=== PATIENT | female | born 1975 | race Caucasian/White ===

== ENCOUNTER 2016-10-20 13:59 | Emergency (ER) | payer OTHER ==
[~2016-10-20] VITALS: Ht 160 cm; Wt 63.5 kg
[~2016-10-20 13:59] MED LIST: AMOX500T2 PO; BENT20TA PO; CLON0.5T PO; FLAG500T PO; METO25TAB PO; MULT1TAB8 PO; PROBCAP14 PO; PROT1TAB2 PO
[2016-10-20] MEDS ORDERED: TOPA25TA10 PO (14:26)
[2016-10-20] MEDS ORDERED: diphenhydrAMINE INJ 50MG/ML VIAL (J1200) IV STA (14:43)
[2016-10-20] MEDS ORDERED: NS 1,000 ML IV ONE (14:45)
[2016-10-20] MEDS ORDERED: METOCLOPRAMIDE INJ 10MG/2ML VIAL (J2765) IV ONE (14:45)
[2016-10-20 15:27] LABS: BASO # 0.1 K/mm3 (0.0-0.2); BASO % 1.2 % (0.0-1.0); EOS # 0.5 K/mm3 (0.0-0.50); EOS % 6.4 % (0.0-3.0); LARGE UNSTAINED CELL # 0.1 K/mm3 (0.0-0.4); LARGE UNSTAINED CELL % 1.3 % (0.0-4.0); LYMPH # 1.9 K/mm3 (1.5-4.5); LYMPH % 24.1 % (24.0-44.0); MEAN CORPUSCULAR HEMOGLOBIN 32.8 pg (27.0-33.0); MEAN CORPUSCULAR HGB CONC 34.6 g/dl (32.0-36.5); MEAN CORPUSCULAR VOLUME 94.8 fl (80.0-96.0); MONO # 0.5 K/mm3 (0.0-0.8); NEUTROPHILS # 4.6 K/mm3 (1.8-7.7); PLATELET COUNT, AUTOMATED 304 k/mm3 (150-450); RED CELL DISTRIBUTION WIDTH 12.1 % (11.5-14.5); WHITE BLOOD COUNT 7.6 K/mm3 (4.0-10.0)
[2016-10-20 15:33] LABS: INR 1.07
[2016-10-20 15:46] LABS: ANION GAP 3 MEQ/L (8-16); BLOOD UREA NITROGEN 7 MG/DL (7-18); CALCIUM LEVEL 8.5 MG/DL (8.5-10.1); CARBON DIOXIDE LEVEL 27 MEQ/L (21-32); CHLORIDE LEVEL 109 MEQ/L (98-107); CREATININE FOR GFR 0.68 MG/DL (0.55-1.02); GLOMERULAR FILTRATION RATE > 60.0 (>58); GLUCOSE, FASTING 90 MG/DL (70-105); POTASSIUM SERUM 4.3 MEQ/L (3.5-5.1); SODIUM LEVEL 139 MEQ/L (136-145)
[2016-10-20 15:54] LABS: ERYTHROCYTE SEDIMENTATION RATE 6 mm/hr (0-20)
[2016-10-20] MEDS ORDERED: KETOROLAC 30 MG/ML VIAL (J1885) IV ONE (16:15)
--- NOTE | 2016-10-20 16:20 | REP ---
CT study of the brain without contrast: History: Left-sided weakness and headache. Comparison head CT study July 29, 2016, done at [facility]. CT findings: Digital lateral shingle cutter radiograph is unremarkable. Bone window settings demonstrate an intact bony calvarium. There is some mucosal thickening and mucus in the left side of the sphenoid sinus again noted. No intraorbital abnormality is seen. On soft tissue window settings, the lateral, third, and fourth ventricles are normal in size and position. Mancilla-white differentiation pattern is normal above and below the tentorium. There is no evidence of intracranial hemorrhage. No infarction is seen. No extra-axial fluid collection or mass lesion is observed. Impression: Mucus in the left side of the sphenoid sinus again noted. Otherwise negative noncontrast head CT. Signed by Naveed Olguin MD 10/20/2016 04:45 P
[2016-10-20 16:52] VITALS: BP 118/65
--- NOTE | 2016-10-22 21:12 | ED PDOC ---
Post-Departure Follow-Up dr pelayo and dr zaragoza faxed formal report of ct head for fu Jan Varghese MD Oct 22, 2016 21:12
== END 2016-10-20 17:14 | disposition home or self-care (01) ==
LOC: M ED 14:52
DX: G43.909 Migraine, unspecified, not intractable, without status migrainosus (principal); M50.30 Other cervical disc degeneration, unspecified cervical region; I10 Essential (primary) hypertension; F31.9 Bipolar disorder, unspecified; K57.90 Diverticulosis of intestine, part unspecified, without perforation or abscess without bleeding; F17.210 Nicotine dependence, cigarettes, uncomplicated; Z79.899 Other long term (current) drug therapy; Z88.1 Allergy status to other antibiotic agents; Z88.5 Allergy status to narcotic agent
CPT/HCPCS: 36415; 70450; 80048; 85025; 85610; 85652; 85730; 86140; 96374; 96375; 99283; J1200; J1885; J2765

== ENCOUNTER 2017-02-17 12:08 | Emergency (ER) | payer OTHER ==
[~2017-02-17] VITALS: Ht 160 cm; Wt 71.4 kg
[~2017-02-17 12:08] MED LIST changes: +TOPA1TAB PO
[2017-02-17] MEDS ORDERED: METO-346 PO (12:22)
[2017-02-17 13:09] LABS: BASO # 0.1 K/mm3 (0.0-0.2); EOS # 0.3 K/mm3 (0.0-0.50); EOS % 4.7 % (0.0-3.0); LARGE UNSTAINED CELL # 0.1 K/mm3 (0.0-0.4); LARGE UNSTAINED CELL % 1.9 % (0.0-4.0); LYMPH # 2.2 K/mm3 (1.5-4.5); LYMPH % 29.1 % (24.0-44.0); MEAN CORPUSCULAR HEMOGLOBIN 33.1 pg (27.0-33.0); MEAN CORPUSCULAR HGB CONC 34.7 g/dl (32.0-36.5); MEAN CORPUSCULAR VOLUME 95.4 fl (80.0-96.0); MONO # 0.3 K/mm3 (0.0-0.8); MONO % 3.8 % (0.0-5.0); NEUTROPHILS # 4.1 K/mm3 (1.8-7.7); NEUTROPHILS % 59.4 % (36.0-66.0); PLATELET COUNT, AUTOMATED 271 k/mm3 (150-450); RED CELL DISTRIBUTION WIDTH 12.5 % (11.5-14.5); WHITE BLOOD COUNT 6.9 K/mm3 (4.0-10.0)
[2017-02-17 13:15] LABS: INR 0.94
[2017-02-17 13:31] LABS: ALBUMIN 3.7 GM/DL (3.2-5.2); ALBUMIN/GLOBULIN RATIO 0.95 (1.00-1.93); ALKALINE PHOSPHATASE 63 U/L (45-117); ALT/SGPT 27 U/L (12-78); ANION GAP 6 MEQ/L (8-16); AST/SGOT 17 U/L (15-37); BILIRUBIN,DIRECT < 0.1 MG/DL (0.0-0.2); BILIRUBIN,TOTAL 0.4 MG/DL (0.2-1.0); BLOOD UREA NITROGEN 6 MG/DL (7-18); CALCIUM LEVEL 8.7 MG/DL (8.5-10.1); CARBON DIOXIDE LEVEL 27 MEQ/L (21-32); CHLORIDE LEVEL 106 MEQ/L (98-107); GLOMERULAR FILTRATION RATE > 60.0 (>58); GLUCOSE, FASTING 93 MG/DL (70-105); POTASSIUM SERUM 3.6 MEQ/L (3.5-5.1); SODIUM LEVEL 139 MEQ/L (136-145); TOTAL PROTEIN 7.6 GM/DL (6.4-8.2)
[2017-02-17] MEDS ORDERED: NS 1,000 ML IV ONE (14:15)
[2017-02-17] MEDS ORDERED: LORazepam 2 MG/ML VIAL (J2060) IV STA (14:18)
[2017-02-17 14:26] LABS: MAGNESIUM LEVEL 2.5 MG/DL (1.8-2.4)
--- NOTE | 2017-02-17 14:43 | REP ---
CHEST, TWO VIEWS: There is no evidence of acute infiltrate. No pleural effusion is seen. The heart is normal in size. The mediastinal silhouette is unremarkable. The visualized osseous structures are intact. IMPRESSION: No acute pulmonary disease. Signed by Herbie Mancilla MD 02/17/2017 08:12 P
[2017-02-17 16:28] VITALS: BP 125/78
--- NOTE | 2017-02-18 20:06 | ECGEPIP ---
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
[2017-05-17] MEDS ORDERED: BACT800T5 PO (10:21)
[2017-05-17] MEDS ORDERED: FLAG500T PO (10:21)
[2017-05-17] MEDS ORDERED: NORCOTAB PO (10:22)
== END 2017-02-17 16:32 | disposition home or self-care (01) ==
LOC: M ED 12:08
DX: R00.2 Palpitations (principal); I10 Essential (primary) hypertension; R53.83 Other fatigue; F41.9 Anxiety disorder, unspecified; F17.200 Nicotine dependence, unspecified, uncomplicated; Z79.899 Other long term (current) drug therapy; Z88.5 Allergy status to narcotic agent; Z88.1 Allergy status to other antibiotic agents
CPT/HCPCS: 71020; 80048; 80076; 82550; 82553; 83690; 83735; 84443; 85025; 85610; 85730; 93000; 93041; 94760; 96374; 99285; J2060

== ENCOUNTER → 2017-03-12 | Outpatient (REF) | payer OTHER ==
[~2017-03-12] MED LIST changes: +BACT800T5 PO; +METH4PACK; +METO-346 PO; +NORCOTAB PO; +PRED20TA PO
== END ==
LOC: M SFHCLERA 19:30
PROVIDERS: ATTEND Nurse Practitioner Family
DX: J06.9 Acute upper respiratory infection, unspecified (principal); N30.01 Acute cystitis with hematuria

== ENCOUNTER → 2017-03-13 | Outpatient (CLI) | payer OTHER ==
--- NOTE | 2017-03-13 18:25 | REP ---
Clinical: Acute cough . Comparison: 02/17/2017 . Technique: PA and lateral. Findings: The mediastinum and cardiac silhouette are normal. The lung cervantes are clear and without acute consolidation, effusion, or pneumothorax. The skeletal structures are intact and normal. Impression: 1. No acute cardiopulmonary process. Signed by Willem Deng MD 03/13/2017 06:16 P
== END ==
LOC: M LRY 18:00
PROVIDERS: ATTEND Nurse Practitioner Family
DX: R05 Cough (principal)

== ENCOUNTER 2017-03-18 16:56 | Emergency (ER) | payer OTHER ==
[~2017-03-18] VITALS: Ht 160 cm; Wt 65.9 kg
[~2017-03-18 16:56] MED LIST changes: -BACT800T5 PO; -METH4PACK; -NORCOTAB PO; -PRED20TA PO
[2017-03-18] MEDS ORDERED: METH4PACK (17:30)
[2017-03-18] MEDS ORDERED: IPRATROPIUM 0.5MG/ALBUTEROL 2.5MG INH SOL UD 3ML (DUONEB)(J7620) NEB PRN (17:45)
[2017-03-18] MEDS ORDERED: IPRATROPIUM 0.5MG/ALBUTEROL 2.5MG INH SOL UD 3ML (DUONEB)(J7620) NEB ONE (17:45)
[2017-03-18] MEDS ORDERED: ALBUTEROL SULFATE 2.5 MG/0.5 ML INH NEB SOLN INH ONE (17:45)
[2017-03-18] MEDS ORDERED: methylPREDNISolone INJ 125 MG/2 ML VIAL (J2930) IM ONE (18:30)
[2017-03-18] MEDS ORDERED: PRED20TA PO (18:42)
[2017-03-18 18:51] VITALS: BP 135/92
[2017-05-17] MEDS ORDERED: BACT800T5 PO (10:21)
[2017-05-17] MEDS ORDERED: FLAG500T PO (10:21)
[2017-05-17] MEDS ORDERED: NORCOTAB PO (10:22)
== END 2017-03-18 18:52 | disposition home or self-care (01) ==
LOC: M ED 16:56
DX: J45.901 Unspecified asthma with (acute) exacerbation (principal); J06.9 Acute upper respiratory infection, unspecified; F41.9 Anxiety disorder, unspecified; F31.9 Bipolar disorder, unspecified; F17.210 Nicotine dependence, cigarettes, uncomplicated; Z88.5 Allergy status to narcotic agent; Z88.1 Allergy status to other antibiotic agents; Z79.899 Other long term (current) drug therapy
CPT/HCPCS: 94640; 96372; 99282; J2930

== ENCOUNTER 2017-07-13 10:43 | Emergency (ER) | payer OTHER ==
[2017-07-13] MEDS: NS 1,000 ML IV (11:30)
[2017-07-13 11:56] LABS: BASO # 0.1 10^3/uL (0.0-0.2); BASO % 1.1 % (0.0-1.0); EOS # 0.8 10^3/uL (0.0-0.50); EOS % 8.4 % (0.0-3.0); HEMATOCRIT 39.4 % (36.0-47.0); HEMOGLOBIN 13.5 g/dl (12.0-16.0); IMMATURE GRANULOCYTE % 0.3 % (0-0); LYMPH # 2.2 10^3/uL (1.5-4.5); LYMPH % 23.5 % (24.0-44.0); MEAN CORPUSCULAR HGB CONC 34.3 g/dl (32.0-36.5); MEAN CORPUSCULAR VOLUME 96.3 fl (80.0-96.0); MONO # 0.7 10^3/uL (0.0-0.8); MONO % 7.3 % (0.0-5.0); NEUTROPHILS # 5.4 10^3/uL (1.8-7.7); NEUTROPHILS % 59.4 % (36.0-66.0); PLATELET COUNT, AUTOMATED 278 10^3/uL (150-450); RED BLOOD COUNT 4.09 10^6/uL (4.00-5.40); RED CELL DISTRIBUTION WIDTH 12.6 % (11.5-14.5); WHITE BLOOD COUNT 9.1 10^3/uL (4.0-10.0)
[2017-07-13 11:57] LABS: AMORPHOUS SEDIMENT RFX SMALL (NEGATIVE); KETONE, URINE AUTO RFX TRACE mg/dL (NEGATIVE); LEUKOCYTE ESTERASE UR AUTO RFX 1+ (NEGATIVE); NITRITE, URINE AUTO RFX NEGATIVE (NEGATIVE); RBC, URINE AUTO RFX 3 /HPF (0-3); SPECIFIC GRAVITY UR AUTO RFX 1.017 (1.002-1.035); SQUAM EPITHELIAL CELL UR AURFX 14 /HPF (0-6); WBC, URINE AUTO RFX 3 /HPF (0-3)
[2017-07-13] MEDS: ONDANSETRON 4MG/2ML VIAL (J2405) IV (12:00)
[2017-07-13] MEDS: KETOROLAC 30 MG/ML VIAL (J1885) IV (12:00)
[2017-07-13 12:17] LABS: ALBUMIN 3.6 GM/DL (3.2-5.2); ALBUMIN/GLOBULIN RATIO 1.13 (1.00-1.93); ALKALINE PHOSPHATASE 68 U/L (45-117); ALT/SGPT 42 U/L (12-78); AMYLASE 22 U/L (25-115); ANION GAP 9 MEQ/L (8-16); AST/SGOT 30 U/L (7-37); BILIRUBIN,TOTAL 0.2 MG/DL (0.2-1.0); BLOOD UREA NITROGEN 9 MG/DL (7-18); CALCIUM LEVEL 8.4 MG/DL (8.5-10.1); CARBON DIOXIDE LEVEL 24 MEQ/L (21-32); CHLORIDE LEVEL 107 MEQ/L (98-107); CREATININE FOR GFR 0.65 MG/DL (0.55-1.02); GLOMERULAR FILTRATION RATE > 60.0 (>58); GLUCOSE, FASTING 91 MG/DL (70-105); LIPASE 92 U/L (73-393); SODIUM LEVEL 140 MEQ/L (136-145); TOTAL PROTEIN 6.8 GM/DL (6.4-8.2)
[2017-07-13] MEDS: PHENAZOPYRIDINE 100 MG TAB PO (13:02)
[2017-07-13] MEDS: NITROFURANTOIN (MACROBID) 100 MG CAP PO (13:02)
[2017-07-13] MEDS: DICYCLOMINE 10 MG CAP PO (13:02)
[2017-07-13] MEDS: PERCOCET 5MG/325MG TAB PO (13:10)
== END 2017-07-13 13:21 | disposition home or self-care (01) ==
LOC: M ED 10:43
DX: R19.7 Diarrhea, unspecified (principal); K57.30 Diverticulosis of large intestine without perforation or abscess without bleeding; N39.0 Urinary tract infection, site not specified; J45.909 Unspecified asthma, uncomplicated; I10 Essential (primary) hypertension; K21.9 Gastro-esophageal reflux disease without esophagitis; F17.210 Nicotine dependence, cigarettes, uncomplicated; F41.9 Anxiety disorder, unspecified; F31.9 Bipolar disorder, unspecified; Z79.899 Other long term (current) drug therapy; Z88.5 Allergy status to narcotic agent; Z88.1 Allergy status to other antibiotic agents; Z98.890 Other specified postprocedural states
CPT/HCPCS: J2405

== ENCOUNTER 2017-08-08 06:11 | Emergency (ER) | payer OTHER ==
[2017-08-08] MEDS: KETOROLAC 60 MG/2 ML VIAL (J1885) IM (07:16)
== END 2017-08-08 08:24 | disposition home or self-care (01) ==
LOC: M ED 06:11
DX: S93.402A Sprain of unspecified ligament of left ankle, initial encounter (principal); X50.9XXA Other and unspecified overexertion or strenuous movements or postures, initial encounter; Y92.89 Other specified places as the place of occurrence of the external cause; J45.909 Unspecified asthma, uncomplicated; F31.9 Bipolar disorder, unspecified; F17.210 Nicotine dependence, cigarettes, uncomplicated; Z79.899 Other long term (current) drug therapy; Z88.5 Allergy status to narcotic agent; Z88.1 Allergy status to other antibiotic agents; Z98.890 Other specified postprocedural states
CPT/HCPCS: J1885

== ENCOUNTER 2017-09-02 18:36 | Emergency (ER) | payer OTHER ==
[2017-09-02] MEDS: NS 1,000 ML IV (20:15)
[2017-09-02] MEDS: KETOROLAC 30 MG/ML VIAL (J1885) IV (20:35)
[2017-09-02] MEDS: ONDANSETRON 4MG/2ML VIAL (J2405) IV (20:35)
[2017-09-02 20:38] LABS: BASO # 0.1 10^3/uL (0.0-0.2); BASO % 1.2 % (0.0-1.0); EOS # 0.3 10^3/uL (0.0-0.50); EOS % 2.9 % (0.0-3.0); HEMATOCRIT 39.2 % (36.0-47.0); HEMOGLOBIN 13.5 g/dl (12.0-16.0); IMMATURE GRANULOCYTE % 0.4 % (0-3.0); LYMPH # 2.9 10^3/uL (1.5-4.5); LYMPH % 25.4 % (24.0-44.0); MEAN CORPUSCULAR HEMOGLOBIN 32.5 pg (27.0-33.0); MEAN CORPUSCULAR HGB CONC 34.4 g/dl (32.0-36.5); MEAN CORPUSCULAR VOLUME 94.2 fl (80.0-96.0); MONO # 0.9 10^3/uL (0.0-0.8); MONO % 7.6 % (0.0-5.0); NEUTROPHILS % 62.5 % (36.0-66.0); PLATELET COUNT, AUTOMATED 279 10^3/uL (150-450); RED BLOOD COUNT 4.16 10^6/uL (4.00-5.40); RED CELL DISTRIBUTION WIDTH 11.9 % (11.5-14.5); WHITE BLOOD COUNT 11.2 10^3/uL (4.0-10.0)
[2017-09-02 21:02] LABS: ALBUMIN 3.6 GM/DL (3.2-5.2); ALBUMIN/GLOBULIN RATIO 1.09 (1.00-1.93); ALKALINE PHOSPHATASE 73 U/L (45-117); ALT/SGPT 36 U/L (12-78); ANION GAP 6 MEQ/L (8-16); AST/SGOT 23 U/L (7-37); BILIRUBIN,DIRECT 0.1 MG/DL (0.0-0.2); BILIRUBIN,TOTAL 0.4 MG/DL (0.2-1.0); BLOOD UREA NITROGEN 5 MG/DL (7-18); CALCIUM LEVEL 8.5 MG/DL (8.5-10.1); CARBON DIOXIDE LEVEL 25 MEQ/L (21-32); CHLORIDE LEVEL 108 MEQ/L (98-107); CREATININE FOR GFR 0.53 MG/DL (0.55-1.30); GLOMERULAR FILTRATION RATE > 60.0 (>58); GLUCOSE, FASTING 81 MG/DL (70-100); POTASSIUM SERUM 4.5 MEQ/L (3.5-5.1); SODIUM LEVEL 139 MEQ/L (136-145); TOTAL PROTEIN 6.9 GM/DL (6.4-8.2)
[2017-09-02 21:05] LABS: LACTIC ACID SEPSIS PROTOCOL 0.9 MMOL/L (0.4-2.0)
[2017-09-02 21:09] LABS: KETONE, URINE AUTO RFX NEGATIVE (NEGATIVE); LEUKOCYTE ESTERASE UR AUTO RFX NEGATIVE (NEGATIVE); NITRITE, URINE AUTO RFX NEGATIVE (NEGATIVE); RBC, URINE AUTO RFX 1 /HPF (0-3); SPECIFIC GRAVITY UR AUTO RFX 1.001 (1.002-1.035); SQUAM EPITHELIAL CELL UR AURFX 1 /HPF (0-6); WBC, URINE AUTO RFX 1 /HPF (0-3)
[2017-09-02] MEDS ORDERED: ISOVUE-370 76% 100ML VIAL (Q9967) As Ordered (21:19)
[2017-09-02] MEDS: PIPERACILLIN/TAZOBACTAM SOD 3.375 GM in APPROPRIATE DILUENT 1 EA IV (23:53)
[2017-09-03] MEDS: OXYCODONE/APAP 5MG/325MG(BULK FOR ED) 1 TABLET PO (00:31)
== END 2017-09-03 00:46 | disposition home or self-care (01) ==
LOC: M ED 09-03 00:46
DX: K57.30 Diverticulosis of large intestine without perforation or abscess without bleeding (principal); F17.200 Nicotine dependence, unspecified, uncomplicated; Z79.899 Other long term (current) drug therapy; Z88.1 Allergy status to other antibiotic agents; Z88.5 Allergy status to narcotic agent
CPT/HCPCS: J2405

== ENCOUNTER 2017-12-25 06:51 | Inpatient (IN) | payer OTHER ==
[2017-12-25 07:50] LABS: HEMATOCRIT 42.8 % (36.0-47.0); HEMOGLOBIN 14.9 g/dl (12.0-15.5); MEAN CORPUSCULAR HEMOGLOBIN 31.9 pg (27.0-33.0); MEAN CORPUSCULAR HGB CONC 34.8 g/dl (32.0-36.5); MEAN CORPUSCULAR VOLUME 91.6 fl (80.0-96.0); PLATELET COUNT, AUTOMATED 272 10^3/uL (150-450); RED BLOOD COUNT 4.67 10^6/uL (4.00-5.40); RED CELL DISTRIBUTION WIDTH 12.7 % (11.5-14.5); WHITE BLOOD COUNT 9.2 10^3/uL (4.0-10.0)
[2017-12-25 08:13] LABS: AMPHETAMINES LEVEL URINE NEGATIVE (NEGATIVE); BARBITURATES URINE NEGATIVE (NEGATIVE); BENZODIAZEPINES URINE NEGATIVE (NEGATIVE); CANNABINOIDS URINE NEGATIVE (NEGATIVE); COCAINE METABOLITE URINE NEGATIVE (NEGATIVE); METHADONE URINE NEGATIVE (NEGATIVE); OPIATES URINE NEGATIVE (NEGATIVE); PHENCYCLIDINE URINE NEGATIVE (NEGATIVE)
[2017-12-25 08:15] LABS: CONTROL LINE HCG INT CTR LINE PRESENT; HCG, SERUM QUALITATIVE NEGATIVE (NEGATIVE)
[2017-12-25 08:24] LABS: ALBUMIN/GLOBULIN RATIO 1.03 (1.00-1.93); ALKALINE PHOSPHATASE 68 U/L (45-117); ALT/SGPT 31 U/L (12-78); ANION GAP 13 MEQ/L (8-16); AST/SGOT 23 U/L (7-37); BILIRUBIN,DIRECT < 0.1 MG/DL (0.0-0.2); BILIRUBIN,TOTAL 0.2 MG/DL (0.2-1.0); BLOOD UREA NITROGEN 5 MG/DL (7-18); CALCIUM LEVEL 8.2 MG/DL (8.5-10.1); CARBON DIOXIDE LEVEL 19 MEQ/L (21-32); CHLORIDE LEVEL 108 MEQ/L (98-107); CREATININE FOR GFR 0.58 MG/DL (0.55-1.30); ETHYL ALCOHOL (ETHANOL) 0.208 % (0.000-0.010); GLOMERULAR FILTRATION RATE > 60.0 (>58); GLUCOSE, FASTING 87 MG/DL (70-100); POTASSIUM SERUM 3.8 MEQ/L (3.5-5.1); SALICYLATE LEVEL 5.8 MG/DL (5.0-30.0); SODIUM LEVEL 140 MEQ/L (136-145); THYROID STIMULATING HORMONE 0.903 uIU/ML (0.358-3.740); TOTAL PROTEIN 7.9 GM/DL (6.4-8.2)
[2017-12-25 08:30] LABS: ACETAMINOPHEN LEVEL < 2.0 UG/ML (10.0-30.0)
[2017-12-25] MEDS: METOPROLOL TART 25 MG TABLET PO ×2 (11:27→20:18)
[2017-12-25] MEDS ORDERED: MAALOX 30 ML SUSP *UDC PO (18:30)
[2017-12-25] MEDS ORDERED: MOM 30ML SUSPENSION UDC PO (18:30)
[2017-12-25] MEDS: traZODone 50 MG TAB PO (20:18)
[2017-12-25] MEDS: PANTOPRAZOLE 40MG TAB (PROTONIX) PO (20:18)
[2017-12-26] MEDS: NICOTINE 21MG/24HR 1 EA TRANSDERMAL TD (09:00)
[2017-12-26] MEDS: LACTOBACILLUS ACIDOPHILUS CAP (BACID) PO (09:16)
[2017-12-26] MEDS: METOPROLOL TART 25 MG TABLET PO ×2 (09:21→20:41)
[2017-12-26] MEDS: ACETAMINOPHEN TAB 650MG DOSE (2X325MG) PO (09:23)
[2017-12-26] MEDS: ALBUTEROL 90 MCG/ACT 8GM HFA INHALER INH (10:20)
[2017-12-26] MEDS: LORazepam 1 MG TAB PO ×2 (10:20→20:39)
[2017-12-26] MEDS: PANTOPRAZOLE 40MG TAB (PROTONIX) PO (20:41)
[2017-12-26] MEDS: ARIPiprazole 2 MG TAB PO (20:41)
[2017-12-26] MEDS: NYSTATIN 100,000 UNITS/GM TOPICAL PWD 15 GM TOP (21:00)
[2017-12-26] MEDS: BETAMETHASONE DIP 0.05% OINT 15 GM TOP (21:00)
[2017-12-27] MEDS: BETAMETHASONE DIP 0.05% OINT 15 GM TOP ×2 (08:08→20:09)
[2017-12-27] MEDS: NYSTATIN 100,000 UNITS/GM TOPICAL PWD 15 GM TOP ×2 (08:08→20:08)
[2017-12-27] MEDS: NICOTINE 21MG/24HR 1 EA TRANSDERMAL TD (08:09)
[2017-12-27] MEDS: METOPROLOL TART 25 MG TABLET PO ×2 (08:09→20:05)
[2017-12-27] MEDS: LACTOBACILLUS ACIDOPHILUS CAP (BACID) PO (08:09)
[2017-12-27] MEDS: LORazepam 1 MG TAB PO ×2 (10:55→20:07)
[2017-12-27] MEDS: PANTOPRAZOLE 40MG TAB (PROTONIX) PO (20:06)
[2017-12-27] MEDS: ARIPiprazole 2 MG TAB PO (20:06)
[2017-12-28] MEDS: ACETAMINOPHEN TAB 650MG DOSE (2X325MG) PO (03:40)
[2017-12-28] MEDS: METOPROLOL TART 25 MG TABLET PO ×2 (08:45→20:21)
[2017-12-28] MEDS: NICOTINE 21MG/24HR 1 EA TRANSDERMAL TD (08:45)
[2017-12-28] MEDS: LACTOBACILLUS ACIDOPHILUS CAP (BACID) PO (08:45)
[2017-12-28] MEDS: NYSTATIN 100,000 UNITS/GM TOPICAL PWD 15 GM TOP ×2 (08:46→21:20)
[2017-12-28] MEDS: BETAMETHASONE DIP 0.05% OINT 15 GM TOP ×2 (08:46→21:21)
[2017-12-28] MEDS: LORazepam 1 MG TAB PO (11:00)
[2017-12-28] MEDS: clonazePAM 0.5 MG TAB PO (16:43)
[2017-12-28] MEDS: IBUPROFEN 600 MG TAB PO (16:43)
[2017-12-28] MEDS: PANTOPRAZOLE 40MG TAB (PROTONIX) PO (20:18)
[2017-12-28] MEDS: PARoxetine 10MG TABLET PO (20:18)
[2017-12-29] MEDS: clonazePAM 0.5 MG TAB PO ×2 (06:59→20:05)
[2017-12-29] MEDS: IBUPROFEN 600 MG TAB PO (07:00)
[2017-12-29] MEDS: BETAMETHASONE DIP 0.05% OINT 15 GM TOP ×3 (09:00→20:10)
[2017-12-29] MEDS: METOPROLOL TART 25 MG TABLET PO ×3 (09:00→20:07)
[2017-12-29] MEDS: NICOTINE 21MG/24HR 1 EA TRANSDERMAL TD (09:00)
[2017-12-29] MEDS: NYSTATIN 100,000 UNITS/GM TOPICAL PWD 15 GM TOP ×2 (09:00→20:11)
[2017-12-29] MEDS: LACTOBACILLUS ACIDOPHILUS CAP (BACID) PO ×2 (09:00→11:52)
[2017-12-29] MEDS: PARoxetine 10MG TABLET PO (20:07)
[2017-12-29] MEDS: PANTOPRAZOLE 40MG TAB (PROTONIX) PO (20:08)
[2017-12-30] MEDS: traZODone 50 MG TAB PO (01:06)
[2017-12-30] MEDS: LACTOBACILLUS ACIDOPHILUS CAP (BACID) PO (08:13)
[2017-12-30] MEDS: clonazePAM 0.5 MG TAB PO (08:14)
[2017-12-30] MEDS: NYSTATIN 100,000 UNITS/GM TOPICAL PWD 15 GM TOP (08:14)
[2017-12-30] MEDS: METOPROLOL TART 25 MG TABLET PO (08:14)
[2017-12-30] MEDS: NICOTINE 21MG/24HR 1 EA TRANSDERMAL TD (08:15)
[2017-12-30] MEDS: BETAMETHASONE DIP 0.05% OINT 15 GM TOP (08:15)
== END 2017-12-30 10:05 | disposition home or self-care (01) | DRG 753 ==
LOC: M ED 06:51 → M ED INP 15:01 → M PSY 16:45
DX: F31.81 Bipolar II disorder (principal); F41.8 Other specified anxiety disorders; F43.10 Post-traumatic stress disorder, unspecified; I10 Essential (primary) hypertension; F17.210 Nicotine dependence, cigarettes, uncomplicated; G43.909 Migraine, unspecified, not intractable, without status migrainosus; K21.9 Gastro-esophageal reflux disease without esophagitis; G47.00 Insomnia, unspecified; Z88.5 Allergy status to narcotic agent; Z88.1 Allergy status to other antibiotic agents; Z79.899 Other long term (current) drug therapy

== ENCOUNTER 2018-07-13 01:32 | Emergency (ER) | payer OTHER ==
[~2018-07-13] VITALS: Ht 160 cm; Wt 69.3 kg
[~2018-07-13 01:32] MED LIST changes: +ARIP5TA PO; +AUGM875T28 PO; +BACT800T5 PO; -CLON0.5T PO; +CLON0.5T8 PO; +DIFL150T PO; +KETO10TAB PO; +MACR100C43 PO; +METH4PACK; +METO1TAB87 PO; +NORCOTAB PO; +PARO10TA3 PO; +PERC5TAB12 PO; +PRED20TA PO; +PYRI1TAB5 PO
[2018-07-13] MEDS ORDERED: CYMB60CA3 PO (01:41)
[2018-07-13 02:50] LABS: HEMATOCRIT 39.4 % (36.0-47.0); HEMOGLOBIN 13.6 g/dl (12.0-15.5); MEAN CORPUSCULAR HEMOGLOBIN 32.5 pg (27.0-33.0); MEAN CORPUSCULAR HGB CONC 34.5 g/dl (32.0-36.5); PLATELET COUNT, AUTOMATED 283 10^3/uL (150-450); RED BLOOD COUNT 4.19 10^6/uL (4.00-5.40); WHITE BLOOD COUNT 6.4 10^3/uL (4.0-10.0)
[2018-07-13 03:09] LABS: HCG, SERUM QUALITATIVE NEGATIVE (NEGATIVE)
[2018-07-13 03:13] LABS: AMPHETAMINES LEVEL URINE NEGATIVE (NEGATIVE); BARBITURATES URINE NEGATIVE (NEGATIVE); BENZODIAZEPINES URINE NEGATIVE (NEGATIVE); CANNABINOIDS URINE NEGATIVE (NEGATIVE); COCAINE METABOLITE URINE NEGATIVE (NEGATIVE); METHADONE URINE NEGATIVE (NEGATIVE); OPIATES URINE NEGATIVE (NEGATIVE); PHENCYCLIDINE URINE NEGATIVE (NEGATIVE)
[2018-07-13 03:28] LABS: ACETAMINOPHEN LEVEL < 2.0 UG/ML (10.0-30.0); ALBUMIN 3.8 GM/DL (3.2-5.2); ALT/SGPT 32 U/L (12-78); BILIRUBIN,DIRECT < 0.1 MG/DL (0.0-0.2); BILIRUBIN,TOTAL 0.2 MG/DL (0.2-1.0); BLOOD UREA NITROGEN 4 MG/DL (7-18); CARBON DIOXIDE LEVEL 20 MEQ/L (21-32); CHLORIDE LEVEL 112 MEQ/L (98-107); CREATININE FOR GFR 0.59 MG/DL (0.55-1.30); ETHYL ALCOHOL (ETHANOL) 0.247 % (0.000-0.010); GLOMERULAR FILTRATION RATE > 60.0 (>58); GLUCOSE, FASTING 89 MG/DL (70-100); POTASSIUM SERUM 4.9 MEQ/L (3.5-5.1); SALICYLATE LEVEL 4.3 MG/DL (5.0-30.0); SODIUM LEVEL 142 MEQ/L (136-145); TOTAL PROTEIN 7.6 GM/DL (6.4-8.2)
[2018-07-13] MEDS ORDERED: BUPR150T3 (08:06)
[2018-07-13] MEDS ORDERED: DULoxetine 30 MG CAP (CYMBALTA) PO ONE (08:45)
[2018-07-13] MEDS ORDERED: METOPROLOL TART 25 MG TABLET PO ONE (08:45)
[2018-07-13 08:55] VITALS: BP 105/62
[2018-07-13 11:05] VITALS: BP 110/73
== END 2018-07-13 11:07 | disposition home or self-care (01) ==
LOC: M ED 01:32
DX: F10.129 Alcohol abuse with intoxication, unspecified (principal); I10 Essential (primary) hypertension; G43.909 Migraine, unspecified, not intractable, without status migrainosus; F32.9 Major depressive disorder, single episode, unspecified
CPT/HCPCS: 80048; 80076; 80307; 84443; 84703; 85027; 99284; G0480

== ENCOUNTER 2018-08-14 00:36 | Emergency (ER) | payer OTHER ==
[~2018-08-14 00:36] MED LIST changes: +BUPR150T3; +CYMB60CA3 PO
[2018-08-14] MEDS ORDERED: NS 1,000 ML IV ONE (01:15)
[2018-08-14 01:18] LABS: HEMATOCRIT 45.3 % (36.0-47.0); HEMOGLOBIN 15.7 g/dl (12.0-15.5); MEAN CORPUSCULAR HEMOGLOBIN 32.3 pg (27.0-33.0); MEAN CORPUSCULAR HGB CONC 34.7 g/dl (32.0-36.5); MEAN CORPUSCULAR VOLUME 93.2 fl (80.0-96.0); PLATELET COUNT, AUTOMATED 352 10^3/uL (150-450); RED BLOOD COUNT 4.86 10^6/uL (4.00-5.40); WHITE BLOOD COUNT 10.5 10^3/uL (4.0-10.0)
[2018-08-14] MEDS ORDERED: diphenhydrAMINE INJ 50MG/ML VIAL (J1200) As Ordered ONE (01:28)
[2018-08-14] MEDS ORDERED: LORazepam 2 MG/ML VIAL (J2060) As Ordered ONE (01:29)
[2018-08-14] MEDS ORDERED: HALOPERIDOL 5 MG/ML VIAL (J1630) As Ordered ONE (01:29)
[2018-08-14] MEDS ORDERED: LORazepam 2 MG/ML VIAL (J2060) IM ONE (01:30)
[2018-08-14] MEDS ORDERED: diphenhydrAMINE INJ 50MG/ML VIAL (J1200) IM ONE (01:30)
[2018-08-14] MEDS ORDERED: HALOPERIDOL 5 MG/ML VIAL (J1630) IM ONE (01:30)
[2018-08-14 01:39] LABS: HCG, SERUM QUALITATIVE NEGATIVE (NEGATIVE)
[2018-08-14 01:57] LABS: ACETAMINOPHEN LEVEL < 2.0 UG/ML (10.0-30.0); ALBUMIN 4.2 GM/DL (3.2-5.2); ALT/SGPT 52 U/L (12-78); BILIRUBIN,DIRECT < 0.1 MG/DL (0.0-0.2); BILIRUBIN,TOTAL 0.2 MG/DL (0.2-1.0); BLOOD UREA NITROGEN 5 MG/DL (7-18); CALCIUM LEVEL 8.6 MG/DL (8.5-10.1); CARBON DIOXIDE LEVEL 23 MEQ/L (21-32); CHLORIDE LEVEL 111 MEQ/L (98-107); CREATININE FOR GFR 0.75 MG/DL (0.55-1.30); ETHYL ALCOHOL (ETHANOL) 0.277 % (0.000-0.010); GLOMERULAR FILTRATION RATE > 60.0 (>58); GLUCOSE, FASTING 98 MG/DL (70-100); POTASSIUM SERUM 4.2 MEQ/L (3.5-5.1); SALICYLATE LEVEL 4.9 MG/DL (5.0-30.0); SODIUM LEVEL 144 MEQ/L (136-145)
[2018-08-14 04:24] LABS: AMPHETAMINES LEVEL URINE NEGATIVE (NEGATIVE); BARBITURATES URINE NEGATIVE (NEGATIVE); BENZODIAZEPINES URINE NEGATIVE (NEGATIVE); CANNABINOIDS URINE NEGATIVE (NEGATIVE); COCAINE METABOLITE URINE NEGATIVE (NEGATIVE); METHADONE URINE NEGATIVE (NEGATIVE); OPIATES URINE NEGATIVE (NEGATIVE); PHENCYCLIDINE URINE NEGATIVE (NEGATIVE)
[2018-08-14] MEDS ORDERED: METOPROLOL TART 25 MG TABLET PO ONE (11:15)
[2018-08-14 11:22] VITALS: BP 119/69
[2018-08-14 11:35] VITALS: BP 117/69
== END 2018-08-14 11:36 | disposition home or self-care (01) ==
LOC: M ED 00:36
DX: F10.129 Alcohol abuse with intoxication, unspecified (principal); Z88.1 Allergy status to other antibiotic agents; Z88.5 Allergy status to narcotic agent
CPT/HCPCS: 80048; 80076; 80307; 84443; 84703; 85027; 96360; 96361; 96372; 99285; G0480; J1200; J1630; J2060

== ENCOUNTER → 2018-08-28 | Outpatient (CLI) | payer OTHER ==
--- NOTE | 2018-08-29 09:06 | REP ---
LEFT SHOULDER, COMPLETE: 08/28/2018. Comparison is the PA chest 02/17/2017 showing a portion of the shoulder. CLINICAL HISTORY: Left arm and neck pain. Neck pain radiates into the upper and lower left arm. FINDINGS: Three views are provided. There is a bone island in the glenoid, as on previous study. AC joint shows no widening of the joint space or elevation of clavicle and minimal inferior spurring. There is no subluxation or dislocation in the humeral head from the glenoid. Humerus without fracture or focal lesion. The scapula and clavicle without fracture. Visualized ribs intact. IMPRESSION: 1. Bone island in the glenoid but no fracture, avulsion, subluxation, or acute bony finding. 2. Minor spurring at the inferior aspect the AC joint. Electronically Signed by Jm Domínguez MD 08/29/2018 09:14 A
--- NOTE | 2018-08-29 09:09 | REP ---
CERVICAL SPINE COMPLETE: 08/28/2018. CLINICAL HISTORY: Neck pain. Symptoms radiated to the left upper extremity. FINDINGS: Seven views are provided. The lateral view shows slight reversal of the normal cervical lordosis at C4-5. There is a couple millimeters of anterolisthesis of C3 on C4. The vertebral body heights are maintained throughout. The disc space height is slightly narrowed at C5-6, minimally at C4-5. The other levels intact. Dens intact and its relationship to the lateral masses normal. There is adequate extension and flexion with no instability. The dens and lateral masses align normally on the open-mouth view. No prevertebral swelling. The foramina are ample bilaterally with small spurs noted predominantly on the left at C4-5 and C5-6 and on the right at those same levels. These do not cause foraminal encroachment. IMPRESSION: 1. There is mild straightening of the spine with reversal of lordosis that may reflect some spasm but adequate range of motion and no instability. No compression deformity. 2. Minor spurring of uncinate processes at the foramina C5-6 and C4-5 bilaterally not causing foraminal stenosis. Electronically Signed by Jm Domínguez MD 08/29/2018 09:14 A
== END ==
LOC: M LRY 17:15
PROVIDERS: ATTEND Physician Assistant
DX: M79.602 Pain in left arm (principal); M54.2 Cervicalgia; M25.712 Osteophyte, left shoulder

== ENCOUNTER 2018-11-06 16:26 | Emergency (ER) | payer OTHER ==
[~2018-11-06] VITALS: Ht 160 cm; Wt 71.2 kg
[~2018-11-06 16:26] MED LIST changes: +ARIP1TAB6 PO; -ARIP5TA PO; +HYDR-3715 PO; +METO1TAB63 PO; -METO25TAB PO; -NORCOTAB PO
[2018-11-06] MEDS ORDERED: NS 1,000 ML IV ONE (17:45)
[2018-11-06 18:22] LABS: BASO # 0.1 10^3/uL (0.0-0.2); BASO % 1.2 % (0.0-1.0); EOS # 0.3 10^3/uL (0.0-0.50); EOS % 3.1 % (0.0-3.0); HEMATOCRIT 42.2 % (36.0-47.0); HEMOGLOBIN 14.7 g/dl (12.0-15.5); LYMPH # 2.3 10^3/uL (1.5-4.5); LYMPH % 24.1 % (24.0-44.0); MEAN CORPUSCULAR HEMOGLOBIN 32.5 pg (27.0-33.0); MEAN CORPUSCULAR HGB CONC 34.8 g/dl (32.0-36.5); MEAN CORPUSCULAR VOLUME 93.2 fl (80.0-96.0); MONO # 0.6 10^3/uL (0.0-0.8); NEUTROPHILS # 6.1 10^3/uL (1.8-7.7); NEUTROPHILS % 65.3 % (36.0-66.0); PLATELET COUNT, AUTOMATED 299 10^3/uL (150-450); RED BLOOD COUNT 4.53 10^6/uL (4.00-5.40); WHITE BLOOD COUNT 9.4 10^3/uL (4.0-10.0)
[2018-11-06 18:42] LABS: HCG, SERUM QUALITATIVE NEGATIVE (NEGATIVE)
[2018-11-06 18:47] LABS: BLOOD UREA NITROGEN 7 MG/DL (7-18); CALCIUM LEVEL 8.7 MG/DL (8.5-10.1); CARBON DIOXIDE LEVEL 24 MEQ/L (21-32); CHLORIDE LEVEL 107 MEQ/L (98-107); CREATININE FOR GFR 0.71 MG/DL (0.55-1.30); GLOMERULAR FILTRATION RATE > 60.0 (>58); GLUCOSE, FASTING 76 MG/DL (70-100); POTASSIUM SERUM 4.2 MEQ/L (3.5-5.1); SODIUM LEVEL 140 MEQ/L (136-145)
[2018-11-06 20:00] VITALS: BP 128/81
--- NOTE | 2018-11-08 07:35 | ECGEPIP ---
Stationary ECG Study 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
== END 2018-11-06 20:09 | disposition home or self-care (01) ==
LOC: M ED 16:26
DX: R42 Dizziness and giddiness (principal); R06.02 Shortness of breath; R51 Headache; J45.909 Unspecified asthma, uncomplicated; F41.9 Anxiety disorder, unspecified; K21.9 Gastro-esophageal reflux disease without esophagitis; G89.29 Other chronic pain; M54.2 Cervicalgia; Z88.1 Allergy status to other antibiotic agents; Z88.5 Allergy status to narcotic agent; F17.210 Nicotine dependence, cigarettes, uncomplicated

== ENCOUNTER 2019-02-23 01:41 | Emergency (ER) | payer OTHER ==
[~2019-02-23 01:41] MED LIST changes: +GABA-843 PO; +PRED5TA; +TIZA4TAB4 PO
[2019-02-23 02:05] LABS: HEMATOCRIT 42.2 % (36.0-47.0); HEMOGLOBIN 14.6 g/dl (12.0-15.5); MEAN CORPUSCULAR HEMOGLOBIN 32.6 pg (27.0-33.0); MEAN CORPUSCULAR HGB CONC 34.6 g/dl (32.0-36.5); MEAN CORPUSCULAR VOLUME 94.2 fl (80.0-96.0); PLATELET COUNT, AUTOMATED 315 10^3/uL (150-450); RED BLOOD COUNT 4.48 10^6/uL (4.00-5.40); WHITE BLOOD COUNT 8.3 10^3/uL (4.0-10.0)
[2019-02-23] MEDS ORDERED: LAMO25TA4 PO (02:19)
[2019-02-23] MEDS ORDERED: TETANUS/DIPHTHERIA TOX ADSORB ADULT 0.5ML SYR/VIAL (90714) IM ONE (02:30)
[2019-02-23 02:45] LABS: HCG, SERUM QUALITATIVE NEGATIVE (NEGATIVE)
[2019-02-23 02:49] LABS: ACETAMINOPHEN LEVEL < 2.0 UG/ML (10.0-30.0); ALBUMIN 3.7 GM/DL (3.2-5.2); ALT/SGPT 59 U/L (12-78); BILIRUBIN,DIRECT < 0.1 MG/DL (0.0-0.2); BILIRUBIN,TOTAL 0.2 MG/DL (0.2-1.0); BLOOD UREA NITROGEN 3 MG/DL (7-18); CALCIUM LEVEL 8.6 MG/DL (8.5-10.1); CARBON DIOXIDE LEVEL 27 MEQ/L (21-32); CHLORIDE LEVEL 108 MEQ/L (98-107); CREATININE FOR GFR 0.76 MG/DL (0.55-1.30); ETHYL ALCOHOL (ETHANOL) 0.179 % (0.000-0.010); GLOMERULAR FILTRATION RATE > 60.0 (>58); GLUCOSE, FASTING 106 MG/DL (70-100); SALICYLATE LEVEL 3.5 MG/DL (5.0-30.0); SODIUM LEVEL 145 MEQ/L (136-145); THYROID STIMULATING HORMONE 0.894 uIU/ML (0.358-3.740); TOTAL PROTEIN 7.2 GM/DL (6.4-8.2)
[2019-02-23] MEDS ORDERED: METOPROLOL TART 25 MG TABLET PO ONE (09:30)
[2019-02-23 09:37] VITALS: BP 116/70
[2019-02-23 10:06] LABS: AMPHETAMINES LEVEL URINE NEGATIVE (NEGATIVE); BARBITURATES URINE NEGATIVE (NEGATIVE); BENZODIAZEPINES URINE NEGATIVE (NEGATIVE); CANNABINOIDS URINE NEGATIVE (NEGATIVE); COCAINE METABOLITE URINE NEGATIVE (NEGATIVE); METHADONE URINE NEGATIVE (NEGATIVE); OPIATES URINE NEGATIVE (NEGATIVE); PHENCYCLIDINE URINE NEGATIVE (NEGATIVE)
[2019-02-23 10:09] VITALS: BP 116/70
== END 2019-02-23 10:11 | disposition home or self-care (01) ==
LOC: M ED 01:41
DX: F10.120 Alcohol abuse with intoxication, uncomplicated (principal); K21.9 Gastro-esophageal reflux disease without esophagitis; F32.9 Major depressive disorder, single episode, unspecified; S50.812A Abrasion of left forearm, initial encounter; X78.9XXA Intentional self-harm by unspecified sharp object, initial encounter; Y92.89 Other specified places as the place of occurrence of the external cause; Z88.1 Allergy status to other antibiotic agents; Z88.5 Allergy status to narcotic agent
CPT/HCPCS: 36415; 80048; 80076; 80307; 84443; 84703; 85027; 90471; 90714; 99284; G0480

== ENCOUNTER → 2019-05-31 | Outpatient (REF) | payer OTHER ==
[~2019-05-31] MED LIST changes: +LAMO25TA4 PO; +LORA-243 PO
[2019-05-31 16:55] LABS: BASO # 0.1 10^3/uL (0.0-0.2); BASO % 1.3 % (0.0-1.0); EOS # 0.3 10^3/uL (0.0-0.5); EOS % 3.5 % (0.0-3.0); HEMATOCRIT 42.4 % (36.0-47.0); HEMOGLOBIN 14.3 g/dl (12.0-15.5); LYMPH % 32.3 % (24.0-44.0); MEAN CORPUSCULAR HEMOGLOBIN 32.4 pg (27.0-33.0); MEAN CORPUSCULAR HGB CONC 33.7 g/dl (32.0-36.5); MEAN CORPUSCULAR VOLUME 95.9 fl (80.0-96.0); MONO # 0.6 10^3/uL (0.0-0.8); MONO % 6.5 % (0.0-5.0); NEUTROPHILS # 5.2 10^3/uL (1.5-8.5); NEUTROPHILS % 56.1 % (36.0-66.0); PLATELET COUNT, AUTOMATED 317 10^3/uL (150-450); RED BLOOD COUNT 4.42 10^6/uL (4.00-5.40); WHITE BLOOD COUNT 9.2 10^3/uL (4.0-10.0)
[2019-05-31 17:01] LABS: ALBUMIN 3.8 GM/DL (3.2-5.2); ALT/SGPT 25 U/L (12-78); BILIRUBIN,TOTAL 0.3 MG/DL (0.2-1.0); BLOOD UREA NITROGEN 5 MG/DL (7-18); CALCIUM LEVEL 9.2 MG/DL (8.5-10.1); CARBON DIOXIDE LEVEL 26 MEQ/L (21-32); CHLORIDE LEVEL 108 MEQ/L (98-107); CREATININE FOR GFR 0.76 MG/DL (0.55-1.30); GLOMERULAR FILTRATION RATE > 60.0 (>58); GLUCOSE, FASTING 78 MG/DL (70-100); SODIUM LEVEL 140 MEQ/L (136-145); TOTAL PROTEIN 7.3 GM/DL (6.4-8.2)
[2019-05-31 17:09] LABS: INR 1.06; PARTIAL THROMBOPLASTIN TIME 30.2 SECONDS (25.0-38.4); PROTHROMBIN TIME 13.5 SECONDS (11.8-14.0)
== END ==
LOC: M SFHCLERA 13:30
PROVIDERS: ATTEND Nurse Practitioner Family
DX: R30.9 Painful micturition, unspecified (principal)

== ENCOUNTER → 2019-05-31 | Outpatient (REF) | payer OTHER ==
[2019-05-31 21:23] LABS: CHLAMYDIA DNA AMPLIFICATION NEGATIVE (NEGATIVE); GC DNA AMPLIFICATION NEGATIVE (NEGATIVE)
== END ==
LOC: M LAB REF 16:07
PROVIDERS: ATTEND Nurse Practitioner Family
DX: R30.9 Painful micturition, unspecified (principal)

== ENCOUNTER → 2019-06-29 | Outpatient (REF) | payer OTHER ==
[~2019-06-29] MED LIST changes: +BACL10TA2 PO; +CLON0.5T2 PO; -CLON0.5T8 PO
== END ==
LOC: M SFHCLERA 14:30
PROVIDERS: ATTEND Nurse Practitioner Family
DX: R50.9 Fever, unspecified (principal)

== ENCOUNTER → 2019-06-29 | Outpatient (CLI) | payer OTHER ==
--- NOTE | 2019-06-29 14:58 | REP ---
Two-view chest: 06/29/2019. Indication: Wheezing. Comparison: 03/13/2017. Findings: The lungs are clear. There is no pleural effusion or pneumothorax. The cardiomediastinal silhouette is unremarkable. Impression: No acute cardiopulmonary process. Electronically Signed by Artis Hdez DO 06/29/2019 02:49 P
== END ==
LOC: M LRY 13:58
PROVIDERS: ATTEND Nurse Practitioner Family
DX: R06.2 Wheezing (principal)

== ENCOUNTER 2019-09-09 20:04 | Emergency (ER) | payer OTHER ==
[~2019-09-09] VITALS: Ht 160 cm; Wt 72.1 kg
[2019-09-09] MEDS ORDERED: SULF1TAB93 (20:13)
[2019-09-09] MEDS ORDERED: METR-265 (20:13)
[2019-09-09] MEDS ORDERED: PRED20TA (20:13)
[2019-09-09 21:10] LABS: BASO # 0.1 10^3/uL (0.0-0.2); EOS # 0.1 10^3/uL (0.0-0.5); EOS % 1.1 % (0.0-3.0); HEMATOCRIT 39.8 % (36.0-47.0); HEMOGLOBIN 13.6 g/dl (12.0-15.5); LYMPH # 1.9 10^3/uL (1.5-5.0); LYMPH % 17.8 % (24.0-44.0); MEAN CORPUSCULAR HEMOGLOBIN 32.6 pg (27.0-33.0); MEAN CORPUSCULAR HGB CONC 34.2 g/dl (32.0-36.5); MEAN CORPUSCULAR VOLUME 95.4 fl (80.0-96.0); MONO # 0.6 10^3/uL (0.0-0.8); MONO % 5.6 % (0.0-5.0); NEUTROPHILS # 7.8 10^3/uL (1.5-8.5); NEUTROPHILS % 74.2 % (36.0-66.0); PLATELET COUNT, AUTOMATED 299 10^3/uL (150-450); RED BLOOD COUNT 4.17 10^6/uL (4.00-5.40); WHITE BLOOD COUNT 10.5 10^3/uL (4.0-10.0)
[2019-09-09] MEDS ORDERED: KETOROLAC 30 MG/ML VIAL (J1885) IV ONE (21:30)
[2019-09-09] MEDS ORDERED: NS 1,000 ML IV ONE (21:30)
[2019-09-09] MEDS ORDERED: metroNIDAZOLE 500 MG in IV 1 EA IV ONE (21:30)
[2019-09-09] MEDS ORDERED: CIPROFLOXACIN 400 MG in IV 1 EA IV ONE (21:30)
[2019-09-09 21:38] LABS: ALBUMIN 3.3 GM/DL (3.2-5.2); ALT/SGPT 29 U/L (12-78); BILIRUBIN,DIRECT < 0.1 MG/DL (0.0-0.2); BILIRUBIN,TOTAL 0.2 MG/DL (0.2-1.0); LIPASE 76 U/L (73-393); TOTAL PROTEIN 6.3 GM/DL (6.4-8.2)
[2019-09-09] MEDS ORDERED: ISOVUE-370 76% 100ML VIAL (Q9967) As Ordered ONE (21:40)
[2019-09-09] MEDS: cefTRIAXone SOD 2 GM in D5W MINI-BAG PLUS 50 ML IV ONE ×2 (21:45→23:25)
[2019-09-09 21:49] LABS: URINE PREG TEST NEGATIVE (NEGATIVE)
--- NOTE | 2019-09-09 22:29 | REPVR ---
PROCEDURE INFORMATION: Exam: CT Abdomen And Pelvis With Contrast Exam date and time: 09/09/2019 9:53 PM Age: 44 years old Clinical indication: Abdominal pain; Generalized; Additional info: R/O diverticulitis TECHNIQUE: Imaging protocol: Computed tomography of the abdomen and pelvis with intravenous contrast. Radiation optimization: All CT scans at this facility use at least one of these dose optimization techniques: automated exposure control; mA and/or kV adjustment per patient size (includes targeted exams where dose is matched to clinical indication); or iterative reconstruction. Contrast material: ISOVUE 370; Contrast volume: 100 ml; Contrast route: IV; COMPARISON: CT ABD/PEL W/IV CONTRAST ONLY 09/02/2017 9:29 PM FINDINGS: Liver: There is a diffuse decrease in hepatic parenchymal density, consistent with steatosis. Gallbladder and bile ducts: Normal. No calcified stones. No ductal dilation. Pancreas: Normal. No ductal dilation. Spleen: Normal. No splenomegaly. Adrenals: Normal. No mass. Kidneys and ureters: Normal. No hydronephrosis. Stomach and bowel: Unremarkable. No obstruction. No mucosal thickening. Appendix: No evidence of appendicitis. Intraperitoneal space: There is a short segment of minimal inflammation in the distal left colon and adjacent pericolonic fat without evidence of a drainable abscess or free air, consistent with mild acute or subacute diverticulitis (see series 201, image 83). Vasculature: Unremarkable. No abdominal aortic aneurysm. Lymph nodes: Unremarkable. No enlarged lymph nodes. Bladder: Unremarkable as visualized. Reproductive: Unremarkable as visualized. Bones/joints: Unremarkable. No acute fracture. Soft tissues: Unremarkable. IMPRESSION: 1. There is a diffuse decrease in hepatic parenchymal density, consistent with steatosis. 2. There is a short segment of minimal inflammation in the distal left colon and adjacent pericolonic fat without evidence of a drainable abscess or free air, consistent with mild acute or subacute diverticulitis. Electronically signed by: Shahab Canales On 09/09/2019 22:29:39 PM
[2019-09-09] MEDS ORDERED: fentaNYL 100 MCG/2 ML INJECTION (J3010) IV ONE (22:30)
[2019-09-09] MEDS ORDERED: OXYCODONE/APAP 5MG/325MG(BULK FOR ED) 1 TABLET PO ONE (23:45)
[2019-09-09 23:55] VITALS: BP 110/65
== END 2019-09-10 00:08 | disposition home or self-care (01) ==
LOC: M ED 20:04
DX: K57.30 Diverticulosis of large intestine without perforation or abscess without bleeding (principal); K21.9 Gastro-esophageal reflux disease without esophagitis; K51.90 Ulcerative colitis, unspecified, without complications; J45.909 Unspecified asthma, uncomplicated; F17.200 Nicotine dependence, unspecified, uncomplicated; F31.9 Bipolar disorder, unspecified; I10 Essential (primary) hypertension; Z79.899 Other long term (current) drug therapy; Z88.6 Allergy status to analgesic agent; Z88.8 Allergy status to other drugs, medicaments and biological substances
CPT/HCPCS: 74177; 80047; 80076; 81001; 83690; 84703; 85025; 87086; 96361; 96365; 96367; 96374; 96375; 99284; J0696; J1885; J3010; Q9967

== ENCOUNTER 2019-10-07 12:21 | Emergency (ER) | payer OTHER ==
[~2019-10-07] VITALS: Ht 160 cm; Wt 72.5 kg
[~2019-10-07 12:21] MED LIST changes: +METR-265; +PRED20TA; +SULF1TAB93
[2019-10-07] MEDS ORDERED: NAPR-837 PO (15:09)
--- NOTE | 2019-10-07 15:29 | REP ---
Pelvic sonography: History: Irregular bleeding. Pelvic pain. Comparison sonography May 17, 2017 Findings: Transabdominal and transvaginal scanning are performed. Uterine dimensions are 10.9 x 4.7 x 6.7 cm. Uterus is considered slightly enlarged. Endometrial echo 0.6 cm in thickness. Myometrium is heterogeneous. There is a 1.6 cm fibroid adjacent to a scar in the lower uterine segment. Nabothian cysts are seen in the cervix measuring up to 1.2 cm. Visualized bladder [place]in[place] are smooth. No free fluid is seen. Right ovarian dimensions are 5.0 x 2.6 x 3.5 cm. The right ovary contains a septated cyst lesion measuring 4.4 x 2.4 x 3.4 cm. Left ovarian dimensions are 2.8 x 1.8 x 2.3 cm. The left ovary is normal in appearance. Doppler flow is present in both ovaries, resistive indices 0.44 on the right and 0.46 on the left. Impression: Mildly enlarged fibroid uterus. Small fibroid near the scar. A 4.4 cm septated cystic lesion right ovary. No free fluid. Electronically Signed by Naveed Olguin MD 10/07/2019 05:43 P
[2019-10-07 16:16] VITALS: BP 127/93
--- NOTE | 2019-10-10 07:36 | ED PDOC ---
Post-Departure Follow-Up dr machuca faxed formalrpeort of pelvic us for fu Jan Varghese MD Oct 10, 2019 07:36
== END 2019-10-07 16:19 | disposition home or self-care (01) ==
LOC: M ED 12:21
DX: N93.8 Other specified abnormal uterine and vaginal bleeding (principal); N83.201 Unspecified ovarian cyst, right side; I10 Essential (primary) hypertension; F32.9 Major depressive disorder, single episode, unspecified; K57.32 Diverticulitis of large intestine without perforation or abscess without bleeding; Z87.42 Personal history of other diseases of the female genital tract; F17.200 Nicotine dependence, unspecified, uncomplicated; Z88.1 Allergy status to other antibiotic agents; Z88.5 Allergy status to narcotic agent; Z79.899 Other long term (current) drug therapy

== ENCOUNTER → 2020-01-19 | Outpatient (REF) | payer OTHER ==
[~2020-01-19] MED LIST changes: +NAPR-837 PO
== END ==
LOC: M SFHCLERA 14:14
PROVIDERS: ATTEND Nurse Practitioner Family
DX: R06.2 Wheezing (principal)

== ENCOUNTER → 2020-01-19 | Outpatient (CLI) | payer OTHER ==
--- NOTE | 2020-01-19 22:50 | REP ---
CHEST, TWO VIEWS: There is no evidence of acute infiltrate. No pleural effusion is seen. The heart is normal in size. The mediastinal silhouette is unremarkable. The visualized osseous structures are intact. IMPRESSION: No acute pulmonary disease. Electronically Signed by Herbie Mancilla MD 01/22/2020 10:35 P
== END ==
LOC: M LRY 13:27
PROVIDERS: ATTEND Nurse Practitioner Family
DX: R06.2 Wheezing (principal)

== ENCOUNTER → 2020-03-12 | Outpatient (REF) | payer OTHER | LOC: M SFHCLERA 13:40 | PROVIDERS: ATTEND Nurse Practitioner Family | DX: N89.8 Other specified noninflammatory disorders of vagina (principal) ==

== ENCOUNTER 2020-07-19 09:44 | Emergency (ER) | payer OTHER ==
[~2020-07-19] VITALS: Ht 160 cm; Wt 68.2 kg
--- NOTE | 2020-07-19 10:30 | REP ---
INDICATION: trauma COMPARISON: None. TECHNIQUE: AP, lateral, bilateral oblique views. FINDINGS: No acute fracture or dislocation. Skeletal structures and joint spaces are intact and normal. Ankle mortise appears stable. No subcutaneous emphysema or radiodense foreign body. IMPRESSION: Normal right ankle radiograph series. <Electronically signed by Willem Deng > 07/19/20 1025
--- NOTE | 2020-07-19 10:32 | REP ---
INDICATION: trauma COMPARISON: None. TECHNIQUE: AP, lateral, bilateral oblique views right foot. FINDINGS: The osseous structures and joint spaces are intact and normal. There is no evidence for acute fracture or dislocation. Surrounding soft tissues are unremarkable. No subcutaneous emphysema or radiodense foreign body. Incidental small calcaneal heel spur noted. IMPRESSION: . No acute fracture or dislocation. <Electronically signed by Willem Deng > 07/19/20 1022
[2020-07-19 12:27] VITALS: BP 115/74
== END 2020-07-19 12:40 | disposition home or self-care (01) ==
LOC: M ED 09:44
DX: S93.401A Sprain of unspecified ligament of right ankle, initial encounter (principal); W10.8XXA Fall (on) (from) other stairs and steps, initial encounter; Y92.098 Other place in other non-institutional residence as the place of occurrence of the external cause; Y93.01 Activity, walking, marching and hiking; Y99.8 Other external cause status; I10 Essential (primary) hypertension; G43.909 Migraine, unspecified, not intractable, without status migrainosus; F41.9 Anxiety disorder, unspecified; F32.9 Major depressive disorder, single episode, unspecified; K58.9 Irritable bowel syndrome, unspecified; F17.200 Nicotine dependence, unspecified, uncomplicated; Z88.5 Allergy status to narcotic agent; Z88.1 Allergy status to other antibiotic agents; Z79.899 Other long term (current) drug therapy

== ENCOUNTER 2020-08-18 20:27 | Emergency (ER) | payer OTHER ==
[~2020-08-18] VITALS: Ht 160 cm; Wt 65.9 kg
[~2020-08-18 20:27] MED LIST changes: -BUPR150T3; +BUPR150T4; +GABA-282 PO; -GABA-843 PO
[2020-08-18] MEDS ORDERED: NS 1,000 ML IV SCH (20:44)
[2020-08-18] MEDS ORDERED: PANTOPRAZOLE 40MG VIAL (C9113 PER 1) IV ONE (20:45)
[2020-08-18] MEDS ORDERED: ONDANSETRON 4MG/2ML VIAL IV ONE (20:45)
[2020-08-18] MEDS ORDERED: NORV5TAB PO (20:48)
[2020-08-18 21:21] LABS: BASO # 0.1 10^3/uL (0.0-0.2); BASO % 1.1 % (0.0-1.0); EOS # 0.5 10^3/uL (0.0-0.5); EOS % 5.1 % (0.0-3.0); HEMATOCRIT 40.5 % (36.0-47.0); HEMOGLOBIN 13.7 g/dl (12.0-15.5); LYMPH # 3.4 10^3/uL (1.5-5.0); LYMPH % 32.2 % (24.0-44.0); MEAN CORPUSCULAR HEMOGLOBIN 31.9 pg (27.0-33.0); MEAN CORPUSCULAR HGB CONC 33.8 g/dl (32.0-36.5); MEAN CORPUSCULAR VOLUME 94.4 fl (80.0-96.0); MONO # 0.7 10^3/uL (0.0-0.8); MONO % 6.7 % (0.0-5.0); NEUTROPHILS # 5.7 10^3/uL (1.5-8.5); NEUTROPHILS % 54.6 % (36.0-66.0); PLATELET COUNT, AUTOMATED 292 10^3/uL (150-450); RED BLOOD COUNT 4.29 10^6/uL (4.00-5.40); WHITE BLOOD COUNT 10.4 10^3/uL (4.0-10.0)
--- NOTE | 2020-08-18 21:22 | REPVR ---
PROCEDURE INFORMATION: Exam: CT Abdomen And Pelvis Without Contrast Exam date and time: 08/18/2020 8:59 PM Age: 45 years old Clinical indication: Abdominal pain; Generalized; Additional info: R/O renal calc vs divertic TECHNIQUE: Imaging protocol: Computed tomography of the abdomen and pelvis without contrast. Radiation optimization: All CT scans at this facility use at least one of these dose optimization techniques: automated exposure control; mA and/or kV adjustment per patient size (includes targeted exams where dose is matched to clinical indication); or iterative reconstruction. COMPARISON: CT ABD/PEL W/IV CONTRAST ONLY 09/09/2019 9:50 PM FINDINGS: Liver: Normal. No mass. Gallbladder and bile ducts: The gallbladder is somewhat contracted with no stones. Pancreas: Normal. No ductal dilation. Spleen: Normal. No splenomegaly. Adrenal glands: Normal. No mass. Kidneys and ureters: Normal. No hydronephrosis. Stomach and bowel: There is colonic diverticulosis with pericolonic induration along the posterior aspect of the distal descending colon and is centered around a diverticulum which projects posteriorly consistent with diverticulitis of a specific culprit diverticulum. Appendix: There are no changes of appendicitis. A normal appendix is not seen. Intraperitoneal space: Unremarkable. No free air. No significant fluid collection. Vasculature: Unremarkable. No abdominal aortic aneurysm. Lymph nodes: Unremarkable. No enlarged lymph nodes. Urinary bladder: Unremarkable as visualized. Reproductive: Right ovarian cyst measuring 4.1 x 3.3 x 3.4 cm. Bones/joints: Unremarkable. No acute fracture. Soft tissues: Unremarkable. IMPRESSION: 1. Colonic diverticulosis with mild diverticulitis of a specific culprit diverticulum which projects posteriorly in the distal descending colon and is new since 09/09/2019. 2. Right ovarian cyst measuring 4.1 x 3.3 x 3.4 cm. Electronically signed by: Murali Moreno On 08/18/2020 21:22:29 PM
[2020-08-18] MEDS ORDERED: KETOROLAC 30 MG/ML 1ML VIAL IV ONE (21:30)
[2020-08-18 21:34] LABS: INR 0.81; PROTHROMBIN TIME 11.4 SECONDS (12.5-14.3)
[2020-08-18 21:48] LABS: ALBUMIN 3.4 GM/DL (3.2-5.2); ALT/SGPT 27 U/L (12-78); BILIRUBIN,DIRECT < 0.1 MG/DL (0.0-0.2); BILIRUBIN,TOTAL < 0.1 MG/DL (0.2-1.0); BLOOD UREA NITROGEN 7 MG/DL (7-18); CARBON DIOXIDE LEVEL 25 MEQ/L (21-32); CHLORIDE LEVEL 107 MEQ/L (98-107); CREATININE FOR GFR 0.65 MG/DL (0.55-1.30); GLOMERULAR FILTRATION RATE > 60.0 (>58); GLUCOSE, FASTING 93 MG/DL (70-100); LIPASE 48 U/L (73-393); POTASSIUM SERUM 3.9 MEQ/L (3.5-5.1); SODIUM LEVEL 140 MEQ/L (136-145); TOTAL PROTEIN 6.8 GM/DL (6.4-8.2)
[2020-08-18] MEDS ORDERED: metroNIDAZOLE (FLAGYL) 500MG TABLET PO ONE (22:00)
[2020-08-18] MEDS ORDERED: CIPROFLOXACIN 500MG TABLET PO ONE (22:00)
[2020-08-18] MEDS ORDERED: OXYCODONE/APAP 5MG/325MG(BULK FOR ED) 1 TABLET PO ONE (22:00)
[2020-08-18] MEDS ORDERED: FLAG500T PO (22:04)
[2020-08-18] MEDS ORDERED: CIPR-249 PO (22:04)
[2020-08-18] MEDS ORDERED: ZOFR4TAB16 PO (22:04)
[2020-08-18] MEDS ORDERED: PERC5TAB12 PO (22:06)
[2020-08-18] MEDS ORDERED: CEPH500C PO (22:12)
[2020-08-18 22:15] VITALS: BP 124/76
[2020-08-18] MEDS ORDERED: CEPHALEXIN 500 MG CAP PO ONE (22:15)
== END 2020-08-18 22:40 | disposition home or self-care (01) ==
LOC: M ED 20:27
DX: K57.32 Diverticulitis of large intestine without perforation or abscess without bleeding (principal); N83.291 Other ovarian cyst, right side; U07.1 COVID-19; I10 Essential (primary) hypertension; G43.909 Migraine, unspecified, not intractable, without status migrainosus; K21.9 Gastro-esophageal reflux disease without esophagitis; Z79.899 Other long term (current) drug therapy; Z88.1 Allergy status to other antibiotic agents; Z88.5 Allergy status to narcotic agent
CPT/HCPCS: 74176; 80048; 80076; 81001; 83690; 85025; 85610; 96361; 96374; 96375; 99284; C9113; J1885; J2405

== ENCOUNTER 2020-09-10 23:23 | Emergency (ER) | payer OTHER ==
[~2020-09-10 23:23] MED LIST changes: +BUPR150T12; -BUPR150T4; +CEPH500C PO; +CIPR-249 PO; +NORV5TAB PO; +ZOFR4TAB16 PO
[2020-09-10] MEDS ORDERED: NS 1,000 ML IV ONE (23:55)
[2020-09-11 01:06] LABS: BASO # 0.1 10^3/uL (0.0-0.2); BASO % 1.1 % (0.0-1.0); EOS # 0.2 10^3/uL (0.0-0.5); HEMATOCRIT 38.9 % (36.0-47.0); HEMOGLOBIN 12.8 g/dl (12.0-15.5); LYMPH % 21.1 % (24.0-44.0); MEAN CORPUSCULAR HEMOGLOBIN 31.8 pg (27.0-33.0); MEAN CORPUSCULAR HGB CONC 32.9 g/dl (32.0-36.5); MEAN CORPUSCULAR VOLUME 96.8 fl (80.0-96.0); MONO # 0.7 10^3/uL (0.0-0.8); NEUTROPHILS # 6.6 10^3/uL (1.5-8.5); NEUTROPHILS % 68.5 % (36.0-66.0); PLATELET COUNT, AUTOMATED 267 10^3/uL (150-450); RED BLOOD COUNT 4.02 10^6/uL (4.00-5.40); WHITE BLOOD COUNT 9.6 10^3/uL (4.0-10.0)
[2020-09-11 01:16] LABS: INR 0.99; PROTHROMBIN TIME 13.3 SECONDS (12.5-14.3)
[2020-09-11 01:17] LABS: PARTIAL THROMBOPLASTIN TIME 27.9 SECONDS (24.2-38.5)
[2020-09-11 01:25] LABS: ERYTHROCYTE SEDIMENTATION RATE 13 mm/hr (0-20)
[2020-09-11 01:34] LABS: ALBUMIN 3.4 GM/DL (3.2-5.2); ALT/SGPT 34 U/L (12-78); BILIRUBIN,DIRECT < 0.1 MG/DL (0.0-0.2); BLOOD UREA NITROGEN 8 MG/DL (7-18); C REACTIVE PROTEIN QUANTITATIV 0.34 MG/DL (0.00-0.30); CALCIUM LEVEL 8.7 MG/DL (8.5-10.1); CARBON DIOXIDE LEVEL 24 MEQ/L (21-32); CHLORIDE LEVEL 110 MEQ/L (98-107); CK-MB VALUE MASS < 1.0 NG/ML (<3.6); CPK CREATINE PHOSPHOKINASE 61 U/L (26-192); CREATININE FOR GFR 0.65 MG/DL (0.55-1.30); FERRITIN 28 NG/ML (8-252); GLOMERULAR FILTRATION RATE > 60.0 (>58); GLUCOSE, FASTING 96 MG/DL (70-100); LDH LACTATE DEHYDROGENASE 199 U/L (84-246); LIPASE 76 U/L (73-393); MB/CK RELATIVE INDEX 1.64 (< OR =4); POTASSIUM SERUM 4.2 MEQ/L (3.5-5.1); SODIUM LEVEL 139 MEQ/L (136-145); TOTAL PROTEIN 6.7 GM/DL (6.4-8.2); TROPONIN I < 0.02 NG/ML (< 0.10)
[2020-09-11] MEDS ORDERED: ISOVUE-370 76% 100ML VIAL As Ordered ONE (01:55)
[2020-09-11 01:59] LABS: BILIRUBIN,TOTAL < 0.1 MG/DL (0.2-1.0)
[2020-09-11 02:15] LABS: HCG, SERUM QUALITATIVE NEGATIVE (NEGATIVE)
[2020-09-11 03:45] VITALS: BP 110/74
--- NOTE | 2020-09-11 04:00 | REPVR ---
PROCEDURE INFORMATION: Exam: CT Head Without Contrast Exam date and time: 09/11/2020 1:44 AM Age: 45 years old Clinical indication: Pain; Headache not specified; Additional info: Malaise/ headache TECHNIQUE: Imaging protocol: Computed tomography of the head without contrast. Radiation optimization: All CT scans at this facility use at least one of these dose optimization techniques: automated exposure control; mA and/or kV adjustment per patient size (includes targeted exams where dose is matched to clinical indication); or iterative reconstruction. COMPARISON: CT Head without contrast 10/20/2016 2:56 PM FINDINGS: Brain: Normal. No hemorrhage. Unremarkable white matter. No mass effect. Cerebral ventricles: No ventriculomegaly. Bones/joints: Unremarkable. No acute fracture. Paranasal sinuses: Minimal ethmoid sinus mucosal thickening. Mastoid air cells: Visualized mastoid air cells are well aerated. Soft tissues: Unremarkable. IMPRESSION: 1. Minimal ethmoid sinus disease with decreased sphenoid sinus disease since 10/20/2016. 2. Otherwise negative noncontrast head CT. No acute interval intracranial process is identified. Electronically signed by: Murali Moreno On 09/11/2020 04:00:43 AM
--- NOTE | 2020-09-11 04:10 | REPVR ---
PROCEDURE INFORMATION: Exam: CT Angiography Chest With Contrast Exam date and time: 09/11/2020 1:44 AM Age: 45 years old Clinical indication: Dyspnea; Additional info: Post covid/ dyspnea TECHNIQUE: Imaging protocol: Computed tomographic angiography of the chest with contrast. 3D rendering (Not supervised by radiologist): MIP and/or 3D reconstructed images were created by the technologist. Radiation optimization: All CT scans at this facility use at least one of these dose optimization techniques: automated exposure control; mA and/or kV adjustment per patient size (includes targeted exams where dose is matched to clinical indication); or iterative reconstruction. Contrast material: ISO; Contrast volume: 100 ml; Contrast route: INTRAVENOUS (IV); COMPARISON: No relevant prior studies available. FINDINGS: Pulmonary arteries: No visualized pulmonary embolus for the level of images acquired. Partial motion degradation. Aorta: Unremarkable. No aortic aneurysm. No aortic dissection. Lungs: Areas of pleuroparenchymal scarring lower lungs greater on the right. Minor pleuroparenchymal scarring right middle lobe and lingula. Pleural spaces: Unremarkable. No pneumothorax. No pleural effusion. Heart: Normal right to left ventricular ratio. Lymph nodes: Scattered small mediastinal lymph nodes. Right hilar lymph node measuring 1.4 cm. Bones/joints: Unremarkable. No acute fracture. Soft tissues: Unremarkable. IMPRESSION: 1. No visualized pulmonary embolus for the level of images acquired. Prominent motion degradation. 2. Minor areas of pleuroparenchymal scarring. 3. Minor mediastinal and right hilar adenopathy probably reactive. Electronically signed by: Esthela West On 09/11/2020 04:10:32 AM
--- NOTE | 2020-09-11 04:22 | REPVR ---
PROCEDURE INFORMATION: Exam: CT Abdomen And Pelvis With Contrast Exam date and time: 09/11/2020 1:44 AM Age: 45 years old Clinical indication: Nausea and vomiting and other: Diarrhea<weakness, malaise; Additional info: Diarrhea, post diverticulitis TECHNIQUE: Imaging protocol: Computed tomography of the abdomen and pelvis with contrast. Radiation optimization: All CT scans at this facility use at least one of these dose optimization techniques: automated exposure control; mA and/or kV adjustment per patient size (includes targeted exams where dose is matched to clinical indication); or iterative reconstruction. Contrast material: ISO; Contrast volume: 100 ml; Contrast route: INTRAVENOUS (IV); COMPARISON: CT ABD PELVIS W/O CONTRAST 08/18/2020 8:52 PM FINDINGS: Liver: 0.4 cm hypodensity right hepatic lobe. Gallbladder and bile ducts: The gallbladder is similar in size compared to previous CT with mild nonspecific enhancement of the wall. No definite pericholecystic fluid or stranding. Pancreas: Normal. No ductal dilation. Spleen: Normal. No splenomegaly. Adrenal glands: Normal. No mass. Kidneys and ureters: Normal. No hydronephrosis. Stomach and bowel: Distal colonic diverticulosis. Mild residual stranding surrounding the distal descending colon and junction of proximal sigmoid colon. Appendix: No evidence of appendicitis. The appendix is not visualized. Intraperitoneal space: Mild fluid-filled small bowel with slight accentuation of the wall of confluent jejunal segments left upper quadrant. Vasculature: Unremarkable. No abdominal aortic aneurysm. Lymph nodes: Unremarkable. No enlarged lymph nodes. Urinary bladder: Unremarkable as visualized. Reproductive: Interval reduction or resolution of right ovarian cyst. Bones/joints: Unremarkable. No acute fracture. Soft tissues: Unremarkable. IMPRESSION: 1. Minor residual changes of distal descending colonic diverticulitis are diminished compared to the prior CT of 08/18/2020. 2. Mildly accentuated fluid-filled confluent jejunal segments which could reflect enteritis or minor focal reactive ileus. 3. Similar size of the gallbladder compared to previous with mild wall enhancement without pericholecystic fluid or stranding. This could reflect normal enhancement appearance although is borderline for wall diameter. Correlate with ultrasound for any cholecystitis symptoms. 4. Subcentimeter hypodensity right hepatic lobe probably benign.In a low-risk patient, this lesion is most likely to be benign and no further follow-up is recommended. In a high-risk patient, recommend follow-up MRI in 3-6 months (or earlier if warranted by the patients specific clinical circumstances). Electronically signed by: Esthela West On 09/11/2020 04:23:04 AM
--- NOTE | 2020-09-11 13:01 | ED PDOC ---
Post-Departure Follow-Up ct abd/p faxed to [facility] for fu Jan Varghese MD Sep 11, 2020 13:01
--- NOTE | 2020-09-12 14:15 | ECGEPIP ---
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
== END 2020-09-11 05:39 | disposition home or self-care (01) ==
LOC: M ED 23:23
DX: G93.3 Postviral and related fatigue syndromes (principal); K21.9 Gastro-esophageal reflux disease without esophagitis; I10 Essential (primary) hypertension; Z88.6 Allergy status to analgesic agent; Z88.1 Allergy status to other antibiotic agents
CPT/HCPCS: 70450; 71275; 74177; 80048; 80076; 82550; 82553; 82728; 83605; 83615; 83690; 84703; 85025; 85610; 85652; 85730; 86140; 87040; 93005; 93041; 96360; 96361; 99285; Q9967

== ENCOUNTER 2020-09-21 18:48 | Emergency (ER) | payer OTHER ==
[~2020-09-21] VITALS: Ht 160 cm; Wt 67.2 kg
[2020-09-21 19:49] LABS: BASO # 0.2 10^3/uL (0.0-0.2); BASO % 2.1 % (0.0-1.0); EOS # 0.6 10^3/uL (0.0-0.5); EOS % 7.9 % (0.0-3.0); HEMOGLOBIN 14.3 g/dl (12.0-15.5); LYMPH # 2.7 10^3/uL (1.5-5.0); LYMPH % 33.5 % (24.0-44.0); MEAN CORPUSCULAR HEMOGLOBIN 32.4 pg (27.0-33.0); MEAN CORPUSCULAR HGB CONC 34.9 g/dl (32.0-36.5); MONO # 0.6 10^3/uL (0.0-0.8); MONO % 7.8 % (2.0-8.0); NEUTROPHILS # 3.9 10^3/uL (1.5-8.5); NEUTROPHILS % 48.3 % (36.0-66.0); PLATELET COUNT, AUTOMATED 359 10^3/uL (150-450); RED BLOOD COUNT 4.41 10^6/uL (4.00-5.40); WHITE BLOOD COUNT 8.1 10^3/uL (4.0-10.0)
[2020-09-21 20:19] LABS: ALBUMIN 3.6 GM/DL (3.2-5.2); ALT/SGPT 21 U/L (12-78); BILIRUBIN,DIRECT < 0.1 MG/DL (0.0-0.2); BILIRUBIN,TOTAL < 0.1 MG/DL (0.2-1.0); LIPASE 82 U/L (73-393); TOTAL PROTEIN 7.1 GM/DL (6.4-8.2)
[2020-09-21] MEDS ORDERED: ONDANSETRON 4MG/2ML VIAL IV ONE (20:30)
[2020-09-21] MEDS ORDERED: NS 1,000 ML IV ONE (20:30)
[2020-09-21] MEDS ORDERED: ISOVUE-370 76% 100ML VIAL As Ordered ONE (20:32)
[2020-09-21] MEDS: fentaNYL 100 MCG/2 ML INJECTION (J3010) IV ONE ×2 (20:51→21:10)
--- NOTE | 2020-09-21 21:37 | REPVR ---
PROCEDURE INFORMATION: Exam: CT Abdomen And Pelvis With Contrast Exam date and time: 09/21/2020 8:42 PM Age: 45 years old Clinical indication: Abdominal pain; Localized; Lower; Additional info: Lower abd pain, diarrhea, HX divertic TECHNIQUE: Imaging protocol: Computed tomography of the abdomen and pelvis with contrast. Radiation optimization: All CT scans at this facility use at least one of these dose optimization techniques: automated exposure control; mA and/or kV adjustment per patient size (includes targeted exams where dose is matched to clinical indication); or iterative reconstruction. Contrast material: ISOVUE 370; Contrast volume: 100 ml; Contrast route: INTRAVENOUS (IV); COMPARISON: CT ABD/PEL W/IV CONTRAST ONLY 09/11/2020 3:18 AM FINDINGS: Liver: Normal. No mass. Gallbladder and bile ducts: Normal. No calcified stones. No ductal dilation. Pancreas: Normal. No ductal dilation. Spleen: Normal. No splenomegaly. Adrenal glands: Normal. No mass. Kidneys and ureters: Normal. No hydronephrosis. Stomach and bowel: Minimal pericolonic induration along the distal descending colon (series 201, image 92) and (series 201, image 75 closed) representing acute diverticulitis. Appendix: No evidence of appendicitis. Intraperitoneal space: Unremarkable. No free air. No significant fluid collection. Vasculature: Unremarkable. No abdominal aortic aneurysm. Lymph nodes: Unremarkable. No enlarged lymph nodes. Urinary bladder: Unremarkable as visualized. Reproductive: Unremarkable as visualized. Bones/joints: Unremarkable. No acute fracture. Soft tissues: Unremarkable. IMPRESSION: Recurrent/residual acute diverticulitis of the descending colon. No fluid collections/abscess. Electronically signed by: Jim Brown On 09/21/2020 21:37:58 PM
[2020-09-21] MEDS ORDERED: OXYCODONE/APAP 5MG/325MG(BULK FOR ED) 1 TABLET PO ONE (22:10)
[2020-09-21] MEDS ORDERED: AUGMENTIN 875 MG TAB PO ONE (22:10)
[2020-09-21] MEDS ORDERED: AUGM875T28 PO (22:10)
[2020-09-21] MEDS ORDERED: metroNIDAZOLE (FLAGYL) 500MG TABLET PO ONE (22:10)
[2020-09-21] MEDS ORDERED: FLAG500T PO (22:10)
[2020-09-21 22:18] VITALS: BP 124/73
== END 2020-09-21 22:37 | disposition home or self-care (01) ==
LOC: M ED 18:48
DX: K57.32 Diverticulitis of large intestine without perforation or abscess without bleeding (principal); K58.9 Irritable bowel syndrome, unspecified; I10 Essential (primary) hypertension; Z87.440 Personal history of urinary (tract) infections; J45.909 Unspecified asthma, uncomplicated; F31.9 Bipolar disorder, unspecified; R51.9 Headache, unspecified; F17.200 Nicotine dependence, unspecified, uncomplicated; Z88.1 Allergy status to other antibiotic agents; Z88.5 Allergy status to narcotic agent; Z79.899 Other long term (current) drug therapy; Z79.1 Long term (current) use of non-steroidal anti-inflammatories (NSAID)
CPT/HCPCS: 74177; 80047; 80076; 81001; 83605; 83690; 85025; 96361; 96374; 96375; 99284; J2405; J3010; Q9967

== ENCOUNTER 2020-10-26 02:44 | Emergency (ER) | payer OTHER ==
[~2020-10-26] VITALS: Ht 160 cm; Wt 68.4 kg
[2020-10-26] MEDS ORDERED: NS 1,000 ML IV ONE (03:35)
[2020-10-26] MEDS ORDERED: fentaNYL 100 MCG/2 ML INJECTION (J3010) IV ONE ×2 (03:35→04:50)
[2020-10-26 03:49] VITALS: BP 142/94
[2020-10-26 03:55] LABS: BASO # 0.2 10^3/uL (0.0-0.2); BASO % 1.9 % (0.0-1.0); EOS # 0.6 10^3/uL (0.0-0.5); EOS % 6.7 % (0.0-3.0); HEMATOCRIT 41.6 % (36.0-47.0); HEMOGLOBIN 13.9 g/dl (12.0-15.5); LYMPH # 3.8 10^3/uL (1.5-5.0); MEAN CORPUSCULAR HEMOGLOBIN 32.8 pg (27.0-33.0); MEAN CORPUSCULAR HGB CONC 33.4 g/dl (32.0-36.5); MEAN CORPUSCULAR VOLUME 98.1 fl (80.0-96.0); MONO # 0.6 10^3/uL (0.0-0.8); MONO % 7.3 % (2.0-8.0); NEUTROPHILS # 3.3 10^3/uL (1.5-8.5); NEUTROPHILS % 38.7 % (36.0-66.0); PLATELET COUNT, AUTOMATED 283 10^3/uL (150-450); RED BLOOD COUNT 4.24 10^6/uL (4.00-5.40); WHITE BLOOD COUNT 8.5 10^3/uL (4.0-10.0)
[2020-10-26] MEDS ORDERED: ONDANSETRON 4MG/2ML VIAL IV ONE (03:55)
[2020-10-26 04:26] LABS: ALBUMIN 3.4 GM/DL (3.2-5.2); ALT/SGPT 26 U/L (12-78); BILIRUBIN,DIRECT < 0.1 MG/DL (0.0-0.2); BILIRUBIN,TOTAL 0.2 MG/DL (0.2-1.0); BLOOD UREA NITROGEN 9 MG/DL (7-18); CALCIUM LEVEL 8.3 MG/DL (8.5-10.1); CARBON DIOXIDE LEVEL 28 MEQ/L (21-32); CHLORIDE LEVEL 108 MEQ/L (98-107); CREATININE FOR GFR 0.58 MG/DL (0.55-1.30); GLOMERULAR FILTRATION RATE > 60.0 (>58); GLUCOSE, FASTING 83 MG/DL (70-100); LIPASE 66 U/L (73-393); POTASSIUM SERUM 4.2 MEQ/L (3.5-5.1); SODIUM LEVEL 139 MEQ/L (136-145); TOTAL PROTEIN 6.7 GM/DL (6.4-8.2)
[2020-10-26 04:44] LABS: HCG, SERUM QUALITATIVE NEGATIVE (NEGATIVE)
[2020-10-26] MEDS: GASTROGRAFIN SOLUTION 30ML PO SCH ×2 (04:49→05:19)
[2020-10-26] MEDS ORDERED: ISOVUE-370 76% 100ML VIAL As Ordered ONE (05:20)
--- NOTE | 2020-10-26 06:12 | REPVR ---
PROCEDURE INFORMATION: Exam: CT Abdomen And Pelvis With Contrast Exam date and time: 10/26/2020 3:32 AM Age: 45 years old Clinical indication: Abdominal pain; Localized; Left lower quadrant (llq); Additional info: Llq pain TECHNIQUE: Imaging protocol: Computed tomography of the abdomen and pelvis with contrast. Radiation optimization: All CT scans at this facility use at least one of these dose optimization techniques: automated exposure control; mA and/or kV adjustment per patient size (includes targeted exams where dose is matched to clinical indication); or iterative reconstruction. Contrast material: ISO; Contrast volume: 100 ml; Contrast route: INTRAVENOUS (IV); Other contrast: Oral, ggraphin, 600; COMPARISON: CT ABD/PEL W/IV CONTRAST ONLY 09/21/2020 8:39 PM FINDINGS: Lungs: Mild dependent atelectasis at the bilateral lung bases. Liver: Hepatomegaly. Gallbladder and bile ducts: Normal. No calcified stones. No ductal dilation. Pancreas: Normal. No ductal dilation. Spleen: Normal. No splenomegaly. Adrenal glands: Normal. No mass. Kidneys and ureters: Mild left renal cortical scarring. Stomach and bowel: Diverticulosis of the colon. No evidence of acute diverticulitis. Mild bowel wall thickening involving distal descending and proximal sigmoid colon in the left lower quadrant probably reflect sequela of chronic diverticular disease or possibly short segment colitis. Appendix: No evidence of appendicitis. Intraperitoneal space: Unremarkable. No free air. No significant fluid collection. Vasculature: Unremarkable. No abdominal aortic aneurysm. Lymph nodes: Unremarkable. No enlarged lymph nodes. Urinary bladder: Contracted urinary bladder demonstrates mild wall thickening and perivesical fat stranding. Reproductive: Interval development of 2 adjacent simple appearing right ovarian cysts with the larger cyst measuring approximately 3.5 x 3.7 cm. Bones/joints: Unremarkable. No acute fracture. Soft tissues: Unremarkable. IMPRESSION: Diverticulosis of the colon. No evidence of acute diverticulitis. Mild bowel wall thickening involving distal descending and proximal sigmoid colon in the left lower quadrant probably reflect sequela of chronic diverticular disease or possibly short segment colitis. Interval development of 2 adjacent simple appearing right ovarian cysts with the larger cyst measuring approximately 3.5 x 3.7 cm. Electronically signed by: Sam Taylor On 10/26/2020 06:13:41 AM
--- NOTE | 2020-11-01 08:57 | ED PDOC ---
Post-Departure Follow-Up radiology report faxed to [facility] Sarah MD Nov 01, 2020 08:56
== END 2020-10-26 06:41 | disposition home or self-care (01) ==
LOC: M ED 02:44
DX: R10.32 Left lower quadrant pain (principal); R11.0 Nausea; I10 Essential (primary) hypertension; F33.9 Major depressive disorder, recurrent, unspecified; F41.9 Anxiety disorder, unspecified; K58.9 Irritable bowel syndrome, unspecified; Z87.19 Personal history of other diseases of the digestive system; Z79.899 Other long term (current) drug therapy; Z88.1 Allergy status to other antibiotic agents; Z88.5 Allergy status to narcotic agent; F17.210 Nicotine dependence, cigarettes, uncomplicated
CPT/HCPCS: 74177; 80048; 80076; 81001; 83690; 84703; 85025; 87086; 93041; 96361; 96374; 96375; 99284; J2405; J3010; Q9963; Q9967

== ENCOUNTER 2020-11-12 14:00 | Emergency (ER) | payer OTHER ==
[~2020-11-12] VITALS: Ht 160 cm; Wt 67.1 kg
[2020-11-12] MEDS ORDERED: DOCU-153 PO (14:44)
[2020-11-12] MEDS ORDERED: META28.32 PO (14:44)
[2020-11-12] MEDS ORDERED: NS 1,000 ML IV ONE (16:15)
--- NOTE | 2020-11-12 16:41 | REP ---
INDICATION: Abdominal Pain COMPARISON: 01/19/2020. TECHNIQUE: PA/Lateral FINDINGS: Lungs: Clear, no infiltrate. Heart: Normal in size. Mediastinum: Mediastinal silhouette unremarkable. Pleural angles: Unremarkable.. Bones and soft tissues: Unremarkable. IMPRESSION: No acute pulmonary disease. <Electronically signed by Herbie Mancilla > 11/12/20 [id number]
[2020-11-12] MEDS ORDERED: KETOROLAC 30 MG/ML 1ML VIAL IV ONE (17:10)
[2020-11-12 17:19] LABS: HEMATOCRIT 43.1 % (36.0-47.0); HEMOGLOBIN 14.4 g/dl (12.0-15.5); LYMPH % 24.3 % (24.0-44.0); MEAN CORPUSCULAR HEMOGLOBIN 32.1 pg (27.0-33.0); MEAN CORPUSCULAR HGB CONC 33.4 g/dl (32.0-36.5); MEAN CORPUSCULAR VOLUME 96.2 fl (80.0-96.0); MONO % 5.7 % (2.0-8.0); NEUTROPHILS % 65.2 % (36.0-66.0); PLATELET COUNT, AUTOMATED 289 10^3/uL (150-450); RED BLOOD COUNT 4.48 10^6/uL (4.00-5.40); WHITE BLOOD COUNT 11.1 10^3/uL (4.0-10.0)
[2020-11-12 17:20] LABS: BASO # 0.1 10^3/uL (0.0-0.2); BASO % 0.9 % (0.0-1.0); EOS # 0.4 10^3/uL (0.0-0.5); EOS % 3.4 % (0.0-3.0); LYMPH # 2.7 10^3/uL (1.5-5.0); MONO # 0.6 10^3/uL (0.0-0.8); NEUTROPHILS # 7.2 10^3/uL (1.5-8.5)
[2020-11-12] MEDS ORDERED: ISOVUE-370 76% 100ML VIAL As Ordered ONE (17:24)
[2020-11-12 17:44] LABS: HCG, SERUM QUALITATIVE NEGATIVE (NEGATIVE)
[2020-11-12 17:45] LABS: ALBUMIN 3.8 GM/DL (3.2-5.2); ALT/SGPT 38 U/L (12-78); BILIRUBIN,DIRECT < 0.1 MG/DL (0.0-0.2); BILIRUBIN,TOTAL 0.4 MG/DL (0.2-1.0); CK-MB VALUE MASS < 1.0 NG/ML (<3.6); CPK CREATINE PHOSPHOKINASE 79 U/L (26-192); LIPASE 49 U/L (73-393); MB/CK RELATIVE INDEX 1.27 (< OR =4); TOTAL PROTEIN 7.4 GM/DL (6.4-8.2); TROPONIN I < 0.02 NG/ML (< 0.10)
[2020-11-12] MEDS ORDERED: ONDANSETRON 4MG/2ML VIAL IV ONE (18:20)
--- NOTE | 2020-11-12 19:05 | REPVR ---
PROCEDURE INFORMATION: Exam: CT Abdomen And Pelvis With Contrast Exam date and time: 11/12/2020 4:12 PM Age: 45 years old Clinical indication: Abdominal pain; Additional info: Llq pain, HX diverticulitis TECHNIQUE: Imaging protocol: Computed tomography of the abdomen and pelvis with contrast. Radiation optimization: All CT scans at this facility use at least one of these dose optimization techniques: automated exposure control; mA and/or kV adjustment per patient size (includes targeted exams where dose is matched to clinical indication); or iterative reconstruction. Contrast material: ISOVUE 370; Contrast volume: 100 ml; Contrast route: INTRAVENOUS (IV); COMPARISON: CT ABD/PEL W/IV ORAL CONTRAS 10/26/2020 5:31 AM FINDINGS: Liver: Normal. No mass. Gallbladder and bile ducts: Normal. No calcified stones. No ductal dilation. Pancreas: Normal. No ductal dilation. Spleen: Normal. No splenomegaly. Adrenal glands: Normal. No mass. Kidneys and ureters: Normal. No hydronephrosis. Stomach and bowel: There is a subtle pericolonic fat stranding of the proximal sigmoid and distal descending colon (series 201, image 97, 98 and 99). Appendix: No evidence of appendicitis. Intraperitoneal space: Unremarkable. No free air. No significant fluid collection. Vasculature: Unremarkable. No abdominal aortic aneurysm. Lymph nodes: Unremarkable. No enlarged lymph nodes. Urinary bladder: Unremarkable as visualized. Reproductive: Unremarkable as visualized. Bones/joints: Unremarkable. No acute fracture. Soft tissues: Unremarkable. IMPRESSION: Subtle pericolonic fat stranding of the proximal sigmoid and distal descending colon suspicious for acute diverticulitis. No fluid collections/abscess. Electronically signed by: Jim Brown On 11/12/2020 19:05:14 PM
[2020-11-12] MEDS ORDERED: ZOFR4TAB16 PO (20:02)
[2020-11-12] MEDS ORDERED: PERC5TAB12 PO (20:03)
[2020-11-12] MEDS ORDERED: AUGM875T28 PO ×3 (20:04→20:17)
[2020-11-12] MEDS ORDERED: FLAG500T PO (20:09)
[2020-11-12] MEDS ORDERED: METH4PACK PO (20:13)
[2020-11-12 20:40] VITALS: BP 133/80
== END 2020-11-12 20:42 | disposition home or self-care (01) ==
LOC: M ED 14:00
DX: K57.92 Diverticulitis of intestine, part unspecified, without perforation or abscess without bleeding (principal); I10 Essential (primary) hypertension; J45.909 Unspecified asthma, uncomplicated; F31.9 Bipolar disorder, unspecified; F41.9 Anxiety disorder, unspecified; K21.9 Gastro-esophageal reflux disease without esophagitis; G43.909 Migraine, unspecified, not intractable, without status migrainosus; Z79.899 Other long term (current) drug therapy; Z88.1 Allergy status to other antibiotic agents; Z88.5 Allergy status to narcotic agent; F17.210 Nicotine dependence, cigarettes, uncomplicated
CPT/HCPCS: 71046; 74177; 80047; 80076; 81001; 82550; 82553; 83605; 83690; 84703; 85025; 87086; 96361; 96374; 96375; 99284; J1885; J2405; Q9967

== ENCOUNTER 2020-11-23 08:55 | Inpatient (IN) | payer OTHER ==
[~2020-11-23] VITALS: Ht 160 cm; Wt 66.8 kg
[~2020-11-23 08:55] MED LIST changes: +BACTDSTA; +DOCU-153 PO; +META28.32 PO; +METH4PACK PO; -SULF1TAB93
[2020-11-23] MEDS ORDERED: NS 1,000 ML IV ONE (09:55)
[2020-11-23] MEDS ORDERED: ONDANSETRON 4MG/2ML VIAL IV ONE (09:55)
[2020-11-23] MEDS ORDERED: PIPERACILLIN/TAZOBACTAM SOD 3.375 GM in D5W MINI-BAG PLUS 50 ML IV ONE (09:55)
[2020-11-23] MEDS ORDERED: KETOROLAC 30 MG/ML 1ML VIAL IV ONE (09:55)
[2020-11-23] MEDS ORDERED: ISOVUE-370 76% 100ML VIAL As Ordered ONE (10:49)
[2020-11-23 10:50] LABS: HEMATOCRIT 44.1 % (36.0-47.0); HEMOGLOBIN 15.1 g/dl (12.0-15.5); MEAN CORPUSCULAR HEMOGLOBIN 32.9 pg (27.0-33.0); MEAN CORPUSCULAR HGB CONC 34.2 g/dl (32.0-36.5); MEAN CORPUSCULAR VOLUME 96.1 fl (80.0-96.0); PLATELET COUNT, AUTOMATED 320 10^3/uL (150-450); RED BLOOD COUNT 4.59 10^6/uL (4.00-5.40)
[2020-11-23 11:00] LABS: WHITE BLOOD COUNT 13.1 10^3/uL (4.0-10.0)
[2020-11-23 11:23] LABS: ALBUMIN 3.7 GM/DL (3.2-5.2); ALT/SGPT 25 U/L (12-78); BILIRUBIN,DIRECT < 0.1 MG/DL (0.0-0.2); BILIRUBIN,TOTAL 0.3 MG/DL (0.2-1.0); HCG, SERUM QUANTITATIVE < 1.0 MIU/ML; LIPASE 44 U/L (73-393); TOTAL PROTEIN 7.2 GM/DL (6.4-8.2)
[2020-11-23 11:27] LABS: ATYPICAL LYMPH 11 % (0-5); EOSINOPHILS 1 % (0-3); LYMPHOCYTES 30 % (16-44); MONOCYTES 7 % (0-5); NEUTROPHILS 50 % (28-66); PLATELET ESTIMATE NORMAL (NORMAL)
--- NOTE | 2020-11-23 12:53 | REP ---
INDICATION: llq pain hx recent diverticulitis COMPARISON: None. TECHNIQUE: CT Scan of the abdomen and pelvis was performed with intravenous administration of 100 cc of Isovue 370, without oral contrast. Sagittal and coronal reconstruction images are performed. FINDINGS: Lung bases: Unremarkable. Liver: Normal Gallbladder: Unremarkable. Spleen: Normal. Adrenals: Normal. Pancreas: Normal. Kidneys: Normal. Small and large bowel: Once again there are multiple diverticula of the left colon, with stable pericolonic fat stranding of the lower left colon unchanged since the prior study. Again this may represent a mild degree of diverticulitis. There is no free air or abscess.. Free fluid: None. Abdominal aorta: No aneurysm or dissection. Adenopathy: None. Appendix: Prior appendectomy. Osseous structures: Unremarkable. Pelvis: No mass. Previously noted 2 cystic structures in the left ovary have resolved. IMPRESSION: Once again there are multiple diverticula of the left colon, with stable pericolonic fat stranding of the lower left colon unchanged since the prior study. Again this may represent a mild degree of diverticulitis. There is no free air or abscess.. <Electronically signed by Herbie Mancilla > 11/23/20 [id number]
[2020-11-23] MEDS ORDERED: fentaNYL 100 MCG/2 ML INJECTION (J3010) IV ONE (13:50)
[2020-11-23] MEDS ORDERED: NS 1,000 ML IV SCH (14:45)
[2020-11-23] MEDS ORDERED: ACETAMINOPHEN TAB 650MG DOSE (2X325MG) PO PRN (14:45)
--- NOTE | 2020-11-23 15:03 | HPEPDOC ---
General Date of Admission 11/23/20 Date of Service: November 23, 2020 Chief Complaint The patient is a 45-year-old female admitted with a reason for visit of Abd Pain. Source: Patient Exam Limitations: No limitations History of Present Illness Patient is 45 years old female with past history of hypertension, esophageal reflux, diverticulitis, bipolar disorder, osteoarthritis, fibromyalgia presented hospital with left lower abdominal pain, nausea and vomiting. Patient stated that started on Thursday and getting progressively worse and associated with n ausea and vomiting. Patient was diagnosed with diverticulitis and she reported that for past few months she had at least 5 acute diverticulitis exacerbation. Of note on November 13 patient was in ER with acute diverticulitis, Flagyl and Augmentin was prescribed for 10 days. Patient to prescribed medications however the treatment did not relief the symptoms. In ER patient was found to have leukocytosis of 13.1, lactic acidosis 1.2. CT abdomen and pelvis showed multiple diverticula of the left colon, with stable pericolonic fat stranding of the lower left colon unchanged since the prior study. Again this may represent a mild degree of diverticulitis Home Medications Scheduled Amlodipine Besylate (Norvasc) 5 Mg Tablet, 5 MG PO DAILY, (Reported) Amoxicillin/Potassium Clav (Augmentin 875-125 Tablet) 1 Each Tablet, 1 TAB PO BID Baclofen (Baclofen) 10 Mg Tablet, 10 MG PO TID, (Reported) Duloxetine Hcl (Cymbalta) 60 Mg Cap, 60 MG PO DAILY, (Reported) Gabapentin (Gabapentin) 300 Mg Capsule, 300 MG PO TID, (Reported) Lactobacillus Acidophilus (Probiotic) 1 Cap Cap, 1 CAP PO QHS, (Reported) Lamotrigine (Lamotrigine) 25 Mg Tablet, 50 MG PO BID, (Reported) Loratadine (Loratadine) 10 Mg Tablet, 10 MG PO DAILY, (Reported) Metoprolol Tartrate (Metoprolol Tartrate) 25 Mg Tab, 25 MG PO BID, (Reported) Metronidazole (Flagyl) 500 Mg Tablet, 500 MG PO Q8H Pantoprazole Sodium (Protonix) 40 Mg Tab, 40 MG PO QHS, (Reported) Scheduled PRN Docusate Sodium (Stool Softener) 100 Mg Capsule, 100 MG PO DAILY PRN for BOWEL CARE/CONSTIPATION, (Reported) Ondansetron HCl (Zofran) 4 Mg Tablet, 1 TAB PO Q6-8HP PRN for nausea/vomiting Oxycodone HCl/Acetaminophen (Percocet 5-325 mg Tablet) 1 Each Tablet, 1 TAB PO Q6H PRN for PAIN Miscellaneous Medications Psyllium Husk (with Sugar) (Metamucil Powder) 575 Gm Powder, 1 PKT PO, (Repo rted) Allergies Coded Allergies: ciprofloxacin (Verified Allergy, Severe, anaphylaxis, 04/08/19) hydromorphone (Verified Allergy, Intermediate, rash, 04/08/19) morphine (Verified Adverse Reaction, Intermediate, decreases bp, 04/08/19) Past Medical History Medical History HYPERTENSION ESOPHAGEAL REFLUX HIATUS HERNIA ANXIETY DISORDER DIVERTICULITIS IRRITABLE BOWEL SYNDROME, UNSPECIFIED TYPE OSTEOARTHRITIS FIBROMYALGIA Social History * Smoker: current smoker Alcohol: occationally Drugs: denies A-FIB/CHADSVASC A-FIB History Current/History of A-Fib/PAF?: No Current PO Anticoag Therapy: No Review of Systems Constitutional: Denies: Chills, Fever Eyes: Denies: Pain ENT: Denies: Head Aches Skin: Denies: Rash Pulmonary: Denies: Cough Gastrointestinal: Reports: Nausea, Vomiting, Abdominal Pain Genitourinary: Denies: Dysuria Hematologic: Denies: Bruising Endocrine: Denies: Polydipsia Musculoskeletal: Denies: Neck Pain Neurological: Denies: Weakness Psych: Reports: Mood Normal Physical Examination General Exam: Positive: Alert, Cooperative Eye Exam: Positive: PERRLA ENT Exam: Positive: Atraumatic Neck Exam: Positive: Supple; Negative: JVD Chest Exam: Positive: Clear to auscultation Heart Exam: Positive: Rate Normal Telemetry: Positive: No significant arrhythmia Abdomen Exam: Positive: Tenderness (lower left quadrant) Extremity Exam: Negative: Clubbing, Cyanosis Skin Exam: Positive: Nl turgor and temperature Neuro Exam: Positive: Strength at 5/5 X4 ext Psych Exam: Positive: Mental status NL Vital Signs Vital Signs Date Time Temp Pulse Resp B/P (MAP) Pulse Ox O2 Delivery O2 Flow Rate FiO2 11/23/20 14:11 18 11/23/20 11:17 11/23/20 08:55 98.2 77 96 Room Air Laboratory Data Labs 24H Laboratory Tests 2 11/23/20 10:19: Neutrophils (%) (Auto) , Nucleated Red Blood Cells % (auto) 0.0, Neutrophils 50, Band Neutrophils 1, Lymphocytes (Manual) 30, Monocytes (Manual) 7H, Eosinophils (Manual) 1, Atypical Lymphocytes 11H, Platelet Estimate NORMAL, Urine Color YELLOW, Urine Appearance HAZY, Urine pH 6.0, Urine Specific [place] 1.003, Urine Protein NEGATIVE, Urine Glucose (UA) NEGATIVE, Urine Ketones NEGATIVE, Urine Blood NEGATIVE, Urine Nitrite NEGATIVE, Urine Bilirubin NEGATIVE, Urine Urobilinogen 0.2, Urine Leukocyte Esterase NEGATIVE, Urine WBC (Auto) 1, Urine RBC (Auto) 3, Urine Hyaline Casts (Auto) 0, Urine Bacteria (Auto) 3+H, Urine Squamous Epithelial Cells 6, Urine Sperm (Auto) , Lactic Acid Level 1.2, Total Bilirubin 0.3, Direct Bilirubin < 0.1, Aspartate Amino Transf (AST/SGOT) 27, Alanine Aminotransferase (ALT/SGPT) 25, Alkaline Phosphatase 64, Total Protein 7.2, Albumin 3.7, Albumin/Globulin Ratio 1.1L, Lipase 44L, Human Chorionic Gonadotropin, Quant < 1.0 11/23/20 10:33: POC Glucose (Misc Panel) 81, POC Sodium (Misc Panel) 136, POC Potassium (Misc Panel) 4.0, POC Chloride (Misc Panel) 101, POC Total CO2 (Misc Panel) 27.0, POC Blood Urea Nitrogen (Misc Panel 6L, POC Ionized Calcium (Misc Panel) 4.6, POC Creatinine (Misc Panel) 0.6, POC Hematocrit (Misc Panel) 45.0 11/23/20 10:34: POC Beta HCG, Quantitative 6.7 CBC/BMP Laboratory Tests 11/23/20 10:19 Microbiology Microbiology 11/23/20 Respiratory Virus Panel (PCR) (JE), Received Pending 11/23/20 Blood Culture, Received Pending 11/23/20 Blood Culture, Received Pending Assessment/Plan Patient is 45 years old female with past history of hypertension, esophageal reflux, diverticulitis, bipolar disorder, osteoarthritis, fibromyalgia presented hospital with left lower abdominal pain, nausea and vomiting. Patient stated that started on Thursday and getting progressively worse and associated with nausea and vomiting. Patient was diagnosed with diverticulitis and she reported that for past few months she had at least 5 acute diverticulitis exacerbation. Of note on November 13 patient was in ER with acute diverticulitis, Flagyl and Augmentin was prescribed for 10 days. Patient to prescribed medications however the treatment did not relief the symptoms. In ER patient was found to have leukocytosis of 13.1, lactic acidosis 1.2. CT abdomen and pelvis showed multiple diverticula of the left colon, with stable pericolonic fat stranding of the lower left colon unchanged since the prior study. Again this may represent a mild degree of diverticulitis Problems (1) Diverticulitis Status: Acute Problem Text: Zosyn IV Clear liquid diet Pain management Appreciated/agree with surgical consult for possible sigmoidectomy Zofran IV (2) GERD (gastroesophageal reflux disease) Status: Chronic Problem Text: PPI (3) Hypertension Status: Chronic Problem Text: Continue home meds Blood pressure under control Plan / VTE VTE Prophylaxis Ordered?: Yes YULISA MORALES DO November 23, 2020 15:03
[2020-11-23] MEDS ORDERED: LAMO100T80 PO (15:05)
[2020-11-23] MEDS ORDERED: PERCOCET 5MG/325MG TAB PO SCH ×2 (15:05→18:00)
[2020-11-23] MEDS ORDERED: ONDANSETRON 4MG/2ML VIAL IV PRN (15:05)
[2020-11-23] MEDS ORDERED: AUGM875T28 PO (15:54)
[2020-11-23] MEDS ORDERED: cefTRIAXone SOD 2 GM in D5W MINI-BAG PLUS 50 ML IV ONE (15:55)
--- NOTE | 2020-11-23 16:46 | DS.PDOC ---
Discharge Summary General Date of Admission November 23, 2020 at 14:45 Date of Discharge 11/23/20 Discharge Summary PROCEDURES PERFORMED DURING STAY: [None]. ADMITTING DIAGNOSES: Diverticulitis GERD (gastroesophageal reflux disease) Hypertension DISCHARGE DIAGNOSES: Diverticulitis GERD (gastroesophageal reflux disease) Hypertension COMPLICATIONS/CHIEF COMPLAINT: Abdominal Pain, Diverticulitis. HISTORY OF PRESENT ILLNESS: Patient is 45 years old female with past history of hypertension, esophageal reflux, diverticulitis, bipolar disorder, ost eoarthritis, fibromyalgia presented hospital with left lower abdominal pain, nausea and vomiting. Patient stated that started on Thursday and getting progressively worse and associated with nausea and vomiting. Patient was diagnosed with diverticulitis and she reported that for past few months she had at least 5 acute diverticulitis exacerbation. Of note on November 13 patient was in ER with acute diverticulitis, Flagyl and Augmentin was prescribed for 10 days. Patient to prescribed medications however the treatment did not relief the symptoms. In ER patient was found to have leukocytosis of 13.1, lactic acidosis 1.2. CT abdomen and pelvis showed multiple diverticula of the left colon, with stable pericolonic fat stranding of the lower left colon unchanged since the prior study. Again this may represent a mild degree of diverticulitis HOSPITAL COURSE: Patient left the hospital AGAINST MEDICAL ADVICE DISCHARGE MEDICATIONS: Please see below. ALLERGIES: Please see below. PHYSICAL EXAMINATION ON DISCHARGE: VITAL SIGNS: Please see below. GENERAL: HEENT: NECK: CARDIOVASCULAR EXAMINATION: RESPIRATORY EXAMINATION: ABDOMINAL EXAMINATION: EXTREMITIES: SKIN: NEUROLOGICAL EXAMINATION: PSYCHIATRIC EXAMINATION: LABORATORY DATA: Please see below. IMAGING: PROGNOSIS: ACTIVITY: [As tolerated]. DIET: DISCHARGE PLAN: DISPOSITION: . DISCHARGE INSTRUCTIONS: 1. . ITEMS TO FOLLOWUP ON ON OUTPATIENT: 1. . DISCHARGE CONDITION: [Stable]. TIME SPENT ON DISCHARGE: Greater than minutes. Vital Signs/I&Os Vital Signs Date Time Temp Pulse Resp B/P (MAP) Pulse Ox O2 Delivery O2 Flow Rate FiO2 11/23/20 14:11 18 11/23/20 11:17 11/23/20 08:55 98.2 77 96 Room Air Laboratory Data Labs 24H Laboratory Tests 2 11/23/20 10:19: Neutrophils (%) (Auto) , Nucleated Red Blood Cells % (auto) 0.0, Neutrophils 50, Band Neutrophils 1, Lymphocytes (Manual) 30, Monocytes (Manual) 7H, Eosinophils (Manual) 1, Atypical Lymphocytes 11H, Platelet Estimate NORMAL, Urine Color YELLOW, Urine Appearance HAZY, Urine pH 6.0, Urine Specific [place] 1.003, Urine Protein NEGATIVE, Urine Glucose (UA) NEGATIVE, Urine Ketones NEGATIVE, Urine Blood NEGATIVE, Urine Nitrite NEGATIVE, Urine Bilirubin NEGATIVE, Urine Urobilinogen 0.2, Urine Leukocyte Esterase NEGATIVE, Urine WBC (Auto) 1, Urine RBC (Auto) 3, Urine Hyaline Casts (Auto) 0, Urine Bacteria (Auto) 3+H, Urine Squamous Epithelial Cells 6, Urine Sperm (Auto) , Lactic Acid Level 1.2, Total Bilirubin 0.3, Direct Bilirubin < 0.1, Aspartate Amino Transf (AST/SGOT) 27, Alanine Aminotransferase (ALT/SGPT) 25, Alkaline Phosphatase 64, Total Protein 7.2, Albumin 3.7, Albumin/Globulin Ratio 1.1L, Lipase 44L, Human Chorionic Gonadotropin, Quant < 1.0 11/23/20 10:33: POC Glucose (Misc Panel) 81, POC Sodium (Misc Panel) 136, POC Potassium (Misc Panel) 4.0, POC Chloride (Misc Panel) 101, POC Total CO2 (Misc Panel) 27.0, POC Blood Urea Nitrogen (Misc Panel 6L, POC Ionized Calcium (Misc Panel) 4.6, POC Creatinine (Misc Panel) 0.6, POC Hematocrit (Misc Panel) 45.0 11/23/20 10:34: POC Beta HCG, Quantitative 6.7 CBC/BMP Laboratory Tests 11/23/20 10:19 Microbiology Microbiology 11/23/20 Respiratory Virus Panel (PCR) (JE) - Final, Complete 11/23/20 Blood Culture, Received Pending 11/23/20 Blood Culture, Received Pending Discharge Medications Scheduled Amlodipine Besylate (Norvasc) 5 Mg Tablet, 5 MG PO DAILY, (Reported) Amoxicillin/Potassium Clav (Augmentin 875-125 Tablet) 1 Each Tablet, 1 TAB PO BID Duloxetine Hcl (Cymbalta) 60 Mg Cap, 60 MG PO QHS, (Reported) Gabapentin (Gabapentin) 300 Mg Capsule, 300 MG PO TID, (Reported) Lactobacillus Acidophilus (Probiotic) 1 Cap Cap, 1 CAP PO QPM, (Reported) Lamotrigine (Lamotrigine) 100 Mg Tablet, 50 MG PO BID, (Reported) Metoprolol Tartrate (Metoprolol Tartrate) 25 Mg Tab, 25 MG PO BID, (Reported) Pantoprazole Sodium (Protonix) 40 Mg Tab, 40 MG PO QHS, (Reported) Scheduled PRN Baclofen (Baclofen) 10 Mg Tablet, 10 MG PO BID PRN for SPASMS, (Reported) Loratadine (Loratadine) 10 Mg Tablet, 10 MG PO DAILY PRN for ALLERGIES, (Reported) Allergies Coded Allergies: ciprofloxacin (Verified Allergy, Severe, anaphylaxis, 04/08/19) hydromorphone (Verified Allergy, Intermediate, rash, 04/08/19) morphine (Verified Adverse Reaction, Intermediate, decreases bp, 04/08/19) YULISA MORALES DO November 23, 2020 16:45
[2020-11-23] MEDS ORDERED: PIPERACILLIN/TAZOBACTAM SOD 3.375 GM in D5W MINI-BAG PLUS 50 ML IV SCH (17:00)
[2020-11-23 17:10] VITALS: BP 111/76
[2020-11-23] MEDS ORDERED: PANTOPRAZOLE 40MG TAB (PROTONIX) PO SCH (21:00)
--- NOTE | 2020-11-23 23:20 | CR ---
CONSULTATION DATE: 11/23/2020 BRIEF HISTORY OF PRESENT ILLNESS: This patient is a 45-year-old female who has had an episode of diverticulitis about 5 years ago. Ever since then she has had ongoing pain and she states that she has pain at all times and this has not gotten any better and the story changed a little bit such that she states that the pain and the problem was gone for several months and then came back and she had several other episodes of diverticulitis. However she has had "multiple" episodes of diverticulitis over the last few months with no resolution of this, and when I look back at the CAT scans, they really have not changed and there is some suggestion of pericolonic thickening but I am not seeing much for evidence of diverticulitis itself and each time the report suggests possible mild diverticulitis, and thus presents again today with severe lower quadrant pain all across the lower abdomen. White count of 13,000 and a presumptive diagnosis of diverticulitis. She was planning on being admitted through the Medicine Service and possibly arranging for a sigmoid colectomy while she was here and after I saw her, I am not convinced she has had enough of a workup after a long discussion with her. She has had some increasing abdominal pain all across the upper abdomen, left upper quadrant, right lower quadrant. She has had nausea and vomiting and she has significant problems with bowel movements and has not had a colonoscopy for about 5 or 6 years. Initial one was performed outside this area. PAST MEDICAL HISTORY: The patient's past medical history is significant for: 1. History of diverticulitis. 2. History of esophageal reflux. 3. Hypertension. 4. Bipolar disorder. 5. Osteoarthritis. 6. Fibromyalgia. 7. Hypertension. MEDICATIONS: 1. Norvasc. 2. Augmentin. 3. Baclofen. 4. Cymbalta. 5. Gabapentin. 6. Probiotics. 7. Lamotrigine. 8. Loratadine. 9. Metoprolol. 10. Flagyl. 11. Protonix. 12. Percocet. 13. Colace. PHYSICAL EXAMINATION: GENERAL APPEARANCE: A 45-year-old female who looks older than stated age. HEENT: Unremarkable. NECK: Supple with adenopathy. LUNGS: Clear anteriorly. HEART: Regular. ABDOMEN: Tender in the epigastric area and left upper quadrant, suprapubic, left lower quadrant. IMPRESSION AND PLAN: The patient has tenderness throughout the abdomen and the CAT scan does not show what I would typically expect of recurrent episodes of diverticulitis and thus at this point my recommendation is that we have her admitted, give her IV fluids, IV antibiotics, see what her white count does overnight and I would think that she is going to need a GI workup, both probably an upper and lower endoscopy and possibly even an upper GI with small bowel follow through. What is concerning is that she has these ongoing complaints of partial obstructive symptoms that have been going on for a long period of time. More concerning is this pain that is out of proportion to what I am appreciating on CAT scan and her physical exam is way out of proportion to what I would expect to see on her CAT scan as well. Those issues concern me that this is not a simple diverticulitis and that there may be some other etiology for this. Obviously the possibilities include some sort of chronic stricture or narrowing in the colon, adhesions causing pain, discomfort, and that may be the reason why "this is not getting better" despite antibiotics and why this has not significant changed over the last 4 months. In any case, I would recommend that she have the endoscopies performed, possibly an upper GI with small bowel follow through as I stated earlier, to rule out any significant abnormality and at this point there is some concern given that there is not a specific point of inflammatory process that I can see on her CAT scan or repetitive area that is identified that preceding with a colectomy is less well defined. In any case, we will see what the further workup shows us.
[2020-11-24 07:54] LABS: HEMATOCRIT 40.1 % (36.0-47.0); HEMOGLOBIN 13.7 g/dl (12.0-15.5); MEAN CORPUSCULAR HEMOGLOBIN 33.1 pg (27.0-33.0); MEAN CORPUSCULAR HGB CONC 34.2 g/dl (32.0-36.5); MEAN CORPUSCULAR VOLUME 96.9 fl (80.0-96.0); PLATELET COUNT, AUTOMATED 307 10^3/uL (150-450); RED BLOOD COUNT 4.14 10^6/uL (4.00-5.40); WHITE BLOOD COUNT 9.9 10^3/uL (4.0-10.0)
[2020-11-24 07:55] LABS: ALBUMIN 3.3 GM/DL (3.2-5.2); ALT/SGPT 21 U/L (12-78); BILIRUBIN,TOTAL 0.2 MG/DL (0.2-1.0); BLOOD UREA NITROGEN 7 MG/DL (7-18); CALCIUM LEVEL 8.7 MG/DL (8.5-10.1); CARBON DIOXIDE LEVEL 24 MEQ/L (21-32); CHLORIDE LEVEL 108 MEQ/L (98-107); CREATININE FOR GFR 0.64 MG/DL (0.55-1.30); GLOMERULAR FILTRATION RATE > 60.0 (>58); GLUCOSE, FASTING 74 MG/DL (70-100); MAGNESIUM LEVEL 2.2 MG/DL (1.8-2.4); POTASSIUM SERUM 4.4 MEQ/L (3.5-5.1); SODIUM LEVEL 138 MEQ/L (136-145); TOTAL PROTEIN 6.2 GM/DL (6.4-8.2)
[2020-11-24] MEDS ORDERED: OXYC1TAB23 PO (08:03)
[2020-11-24] MEDS ORDERED: ENOXAPARIN 40MG/0.4ML SYRINGE (J1650 PER 10MG) SC SCH (09:00)
[2020-11-26] MEDS ORDERED: ISOVUE-370 76% 100ML VIAL As Ordered ONE (07:36)
== END 2020-11-23 15:08 | disposition left against medical advice (07) | DRG 244 ==
LOC: M ED 08:55 → M ED INP 14:45
PROVIDERS: ADMIT Internal Medicine; ATTEND Internal Medicine
DX: K57.92 Diverticulitis of intestine, part unspecified, without perforation or abscess without bleeding (principal); I10 Essential (primary) hypertension; K21.9 Gastro-esophageal reflux disease without esophagitis; F31.9 Bipolar disorder, unspecified; M19.90 Unspecified osteoarthritis, unspecified site; M79.7 Fibromyalgia; Z79.899 Other long term (current) drug therapy; Z88.5 Allergy status to narcotic agent; Z88.8 Allergy status to other drugs, medicaments and biological substances; K44.9 Diaphragmatic hernia without obstruction or gangrene; F17.200 Nicotine dependence, unspecified, uncomplicated

== ENCOUNTER 2020-11-24 05:03 | Emergency (ER) | payer OTHER ==
[~2020-11-24] VITALS: Ht 160 cm; Wt 67.1 kg
[~2020-11-24 05:03] MED LIST changes: +LAMO100T80 PO
[2020-11-24 05:57] LABS: BASO # 0.1 10^3/uL (0.0-0.2); BASO % 1.1 % (0.0-1.0); EOS # 0.4 10^3/uL (0.0-0.5); EOS % 4.6 % (0.0-3.0); HEMATOCRIT 42.6 % (36.0-47.0); HEMOGLOBIN 14.3 g/dl (12.0-15.5); LYMPH # 3.6 10^3/uL (1.5-5.0); LYMPH % 37.6 % (24.0-44.0); MEAN CORPUSCULAR HEMOGLOBIN 32.7 pg (27.0-33.0); MEAN CORPUSCULAR HGB CONC 33.6 g/dl (32.0-36.5); MEAN CORPUSCULAR VOLUME 97.5 fl (80.0-96.0); MONO # 0.6 10^3/uL (0.0-0.8); MONO % 6.7 % (2.0-8.0); NEUTROPHILS # 4.7 10^3/uL (1.5-8.5); NEUTROPHILS % 49.5 % (36.0-66.0); PLATELET COUNT, AUTOMATED 305 10^3/uL (150-450); RED BLOOD COUNT 4.37 10^6/uL (4.00-5.40); WHITE BLOOD COUNT 9.4 10^3/uL (4.0-10.0)
[2020-11-24 06:28] LABS: ALBUMIN 3.4 GM/DL (3.2-5.2); ALT/SGPT 21 U/L (12-78); BILIRUBIN,DIRECT < 0.1 MG/DL (0.0-0.2); BILIRUBIN,TOTAL 0.2 MG/DL (0.2-1.0); BLOOD UREA NITROGEN 8 MG/DL (7-18); CALCIUM LEVEL 8.5 MG/DL (8.5-10.1); CARBON DIOXIDE LEVEL 25 MEQ/L (21-32); CHLORIDE LEVEL 109 MEQ/L (98-107); CREATININE FOR GFR 0.68 MG/DL (0.55-1.30); GLOMERULAR FILTRATION RATE > 60.0 (>58); GLUCOSE, FASTING 78 MG/DL (70-100); LIPASE 57 U/L (73-393); POTASSIUM SERUM 4.4 MEQ/L (3.5-5.1); SODIUM LEVEL 138 MEQ/L (136-145); TOTAL PROTEIN 6.7 GM/DL (6.4-8.2)
[2020-11-24] MEDS ORDERED: PIPERACILLIN/TAZOBACTAM SOD 3.375 GM in D5W MINI-BAG PLUS 50 ML IV ONE (06:50)
[2020-11-24] MEDS ORDERED: KETOROLAC 30 MG/ML 1ML VIAL IV ONE (06:50)
[2020-11-24] MEDS ORDERED: OXYC1TAB23 PO (08:03)
[2020-11-24 08:44] VITALS: BP 136/81
== END 2020-11-24 08:53 | disposition home or self-care (01) ==
LOC: M ED 05:03
DX: K57.92 Diverticulitis of intestine, part unspecified, without perforation or abscess without bleeding (principal); I10 Essential (primary) hypertension; K21.9 Gastro-esophageal reflux disease without esophagitis; Z88.5 Allergy status to narcotic agent; Z88.1 Allergy status to other antibiotic agents; Z87.440 Personal history of urinary (tract) infections; Z87.42 Personal history of other diseases of the female genital tract; Z87.19 Personal history of other diseases of the digestive system; Z90.89 Acquired absence of other organs; Z98.890 Other specified postprocedural states
CPT/HCPCS: 36415; 80048; 80076; 83605; 83690; 85025; 96374; 99284; J1885; J2543

== ENCOUNTER 2020-11-26 06:18 | Inpatient (IN) | payer OTHER ==
[~2020-11-26] VITALS: Ht 160 cm; Wt 68.5 kg
[~2020-11-26 06:18] MED LIST changes: +OXYC1TAB23 PO
[2020-11-26] MEDS ORDERED: PERCOCET 5MG/325MG TAB PO ONE (07:00)
[2020-11-26] MEDS ORDERED: ONDANSETRON 4MG/2ML VIAL IV ONE (07:00)
[2020-11-26] MEDS ORDERED: NS 1,000 ML IV ONE (07:00)
[2020-11-26] MEDS ORDERED: DICYCLOMINE INJ 20MG/2ML (J0500) IM ONE ×2 (07:10→07:55)
[2020-11-26] MEDS ORDERED: PANTOPRAZOLE 40MG VIAL (C9113 PER 1) IV ONE (07:20)
[2020-11-26 07:22] LABS: BASO # 0.2 10^3/uL (0.0-0.2); BASO % 1.6 % (0.0-1.0); EOS # 0.5 10^3/uL (0.0-0.5); HEMATOCRIT 41.5 % (36.0-47.0); HEMOGLOBIN 14.2 g/dl (12.0-15.5); LYMPH # 3.6 10^3/uL (1.5-5.0); LYMPH % 39.2 % (24.0-44.0); MEAN CORPUSCULAR HEMOGLOBIN 32.7 pg (27.0-33.0); MEAN CORPUSCULAR HGB CONC 34.2 g/dl (32.0-36.5); MEAN CORPUSCULAR VOLUME 95.6 fl (80.0-96.0); MONO # 0.7 10^3/uL (0.0-0.8); MONO % 7.3 % (2.0-8.0); NEUTROPHILS # 4.3 10^3/uL (1.5-8.5); NEUTROPHILS % 46.6 % (36.0-66.0); PLATELET COUNT, AUTOMATED 300 10^3/uL (150-450); RED BLOOD COUNT 4.34 10^6/uL (4.00-5.40); WHITE BLOOD COUNT 9.2 10^3/uL (4.0-10.0)
[2020-11-26 07:45] LABS: ALBUMIN 3.3 GM/DL (3.2-5.2); ALT/SGPT 24 U/L (12-78); BILIRUBIN,DIRECT < 0.1 MG/DL (0.0-0.2); BILIRUBIN,TOTAL 0.1 MG/DL (0.2-1.0); LIPASE 46 U/L (73-393); TOTAL PROTEIN 6.6 GM/DL (6.4-8.2)
--- NOTE | 2020-11-26 08:39 | REPVR ---
PROCEDURE INFORMATION: Exam: CT Abdomen And Pelvis With Contrast Exam date and time: 11/26/2020 7:04 AM Age: 45 years old Clinical indication: Abdominal pain; Additional info: Diverticulitis / concern perforation TECHNIQUE: Imaging protocol: Computed tomography of the abdomen and pelvis with contrast. Radiation optimization: All CT scans at this facility use at least one of these dose optimization techniques: automated exposure control; mA and/or kV adjustment per patient size (includes targeted exams where dose is matched to clinical indication); or iterative reconstruction. Contrast material: ISOVUE 370; Contrast volume: 100 ml; Contrast route: INTRAVENOUS (IV); COMPARISON: CT ABD/PEL W/IV CONTRAST ONLY 11/23/2020 12:27 PM FINDINGS: Lungs: Bilateral dependent atelectasis. Liver: Normal. No mass. Gallbladder and bile ducts: Normal. No calcified stones. No ductal dilation. Pancreas: Normal. No ductal dilation. Spleen: Normal. No splenomegaly. Adrenal glands: Normal. No mass. Kidneys and ureters: Left renal cortical scarring. Stomach and bowel: Diverticulosis of colon. Redemonstration of mild peritoneal fat stranding in left lower quadrant which may reflect mild diverticulitis changes. Appendix: No evidence of appendicitis. Intraperitoneal space: No pneumoperitoneum or drainable abscess. Vasculature: Unremarkable. No abdominal aortic aneurysm. Lymph nodes: Unremarkable. No enlarged lymph nodes. Urinary bladder: Unremarkable as visualized. Reproductive: Unremarkable as visualized. Bones/joints: Unremarkable. No acute fracture. Soft tissues: Unremarkable. IMPRESSION: Diverticulosis of colon. Redemonstration of mild peritoneal fat stranding in left lower quadrant which may reflect mild diverticulitis changes. No pneumoperitoneum or drainable abscess. Overall appearance has not significantly changed since previous exam. Electronically signed by: Sam Taylor On 11/26/2020 08:39:06 AM
[2020-11-26] MEDS: GABAPENTIN 300 MG CAP PO SCH ×3 (09:00→20:29)
[2020-11-26] MEDS ORDERED: lamoTRIgine 25MG TAB PO SCH (09:00)
[2020-11-26] MEDS ORDERED: PIPERACILLIN/TAZOBACTAM SOD 3.375 GM in D5W MINI-BAG PLUS 50 ML IV ONE (09:20)
[2020-11-26] MEDS ORDERED: PERC5TAB12 PO (09:26)
[2020-11-26] MEDS ORDERED: AUGM875T28 PO (09:26)
[2020-11-26] MEDS ORDERED: LORATADINE 10 MG TAB PO PRN (10:55)
[2020-11-26] MEDS ORDERED: BACLOFEN 10 MG TAB PO PRN (10:55)
[2020-11-26] MEDS: NS 1,000 ML IV SCH (11:21)
[2020-11-26] MEDS: LACTOBACILLUS ACIDOPHILUS CAP (BACID) PO SCH ×3 (13:03→20:28)
[2020-11-26] MEDS ORDERED: DICYCLOMINE 10 MG CAP PO PRN (13:20)
--- NOTE | 2020-11-26 13:39 | HPEPDOC ---
[facility] Medical History & Physical Date of Admission November 26, 2020 Date of Service: November 26, 2020 History and Physical CHIEF COMPLAINT: Lower abdominal pain, nausea, vomiting HISTORY OF PRESENT ILLNESS: Patient has been to the emergency department multiple times over the weekend, and his matter fact she was going to be admitted last Thursday, but then she decided she did not want to and left instead, hoping that she may be able to work through it on her own with oral antibiotics. She continued to have lower abdominal pain, nausea, vomiting, and came back to the emergency room today, and is agreeable to an inpatient admission. Having failed outpatient antibiotic therapy, I do feel this is appropriate at this time. She reports that her first bout of diverticulitis occurred approximately 6 years ago, and ever since that time she has had intermittent episodes. She is been treated with multiple different antibiotics and other conservative therapies. She says that it has been at least a couple years since she has had a colonoscopy. CODE STATUS: Full code PAST MEDICAL HISTORY: History of multiple episodes of diverticulitis GERD Hypertension Bipolar disorder Osteoarthritis Fibromyalgia SOCIAL HISTORY: Current smoker, only drinks alcohol on occasion. Denies illicit drug use FAMILY HISTORY: She mentions that multiple members of her family do have GI complaints including multiple bouts of diverticulitis in her father and other members of her paternal family tree. Hypertension also runs in the family. REVIEW OF SYSTEMS: Constitutional: Patient denies fevers, chills, night sweats, recent weight gain/loss. HEENT: Patient denies blurred or double vision, transient visual disturbances, postnasal drip, epistaxis, sore throat, difficulty chewing or swallowing food. Cardiovascular: Patient denies chest discomfort/pain, palpitations, exertional dyspnea, orthopnea, edema of the extremities, claudication. Respiratory: Patient denies dyspnea, wheezing, cough, hemoptysis, sputum production. Gastrointestinal: Patient admits to nausea, vomiting, abdominal pain, intermittent diarrhea. Denies constipation, melena, hematochezia, hematemesis, jaundice. PHYSICAL EXAMINATION: General: Awake, alert, she does not appear to be in acute distress at this time, but she does appear uncomfortable. HEENT: Head normocephalic atraumatic, conjunctiva are pink, sclera are nonicteric, buccal mucosa is pink and moist with no lesions in the oropharynx. Hearing is grossly intact to conversation. Respiratory: Clear to auscultation bilaterally with no wheezes, rales, or rhonchi. Cardiovascular: Regular rate and rhythm, with no rubs, gallops, or murmur. Abdomen: Soft, tender, particularly in the lower/periumbilical region and left lower quadrant., nondistended, no hepatosplenomegaly appreciated. Bowel sounds present. Extremities: 2+ pulses in the radial and dorsalis pedis bilaterally. No evidence of clubbing or cyanosis. IMAGING: CT scan once again shows diverticulosis of the colon, with redemonstration of mild peritoneal fat stranding in the left lower quadrant which may reflect mild diverticulitis changes. Apparently this is unchanged from her previous exam a couple of days ago. Please see report for full details. ASSESSMENT/PLAN: Acute diverticulitis failing outpatient therapy -Will admit the patient to [facility] floor. Fluid rehydration with normal saline at 75 ML's per hour. For now we'll start her on a clear liquids diet. Empiric antibiotics with Zosyn 3.375gm IV every 8 hours. For pain control I will start her on Bentyl 10 mg every 8 hours as needed for abdominal pain. She also typically gets baclofen and oxycodone at home for fibromyalgia, which should be sufficient for her pain as well. She also takes 40 mg PO QHS Protonix at home for GERD, this will also be continued. I have spoken with General Surgery, they are familiar with her case, and they will plan on seeing her tomorrow with tentative scheduling for EDG and colonoscopy for pending how she progresses while inpatient. Bipolar disorder -Continue home dose of lamotrigine GERD -Continue home dose of Protonix Hypertension -Continue home dose of metoprolol and amlodipine Fibromyalgia -Continue pain medications of baclofen and oxycodone Vital Signs Vital Signs Date Time Temp Pulse Resp B/P (MAP) Pulse Ox O2 Delivery O2 Flow Rate FiO2 11/26/20 10:21 97.9 74 18 110/68 (82) 95 Room Air Laboratory Data Labs 24H Laboratory Tests 2 11/26/20 07:11: Immature Granulocyte % (Auto) 0.3, Neutrophils (%) (Auto) 46.6, Lymphocytes (%) (Auto) 39.2, Monocytes (%) (Auto) 7.3, Eosinophils (%) (Auto) 5.0H, Basophils (%) (Auto) 1.6H, Neutrophils # (Auto) 4.3, Lymphocytes # (Auto) 3.6, Monocytes # (Auto) 0.7, Eosinophils # (Auto) 0.5, Basophils # (Auto) 0.2, Nucleated Red B lood Cells % (auto) 0.0, Lactic Acid Level 1.0, Total Bilirubin 0.1L, Direct Bilirubin < 0.1, Aspartate Amino Transf (AST/SGOT) 22, Alanine Aminotransferase (ALT/SGPT) 24, Alkaline Phosphatase 64, Total Protein 6.6, Albumin 3.3, Albumin/Globulin Ratio 1.0L, Lipase 46L 11/26/20 07:12: POC Glucose (Misc Panel) 89, POC Sodium (Misc Panel) 137, POC Potassium (Misc Panel) 3.9, POC Chloride (Misc Panel) 105, POC Total CO2 (Misc Panel) 23.0, POC Blood Urea Nitrogen (Misc Panel 6L, POC Ionized Calcium (Misc Panel) 4.7, POC Creatinine (Misc Panel) 0.6, POC Hematocrit (Misc Panel) 42.0 11/26/20 07:19: POC Beta HCG, Quantitative < 5.0 CBC/BMP Laboratory Tests 11/26/20 07:11 Microbiology Microbiology 11/26/20 Gastrointestinal Tract Panel (PCR), Received Pending 11/26/20 Respiratory Virus Panel (PCR) (JE) - Final, Complete Home Medications Scheduled Amlodipine Besylate (Norvasc) 5 Mg Tablet, 5 MG PO QHS Amoxicillin/Potassium Clav (Augmentin 875-125 Tablet) 1 Each Tablet, 1 TAB PO BID STARTED 11/23/20 FOR 10 DAYS Duloxetine Hcl (Cymbalta) 60 Mg Cap, 60 MG PO QHS Gabapentin (Gabapentin) 300 Mg Capsule, 300 MG PO TID Lactobacillus Acidophilus (Probiotic) 1 Cap Cap, 1 CAP PO DAILY Lamotrigine (Lamotrigine) 100 Mg Tablet, 50 MG PO BID Metoprolol Tartrate (Metoprolol Tartrate) 25 Mg Tab, 25 MG PO BID Pantoprazole Sodium (Protonix) 40 Mg Tab, 40 MG PO QHS Scheduled PRN Baclofen (Baclofen) 10 Mg Tablet, 10 MG PO BID PRN for SPASMS Loratadine (Loratadine) 10 Mg Tablet, 10 MG PO DAILY PRN for ALLERGIES Oxycodone HCl/Acetaminophen (Percocet 5-325 mg Tablet) 1 Each Tablet, 1 TAB PO TID PRN for PAIN Allergies Coded Allergies: ciprofloxacin (Verified Allergy, Severe, anaphylaxis, 11/26/20) hydromorphone (Verified Allergy, Intermediate, rash, 11/26/20) morphine (Verified Adverse Reaction, Intermediate, decreases bp, 11/26/20) A-FIB/CHADSVASC A-FIB History Current/History of A-Fib/PAF?: No JILLIAN CUELLAR DO November 26, 2020 13:22
[2020-11-26] MEDS: PERCOCET 5MG/325MG TAB PO PRN (13:49)
[2020-11-26 14:11] VITALS: BP 115/75
[2020-11-26 17:43] LABS: C REACTIVE PROTEIN QUANTITATIV < 0.30 MG/DL (0.00-0.30)
[2020-11-26] MEDS: PIPERACILLIN/TAZOBACTAM SOD 3.375 GM in D5W MINI-BAG PLUS 50 ML IV SCH (18:11)
[2020-11-26 18:35] LABS: ERYTHROCYTE SEDIMENTATION RATE 9 mm/hr (0-20)
[2020-11-26 20:00] VITALS: BP 101/64
[2020-11-26] MEDS: lamoTRIgine 25MG TAB PO SCH (20:27)
[2020-11-26] MEDS: METOPROLOL TART 25 MG TABLET PO SCH (20:27)
[2020-11-26] MEDS: amLODIPine 5 MG TAB PO SCH (20:28)
[2020-11-26] MEDS: DULoxetine 30 MG CAP (CYMBALTA) PO SCH (20:29)
[2020-11-26] MEDS: PANTOPRAZOLE 40MG TAB (PROTONIX) PO SCH (20:29)
[2020-11-27] MEDS: NS 1,000 ML IV SCH ×2 (00:28→15:34)
[2020-11-27] MEDS: PERCOCET 5MG/325MG TAB PO PRN ×3 (00:47→22:08)
[2020-11-27 01:07] VITALS: BP 125/79
[2020-11-27] MEDS: PIPERACILLIN/TAZOBACTAM SOD 3.375 GM in D5W MINI-BAG PLUS 50 ML IV SCH ×3 (02:25→17:50)
[2020-11-27 07:07] LABS: HEMATOCRIT 38.1 % (36.0-47.0); HEMOGLOBIN 12.7 g/dl (12.0-15.5); MEAN CORPUSCULAR HEMOGLOBIN 32.2 pg (27.0-33.0); MEAN CORPUSCULAR HGB CONC 33.3 g/dl (32.0-36.5); MEAN CORPUSCULAR VOLUME 96.7 fl (80.0-96.0); PLATELET COUNT, AUTOMATED 248 10^3/uL (150-450); RED BLOOD COUNT 3.94 10^6/uL (4.00-5.40); WHITE BLOOD COUNT 8.4 10^3/uL (4.0-10.0)
[2020-11-27 07:36] LABS: BLOOD UREA NITROGEN 4 MG/DL (7-18); CALCIUM LEVEL 7.6 MG/DL (8.5-10.1); CARBON DIOXIDE LEVEL 24 MEQ/L (21-32); CHLORIDE LEVEL 108 MEQ/L (98-107); CREATININE FOR GFR 0.56 MG/DL (0.55-1.30); GLOMERULAR FILTRATION RATE > 60.0 (>58); GLUCOSE, FASTING 71 MG/DL (70-100); POTASSIUM SERUM 3.9 MEQ/L (3.5-5.1); SODIUM LEVEL 139 MEQ/L (136-145)
[2020-11-27 08:01] VITALS: BP 119/72
[2020-11-27] MEDS: ENOXAPARIN 40MG/0.4ML SYRINGE (J1650 PER 10MG) SC SCH ×2 (09:00→09:13)
[2020-11-27] MEDS: METOPROLOL TART 25 MG TABLET PO SCH ×2 (09:12→21:00)
[2020-11-27] MEDS: GABAPENTIN 300 MG CAP PO SCH ×3 (09:12→21:20)
[2020-11-27] MEDS: LACTOBACILLUS ACIDOPHILUS CAP (BACID) PO SCH ×4 (09:12→21:20)
[2020-11-27] MEDS ORDERED: ONDANSETRON 4MG/2ML VIAL IV PRN (10:25)
--- NOTE | 2020-11-27 17:10 | IPNPDOC ---
Subjective Date Seen The patient was seen on 11/27/20. Subjective Chief Complaint/HPI A very small diarrhea today, has some lower abdominal soreness and cramps when she has a bowel movement. Says her hemorrhoids are bothering her. Appetite better today. Objective Physical Examination General Exam: Positive: Alert, Cooperative, No Acute Distress Eye Exam: Positive: PERRLA, Conjunctiva & lids normal, EOMI; Negative: Sclera icteric Neck Exam: Positive: Supple; Negative: JVD, thyromegaly Chest Exam: Positive: Clear to auscultation, Normal air movement Heart Exam: Positive: Rate Normal, Regular Rhythm, Normal S1, Normal S2; Negative: Murmurs, Rubs Abdomen Exam: Positive: BS Hyperactive, Soft, Tenderness (left illiac fossa and extending across to the other side. ); Negative: Hepatospenomegaly Extremity Exam: Negative: Clubbing, Cyanosis, Edema Assessment /Plan Assessment 45 year old female with history of diverticulitis, hemmorroids, IBS, GERD, HTN, GERD was admitted for recurrent diverticulitis. She reports that her first bout of diverticulitis occurred approximately 6 years ago, and ever since that time she has had intermittent episodes. She was well from 2018 to 2019 however she had COVID infection in aug 2020 since thaen she has been having recurrent episodes . She says she had 5 episodes and has infact been on constant antibioitcs since September. She is been treated with multiple different antibiotics and other conservative therapies. Recurrent diverticulitis/ Chronic diverticulitis continue Zosyn planned for colonoscopy in 11/29/20 GERD PPI Hypertension metoprolol, amlodipine Bipolar disorder Osteoarthritis/Fibromyalgia cymbalta, gabapentin, lamotrigine, opiates Plan/VTE VTE Prophylaxis Ordered?: Yes VS, I&O, 24H, Fishbone Vital Signs/I&O Vital Signs Date Time Temp Pulse Resp B/P (MAP) Pulse Ox O2 Delivery O2 Flow Rate FiO2 11/27/20 13:00 18 11/27/20 08:01 98.6 62 119/72 (88) 98 Room Air I&O- Last 24 Hours up to 6 AM 11/27/20 07:00 Intake Total 3070 ml Output Total 200 ml Balance 2870 ml Laboratory Data 24H LABS Laboratory Tests 2 11/27/20 06:51: Nucleated Red Blood Cells % (auto) 0.0, Anion Gap 7L, Glomerular Filtration Rate > 60.0, Calcium Level 7.6L CBC/BMP Laboratory Tests 11/27/20 06:51 Microbiology Microbiology 11/26/20 Gastrointestinal Tract Panel (PCR) - Final, Complete 11/26/20 Respiratory Virus Panel (PCR) (JE) - Final, Complete KAYLYN DAWSON MD November 27, 2020 17:10
[2020-11-27 20:00] VITALS: BP 119/76
[2020-11-27] MEDS: amLODIPine 5 MG TAB PO SCH (21:00)
[2020-11-27] MEDS: lamoTRIgine 25MG TAB PO SCH (21:00)
[2020-11-27 21:15] VITALS: BP 111/76
[2020-11-27] MEDS: PANTOPRAZOLE 40MG TAB (PROTONIX) PO SCH (21:20)
[2020-11-27] MEDS: ANUSOL HC CREAM 30GM TOP SCH (21:20)
[2020-11-27] MEDS: DULoxetine 30 MG CAP (CYMBALTA) PO SCH (21:21)
--- NOTE | 2020-11-27 21:51 | CR ---
CONSULTATION DATE: 11/27/2020 HISTORY OF PRESENT ILLNESS: The patient was admitted to the Emergency Room and essentially left and was seen almost on a daily basis in the Emergency Room for ongoing abdominal pain, essentially for what has been deemed probable or possible diverticulitis that has been present for the last 5 months. She essentially had her first bout of diverticulitis 6 years ago but we do not have evidence of this. [facility] and she has been treated with multiple antibiotics over the last 5 months. She has pain constantly. It has been there for the last 5 months is what she describes, although later on in the discussion she states that sometimes it comes and goes. Each one of her CAT scans that has been done over these short last months seem to be very stable and show some mild thickening in the pericolonic tissue, which they do not describe, but may easily be chronic. PAST MEDICAL HISTORY: The patient's past medical history is significant for: 1. History of possible multiple episodes of diverticulitis. 2. History of gastroesophageal reflux disease. 3. History of hypertension. 4. History of bipolar disorder. 5. History of osteoarthritis. 6. History of fibromyalgia. PHYSICAL EXAMINATION: GENERAL APPEARANCE: A 45-year-old female who looks stated age. HEENT: Unremarkable. NECK: Supple without adenopathy. LUNGS: Clear to auscultation with crackles, wheezes or rhonchi. HEART: Regular without murmur. ABDOMEN: Soft, but she is tender throughout and severely tender in the left lower quadrant, out of proportion to what I am seeing on a white count or on her CAT scan. Her white count is 9.2 yesterday and 8.4 today. She has been afebrile. IMPRESSION AND PLAN: The patient has left lower quadrant pain of undetermined etiology. I am not convinced whatsoever that this has been ongoing episodes of diverticulitis, and I feel that that would be a poor reason for operative intervention. I do feel, however, she needs evaluation of her colon and thus a colonoscopy will be scheduled prior to her discharge. She has had attempts at scheduling this multiple times but cancellations with the electrical machine builder. In any case, we will plan on giving her a bowel prep on Thursday and proceed with a colonoscopy on . She does also have an appointment with the colorectal surgeons in [place] next month for further evaluation and recommendations concerning these recurrent multiple episodes of ongoing left lower quadrant pain. I do feel however that it is reasonable to treat her with antibiotics at this time, but I would feel that it is also indicated to have her evaluated concerning pain control issues by the Pain Clinic postoperatively if the colonoscopy reveals no significant abnormality except for some mild diverticulosis without inflammatory changes or edematous changes. Thus we will see what the colonoscopy shows on and determine our next course of action depending on this.
[2020-11-28] MEDS: NS 1,000 ML IV SCH ×2 (02:26→16:06)
[2020-11-28] MEDS: PIPERACILLIN/TAZOBACTAM SOD 3.375 GM in D5W MINI-BAG PLUS 50 ML IV SCH ×3 (02:26→18:19)
[2020-11-28 02:34] VITALS: BP 115/75
[2020-11-28 06:57] LABS: HEMATOCRIT 36.1 % (36.0-47.0); HEMOGLOBIN 12.4 g/dl (12.0-15.5); MEAN CORPUSCULAR HEMOGLOBIN 32.7 pg (27.0-33.0); MEAN CORPUSCULAR HGB CONC 34.3 g/dl (32.0-36.5); MEAN CORPUSCULAR VOLUME 95.3 fl (80.0-96.0); PLATELET COUNT, AUTOMATED 249 10^3/uL (150-450); RED BLOOD COUNT 3.79 10^6/uL (4.00-5.40)
[2020-11-28 07:18] LABS: BLOOD UREA NITROGEN 5 MG/DL (7-18); CALCIUM LEVEL 7.9 MG/DL (8.5-10.1); CARBON DIOXIDE LEVEL 24 MEQ/L (21-32); CHLORIDE LEVEL 110 MEQ/L (98-107); CREATININE FOR GFR 0.61 MG/DL (0.55-1.30); GLOMERULAR FILTRATION RATE > 60.0 (>58); GLUCOSE, FASTING 73 MG/DL (70-100); POTASSIUM SERUM 3.7 MEQ/L (3.5-5.1); SODIUM LEVEL 140 MEQ/L (136-145)
[2020-11-28 08:00] VITALS: BP 110/65
[2020-11-28] MEDS: LACTOBACILLUS ACIDOPHILUS CAP (BACID) PO SCH ×4 (08:30→20:28)
[2020-11-28] MEDS: ANUSOL HC CREAM 30GM TOP SCH ×2 (08:30→21:00)
[2020-11-28] MEDS: GABAPENTIN 300 MG CAP PO SCH ×3 (08:30→21:00)
[2020-11-28] MEDS: METOPROLOL TART 25 MG TABLET PO SCH ×2 (09:00→21:00)
[2020-11-28] MEDS ORDERED: MOM 30ML SUSPENSION UDC PO ONE (10:45)
[2020-11-28] MEDS ORDERED: BISACODYL 5 MG TAB PO ONE (10:45)
[2020-11-28] MEDS ORDERED: MAGNESIUM CITRATE 300 ML BTL PO ONE (12:00)
[2020-11-28] MEDS: PERCOCET 5MG/325MG TAB PO PRN ×2 (12:32→20:37)
[2020-11-28 16:00] VITALS: BP 110/72
[2020-11-28] MEDS ORDERED: FLUCONAZOLE 100 MG TAB PO ONE (17:00)
[2020-11-28 20:04] VITALS: BP 110/76
[2020-11-28] MEDS: DULoxetine 30 MG CAP (CYMBALTA) PO SCH (20:28)
[2020-11-28] MEDS: PANTOPRAZOLE 40MG TAB (PROTONIX) PO SCH (20:28)
[2020-11-28] MEDS: amLODIPine 5 MG TAB PO SCH (21:00)
[2020-11-28] MEDS: lamoTRIgine 25MG TAB PO SCH (21:00)
[2020-11-29] VITALS (7 sets, daily range): BP systolic 101–130; BP diastolic 61–88
[2020-11-29] MEDS: PIPERACILLIN/TAZOBACTAM SOD 3.375 GM in D5W MINI-BAG PLUS 50 ML IV SCH ×2 (02:48→10:54)
[2020-11-29 06:52] LABS: HEMATOCRIT 36.7 % (36.0-47.0); HEMOGLOBIN 12.6 g/dl (12.0-15.5); MEAN CORPUSCULAR HEMOGLOBIN 32.6 pg (27.0-33.0); MEAN CORPUSCULAR HGB CONC 34.3 g/dl (32.0-36.5); MEAN CORPUSCULAR VOLUME 94.8 fl (80.0-96.0); PLATELET COUNT, AUTOMATED 244 10^3/uL (150-450); RED BLOOD COUNT 3.87 10^6/uL (4.00-5.40); WHITE BLOOD COUNT 7.4 10^3/uL (4.0-10.0)
[2020-11-29 07:26] LABS: BLOOD UREA NITROGEN 2 MG/DL (7-18); CALCIUM LEVEL 7.7 MG/DL (8.5-10.1); CARBON DIOXIDE LEVEL 24 MEQ/L (21-32); CHLORIDE LEVEL 108 MEQ/L (98-107); CREATININE FOR GFR 0.52 MG/DL (0.55-1.30); GLOMERULAR FILTRATION RATE > 60.0 (>58); GLUCOSE, FASTING 70 MG/DL (70-100); POTASSIUM SERUM 3.6 MEQ/L (3.5-5.1); SODIUM LEVEL 137 MEQ/L (136-145)
[2020-11-29] MEDS: NS 1,000 ML IV SCH (07:38)
[2020-11-29] MEDS: LACTOBACILLUS ACIDOPHILUS CAP (BACID) PO SCH (08:55)
[2020-11-29] MEDS: METOPROLOL TART 25 MG TABLET PO SCH (08:57)
[2020-11-29] MEDS: GABAPENTIN 300 MG CAP PO SCH (09:00)
[2020-11-29] MEDS: ANUSOL HC CREAM 30GM TOP SCH (09:03)
[2020-11-29] MEDS ORDERED: LIDOCAINE 2% 100MG/5ML SDV (FOR ANES.) As Ordered ONE (13:44)
[2020-11-29] MEDS ORDERED: propofoL 200 MG/20 ML VIAL As Ordered ONE ×2 (13:44→14:06)
--- NOTE | 2020-11-29 14:21 | ROOR ---
Patient Name: Indira Stevens Procedure Date: 11/29/2020 1:53 PM Date of : 1975 Age: 45 Room: [facility] Gender: Female Note Status: Finalized Procedure: Colonoscopy Indications: Suspected diverticulitis Providers: Grabiel Bustamante Jr, MD Referring MD: Venecia Murphy Requesting Provider: Medicines: Propofol per Anesthesia Complications: No immediate complications. Procedure: Pre-Anesthesia Assessment: - Prior to the procedure, a History and Physical was performed, and patient medications and allergies were reviewed. The patient is competent. The risks and benefits of the procedure and the sedation options and risks were discussed with the patient. All questions were answered and informed consent was obtained. Patient identification and proposed procedure were verified by the physician and the nurse in the pre-procedure area and in the procedure room. Mental Status Examination: alert and oriented. Airway Examination: normal oropharyngeal airway and neck mobility. Respiratory Examination: clear to auscultation. CV Examination: normal. ASA Grade Assessment: II - A patient with mild systemic disease. After reviewing the risks and benefits, the patient was deemed in satisfactory condition to undergo the procedure. The anesthesia plan was to use moderate sedation / analgesia (conscious sedation). Immediately prior to administration of medications, the patient was re-assessed for adequacy to receive sedatives. The heart rate, respiratory rate, oxygen saturations, blood pressure, adequacy of pulmonary ventilation, and response to care were monitored throughout the procedure. The physical status of the patient was re-assessed after the procedure. The Colonoscope was introduced through the anus and advanced to the cecum, identified by appendiceal orifice and ileocecal valve. The colonoscopy was performed without difficulty. The patient tolerated the procedure well. The quality of the bowel preparation was fair and poor. Findings: The rectum, recto-sigmoid colon, transverse colon, ascending colon, cecum, appendiceal orifice and ileocecal valve appeared normal. Biopsies for histology were taken with a cold forceps from the ascending colon, transverse colon, descending colon and rectum for evaluation of microscopic colitis. A few small-mouthed diverticula were found in the descending colon. Scattered small-mouthed diverticula were found in the sigmoid colon. Impression: - Preparation of the colon was fair. - Preparation of the colon was poor. - The rectum, recto-sigmoid colon, transverse colon, ascending colon, cecum, appendiceal orifice and ileocecal valve are normal. Biopsied. - Diverticulosis in the descending colon. - Diverticulosis in the sigmoid colon. Recommendation: - Discharge patient to home (ambulatory). - Repeat colonoscopy in 10 years for screening purposes. Procedure Code(s): --- Professional --- 04161, Colonoscopy, flexible; with biopsy, single or multiple Diagnosis Code(s): --- Professional --- K57.30, Diverticulosis of large intestine without perforation or abscess without bleeding CPT copyright 2019 [employer]. All rights reserved. The codes documented in this report are preliminary and upon cardiac specialist review may be revised to meet current compliance requirements. Grabiel Bustamante MD Grabiel Bustamante Jr, MD 11/29/2020 2:21:26 PM Electronically signed by Grabiel Bustamante Jr, MD Number of Addenda: 0 Note Initiated On: 11/29/2020 1:53 PM Estimated Blood Loss: Estimated blood loss: none.
[2020-11-29] MEDS ORDERED: FLUC100T PO (16:39)
[2020-11-29] MEDS ORDERED: PROC1CRE5 TOP (16:39)
--- NOTE | 2020-11-29 16:42 | IPNPDOC ---
Subjective Date Seen The patient was seen on 11/28/20. Subjective Chief Complaint/HPI Had 3 bowel movements in the last 24 hours. Planned for colonoscopy tomorrow. No fever or chills. Continues to have lower abdominal pain worse during bowel movements. Objective Physical Examination General Exam: Positive: Alert, Cooperative, No Acute Distress Eye Exam: Positive: PERRLA, Conjunctiva & lids normal, EOMI; Negative: Sclera icteric Neck Exam: Positive: Supple; Negative: JVD, thyromegaly Chest Exam: Positive: Clear to auscultation, Normal air movement Heart Exam: Positive: Rate Normal, Regular Rhythm, Normal S1, Normal S2; Negative: Murmurs, Rubs Abdomen Exam: Positive: BS Hyperactive, Soft, Tenderness (left illiac fossa and extending across to the other side. ); Negative: Hepatospenomegaly Extremity Exam: Negative: Clubbing, Cyanosis, Edema Assessment /Plan Assessment 45 year old female with history of diverticulitis, hemorrhoids, IBS, GERD, HTN, GERD was admitted for recurrent diverticulitis. She reports that her first bout of diverticulitis occurred approximately 6 years ago, and ever since that time she has had intermittent episodes. She was well from 2018 to 2019 however she had COVID infection in aug 2020 since thaen she has been having recurrent episodes . She says she had 5 episodes and has in fact been on constant antibiotics since September. She is been treated with multiple different antibiotics and other conservative therapies. Recurrent diverticulitis/ Chronic diverticulitis continue Zosyn planned for colonoscopy in 11/29/20 On dicyclomine, oxycodone ad zofran for symptoms. GERD PPI Hypertension metoprolol, amlodipine Bipolar disorder Osteoarthritis/Fibromyalgia cymbalta, gabapentin, lamotrigine, opiates and baclofen. Plan/VTE VTE Prophylaxis Ordered?: Yes VS, I&O, 24H, Fishbone Vital Signs/I&O Vital Signs Date Time Temp Pulse Resp B/P (MAP) Pulse Ox O2 Delivery O2 Flow Rate FiO2 11/28/20 08:00 99.1 60 16 110/65 (80) 97 Room Air I&O- Last 24 Hours up to 6 AM 11/28/20 06:00 Intake Total 2860 ml Output Total 2450 ml Balance 410 ml Laboratory Data 24H LABS Laboratory Tests 2 5/19/21 06:32: Nucleated Red Blood Cells % (auto) 0.0, Anion Gap 6L, Glomerular Filtration Rate > 60.0, Calcium Level 7.9L CBC/BMP Laboratory Tests 11/28/20 06:32 Microbiology Microbiology 11/26/20 Gastrointestinal Tract Panel (PCR) - Final, Complete 11/26/20 Respiratory Virus Panel (PCR) (JE) - Final, Complete KAYLYN DAWSON MD November 28, 2020 10:15
--- NOTE | 2020-11-29 16:50 | DS.PDOC ---
Discharge Summary General Date of Admission November 26, 2020 at 10:37 Date of Discharge 11/29/20 Discharge Summary PROCEDURES PERFORMED DURING STAY: Colonoscopy: Findings: The rectum, recto-sigmoid colon, transverse colon, ascending colon, cecum, appendiceal orifice and ileocecal valve appeared normal. Biopsies for histology were taken with a cold forceps from the ascending colon, transverse colon, descending colon and rectum for evaluation of microscopic colitis. A few small-mouthed diverticula were found in the descending colon. Scattered small-mouthed diverticula were found in the sigmoid colon. Impression: - Preparation of the colon was fair. - Preparation of the colon was poor. - The rectum, recto-sigmoid colon, transverse colon, ascending colon, cecum, appendiceal orifice and ileocecal valve are normal. Biopsied. - Diverticulosis in the descending colon. - Diverticulosis in the sigmoid colon. DISCHARGE DIAGNOSES: Recurrent Diverticulitis Diverticulosis GERD Fibromyalgia HTN Bipolar COMPLICATIONS/CHIEF COMPLAINT: Diverticulitis. HOSPITAL COURSE: 45 year old female with history of diverticulitis, hemmorroids, IBS, GERD, HTN, GERD was admitted for recurrent diverticulitis. She reports that her first bout of diverticulitis occurred approximately 6 years ago, and ever since that time she has had intermittent episodes. She was well from 2018 to 2019 however she had COVID infection in aug 2020 since thaen she has been having recurrent episodes . She says she had 5 episodes and has in fact been on constant antibioitcs since September. She is been treated with multiple different antibiotics and other conservative therapies. Recurrent diverticulitis/ Chronic diverticulitis continue Augmentin. given zosyn in hospital Colonoscopy negative. GERD PPI Hypertension metoprolol, amlodipine Bipolar disorder Osteoarthritis/Fibromyalgia cymbalta, gabapentin, lamotrigine, opiates DISCHARGE MEDICATIONS: Please see below. ALLERGIES: Please see below. PHYSICAL EXAMINATION ON DISCHARGE: VITAL SIGNS: Please see below. General Exam: Positive: Alert, Cooperative, No Acute Distress Eye Exam: Positive: PERRLA, Conjunctiva & lids normal, EOMI; Negative: Sclera icteric Neck Exam: Positive: Supple; Negative: JVD, thyromegaly Chest Exam: Positive: Clear to auscultation, Normal air movement Heart Exam: Positive: Rate Normal, Regular Rhythm, Normal S1, Normal S2; Negative: Murmurs, Rubs Abdomen Exam: Positive: BS Hyperactive, Soft, Tenderness (left illiac fossa and extending across to the other side. ); Negative: Hepatosplenomegaly Extremity Exam: Negative: Clubbing, Cyanosis, Edema LABORATORY DATA: Please see below. CT abdomen and pelvis with IV contrast only: FINDINGS: Lungs: Bilateral dependent atelectasis. Liver: Normal. No mass. Gallbladder and bile ducts: Normal. No calcified stones. No ductal dilation. Pancreas: Normal. No ductal dilation. Spleen: Normal. No splenomegaly. Adrenal glands: Normal. No mass. Kidneys and ureters: Left renal cortical scarring. Stomach and bowel: Diverticulosis of colon. Redemonstration of mild peritoneal fat stranding in left lower quadrant which may reflect mild diverticulitis changes. Appendix: No evidence of appendicitis. Intraperitoneal space: No pneumoperitoneum or drainable abscess. Vasculature: Unremarkable. No abdominal aortic aneurysm. Lymph nodes: Unremarkable. No enlarged lymph nodes. Urinary bladder: Unremarkable as visualized. Reproductive: Unremarkable as visualized. Bones/joints: Unremarkable. No acute fracture. Soft tissues: Unremarkable. IMPRESSION: Diverticulosis of colon. Redemonstration of mild peritoneal fat stranding in left lower quadrant which may reflect mild diverticulitis changes. No pneumoperitoneum or drainable abscess. Overall appearance has not significantly changed since previous exam. ACTIVITY: [As tolerated]. DIET: As tolerated DISCHARGE PLAN: Home DISPOSITION: . DISCHARGE INSTRUCTIONS: PMD in [address] Bustamante in 2 weeks ITEMS TO FOLLOWUP ON ON OUTPATIENT: Colon biopsy DISCHARGE CONDITION: [Stable]. TIME SPENT ON DISCHARGE: 35 minutes. Vital Signs/I&Os Vital Signs Date Time Temp Pulse Resp B/P (MAP) Pulse Ox O2 Delivery O2 Flow Rate FiO2 11/29/20 16:00 97.7 58 16 118/82 (94) 98 Room Air I&O- Last 24 Hours up to 6 AM 11/29/20 07:00 Intake Total 1640 ml Output Total 1050 ml Balance 590 ml Laboratory Data Labs 24H Laboratory Tests 2 11/29/20 06:35: Nucleated Red Blood Cells % (auto) 0.0, Anion Gap 5L, Glomerular Filtration Rate > 60.0, Calcium Level 7.7L CBC/BMP Laboratory Tests 11/29/20 06:35 Microbiology Microbiology 11/26/20 Gastrointestinal Tract Panel (PCR) - Final, Complete 11/26/20 Respiratory Virus Panel (PCR) (JE) - Final, Complete Discharge Medications Scheduled Amlodipine Besylate (Norvasc) 5 Mg Tablet, 5 MG PO QHS, (Reported) Amoxicillin/Potassium Clav (Augmentin 875-125 Tablet) 1 Each Tablet, 1 TAB PO BID, (Reported) STARTED 11/23/20 FOR 10 DAYS Duloxetine Hcl (Cymbalta) 60 Mg Cap, 60 MG PO QHS, (Reported) Fluconazole (Fluconazole) 100 Mg Tablet, 200 MG PO ONCE take on 12/01/20 Gabapentin (Gabapentin) 300 Mg Capsule, 300 MG PO TID, (Reported) Hydrocortisone (Proctozone-Hc) 30 Gm Crm.pe.jamal, 0 DOSE TOP BID Lactobacillus Acidophilus (Probiotic) 1 Cap Cap, 1 CAP PO DAILY, (Reported) Lamotrigine (Lamotrigine) 100 Mg Tablet, 50 MG PO BID, (Reported) Metoprolol Tartrate (Metoprolol Tartrate) 25 Mg Tab, 25 MG PO BID, (Reported) Pantoprazole Sodium (Protonix) 40 Mg Tab, 40 MG PO QHS, (Reported) Scheduled PRN Baclofen (Baclofen) 10 Mg Tablet, 10 MG PO BID PRN for SPASMS, (Reported) Loratadine (Loratadine) 10 Mg Tablet, 10 MG PO DAILY PRN for ALLERGIES, (Reported) Oxycodone HCl/Acetaminophen (Percocet 5-325 mg Tablet) 1 Each Tablet, 1 TAB PO TID PRN for PAIN, (Reported) Allergies Coded Allergies: ciprofloxacin (Verified Allergy, Severe, anaphylaxis, 11/26/20) hydromorphone (Verified Allergy, Intermediate, rash, 11/26/20) morphine (Verified Adverse Reaction, Intermediate, decreases bp, 11/26/20) KAYLYN DAWSON MD November 29, 2020 16:50
[2020-12-01] MEDS ORDERED: FLUCONAZOLE 100 MG TAB PO ONE (09:00)
[2020-12-03 18:06] LABS: Chitobioside Carbohydrat (ACCA 26 units (0-90); Laminaribioside Carbohyd (ALCA 44 units (0-60); Mannobioside Carbohydrat (AMCA 161 units (0-100); Saccharomyces cerevisiae IgG A 30 units (0-50)
== END 2020-11-29 18:05 | disposition home or self-care (01) | DRG 244 ==
LOC: M ED 06:18 → M ED INP 10:37 → ENRESERV 12:10 → M PED 14:05 → ENRESERV 17:29
PROVIDERS: ADMIT Neuromusculoskeletal Medicine & OMM; ATTEND Internal Medicine Nephrology
PROC: 0DBK8ZX Excision of Ascending Colon, Via Natural or Artificial Opening Endoscopic, Diagnostic (ICD-10-PCS; 2020-11-29)
PROC: 0DBM8ZX Excision of Descending Colon, Via Natural or Artificial Opening Endoscopic, Diagnostic (ICD-10-PCS; 2020-11-29)
PROC: 0DBP8ZX Excision of Rectum, Via Natural or Artificial Opening Endoscopic, Diagnostic (ICD-10-PCS; 2020-11-29)
PROC: 0DBL8ZX Excision of Transverse Colon, Via Natural or Artificial Opening Endoscopic, Diagnostic (ICD-10-PCS; principal; 2020-11-29 14:00)
DX: K57.32 Diverticulitis of large intestine without perforation or abscess without bleeding (principal); I10 Essential (primary) hypertension; K21.9 Gastro-esophageal reflux disease without esophagitis; F31.9 Bipolar disorder, unspecified; M79.7 Fibromyalgia; K64.9 Unspecified hemorrhoids; M19.90 Unspecified osteoarthritis, unspecified site; F17.200 Nicotine dependence, unspecified, uncomplicated; Z79.899 Other long term (current) drug therapy; Z88.1 Allergy status to other antibiotic agents; Z86.16 Personal history of COVID-19; Z88.5 Allergy status to narcotic agent

== ENCOUNTER 2020-12-19 08:56 | Emergency (ER) | payer OTHER ==
[~2020-12-19] VITALS: Ht 160 cm; Wt 65.3 kg
[~2020-12-19 08:56] MED LIST changes: +FLUC100T PO; +PROC1CRE5 TOP
[2020-12-19 10:09] LABS: BASO # 0.1 10^3/uL (0.0-0.2); BASO % 1.2 % (0.0-1.0); EOS # 0.3 10^3/uL (0.0-0.5); HEMATOCRIT 41.4 % (36.0-47.0); HEMOGLOBIN 14.1 g/dl (12.0-15.5); LYMPH # 2.6 10^3/uL (1.5-5.0); LYMPH % 27.8 % (24.0-44.0); MEAN CORPUSCULAR HEMOGLOBIN 32.2 pg (27.0-33.0); MEAN CORPUSCULAR HGB CONC 34.1 g/dl (32.0-36.5); MEAN CORPUSCULAR VOLUME 94.5 fl (80.0-96.0); MONO # 0.7 10^3/uL (0.0-0.8); MONO % 7.3 % (2.0-8.0); NEUTROPHILS # 5.6 10^3/uL (1.5-8.5); NEUTROPHILS % 60.4 % (36.0-66.0); PLATELET COUNT, AUTOMATED 252 10^3/uL (150-450); RED BLOOD COUNT 4.38 10^6/uL (4.00-5.40); WHITE BLOOD COUNT 9.3 10^3/uL (4.0-10.0)
--- NOTE | 2020-12-19 10:12 | REP ---
INDICATION: abd pain COMPARISON: None. TECHNIQUE: Supine view of the abdomen and pelvis. FINDINGS: Bowel gas pattern is nonspecific and without obstruction or perforation. No organomegaly. No abnormal calcifications. Skeletal structures intact. Phleboliths noted in the pelvis. No foreign body. IMPRESSION: Normal abdominal radiograph. <Electronically signed by Willem Deng > 12/19/20 [id number]
--- NOTE | 2020-12-19 11:10 | REP ---
INDICATION: 11/12/2020 COMPARISON: None. TECHNIQUE: Portable AP view of the chest FINDINGS: The mediastinum and cardiac silhouette are stable and within normal limits for portable technique. The lung cervantes are clear without acute consolidation, effusion, or pneumothorax. Skeletal structures are intact. IMPRESSION: No acute cardiopulmonary process appreciated. <Electronically signed by Willem Deng > 12/19/20 [id number]
[2020-12-19] MEDS ORDERED: NS 1,000 ML IV ONE (11:25)
[2020-12-19 11:30] LABS: ALBUMIN 3.5 GM/DL (3.2-5.2); ALT/SGPT 19 U/L (12-78); BILIRUBIN,DIRECT < 0.1 MG/DL (0.0-0.2); BILIRUBIN,TOTAL 0.2 MG/DL (0.2-1.0); BLOOD UREA NITROGEN 5 MG/DL (7-18); CALCIUM LEVEL 8.7 MG/DL (8.5-10.1); CARBON DIOXIDE LEVEL 25 MEQ/L (21-32); CHLORIDE LEVEL 108 MEQ/L (98-107); CREATININE FOR GFR 0.64 MG/DL (0.55-1.30); GLOMERULAR FILTRATION RATE > 60.0 (>58); GLUCOSE, FASTING 90 MG/DL (70-100); POTASSIUM SERUM 3.8 MEQ/L (3.5-5.1); SODIUM LEVEL 138 MEQ/L (136-145); TOTAL PROTEIN 7.1 GM/DL (6.4-8.2)
[2020-12-19] MEDS ORDERED: ISOVUE-370 76% 100ML VIAL As Ordered ONE (11:47)
[2020-12-19] MEDS ORDERED: ONDANSETRON 4MG/2ML VIAL IV ONE ×2 (12:00→12:05)
[2020-12-19] MEDS ORDERED: fentaNYL 100 MCG/2 ML INJECTION (J3010) IV ONE (12:05)
--- NOTE | 2020-12-19 12:12 | REP ---
INDICATION: hx divertic 2 wks ago -increast pain. COMPARISON: Multiple the latest 11/26/2020 TECHNIQUE: Standard helical technique after the intravenous administration of 100 cc Isovue 370. No oral bowel preparatory contrast was administered prior to the exam. FINDINGS: The lung bases are clear and unchanged. The liver, gallbladder, spleen, pancreas, adrenal glands, and kidneys are unchanged and again seen to be within normal limits. The abdominal aorta and para-aortic regions are unchanged and again seen to be within normal limits. There is no free fluid or free air. The bowel loops and the mesenteries are unchanged. There is colonic diverticulosis status quo with no change in the minimal isolated descending colon fatty infiltration In the right hemipelvis there is an oval-shaped 5.5 cm sized area of low-density which is smoothly marginated and has slightly higher than water density Hounsfield unit readings. This abuts an additional separate round low-density structure which measures 3.1 cm also having near water density Hounsfield unit readings and also representing a change from the prior exam. There is no change the osseous structures. IMPRESSION: 1. Two right sherice pelvic cystic structures, as described above, likely of ovarian origin. Follow-up with ultrasound to ensure resolution is recommended. 2. Other findings as described above. 1. <Electronically signed by Malcolm Aiken > 12/19/20 [id number]
[2020-12-19 14:40] LABS: AMYLASE 17 U/L (25-115); CK-MB VALUE MASS < 1.0 NG/ML (<3.6); CPK CREATINE PHOSPHOKINASE 37 U/L (26-192); LIPASE 46 U/L (73-393); TROPONIN I < 0.02 NG/ML (< 0.10)
--- NOTE | 2020-12-19 14:41 | REP ---
INDICATION: abnormal ct. COMPARISON: 10/07/[address] obtained earlier today TECHNIQUE: Transvesical and transvaginal imaging FINDINGS: The uterus measures 9.3 x 3 cm. The parenchymal echo pattern is unchanged from the prior exam. The endometrial echo complex is unremarkable measuring 8 mm in its greatest thickness. The left ovary measures 2.9 x 1.8 x 2.7 cm and is within normal limits with an RI 0.65. In the right adnexa there is an anechoic structure which measures 5.7 x 5.2 x 4.7 cm. Within this there is an additional round mixed echo complex appearing structure which measures approximately 3.3 cm. IMPRESSION: Complex findings in the right adnexa as described above. Dermoid cyst or even hemorrhagic teratoma cannot be ruled out. Intra cystic hemorrhagic cyst is also a consideration. Clinical correlation with OBGYN consultation is suggested along with follow-up. <Electronically signed by Malcolm Aiken > 12/19/20 [id number]
[2020-12-19] MEDS ORDERED: PERC5TAB12 PO (15:14)
[2020-12-19 15:33] VITALS: BP 164/86
--- NOTE | 2020-12-19 18:59 | ED PDOC ---
Post-Departure Follow-Up pelvic us and ct abd/p faxed to jeanne alfredo and dr [place] for fu Jan Varghese MD Dec 19, 2020 18:59
--- NOTE | 2020-12-19 19:51 | ECGEPIP ---
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
== END 2020-12-19 15:35 | disposition home or self-care (01) ==
LOC: M ED 08:56
DX: R10.9 Unspecified abdominal pain (principal); D27.0 Benign neoplasm of right ovary; K57.32 Diverticulitis of large intestine without perforation or abscess without bleeding; I10 Essential (primary) hypertension; K21.9 Gastro-esophageal reflux disease without esophagitis; M79.7 Fibromyalgia; F31.9 Bipolar disorder, unspecified; Z88.1 Allergy status to other antibiotic agents; Z88.6 Allergy status to analgesic agent; Z79.899 Other long term (current) drug therapy
CPT/HCPCS: 36415; 71045; 74018; 74177; 76830; 76856; 80048; 80076; 81001; 82150; 82550; 82553; 83605; 83690; 84702; 85025; 87040; 93005; 93041; 93976; 96361; 96374; 96375; 99285; J2405; J3010; Q9967

== ENCOUNTER 2021-01-10 11:15 | Emergency (ER) | payer OTHER ==
[~2021-01-10] VITALS: Ht 160 cm; Wt 66.0 kg
[2021-01-10] MEDS ORDERED: NS 1,000 ML IV ONE (12:10)
[2021-01-10] MEDS ORDERED: KETOROLAC 30 MG/ML 1ML VIAL IV ONE (12:10)
[2021-01-10] MEDS ORDERED: ONDANSETRON 4MG/2ML VIAL IV ONE (12:10)
[2021-01-10 12:15] LABS: BASO # 0.1 10^3/uL (0.0-0.2); BASO % 1.5 % (0.0-1.0); EOS # 0.3 10^3/uL (0.0-0.5); EOS % 3.9 % (0.0-3.0); HEMATOCRIT 41.1 % (36.0-47.0); HEMOGLOBIN 14.1 g/dl (12.0-15.5); LYMPH # 2.4 10^3/uL (1.5-5.0); LYMPH % 29.4 % (24.0-44.0); MEAN CORPUSCULAR HEMOGLOBIN 32.1 pg (27.0-33.0); MEAN CORPUSCULAR HGB CONC 34.3 g/dl (32.0-36.5); MEAN CORPUSCULAR VOLUME 93.6 fl (80.0-96.0); MONO # 0.6 10^3/uL (0.0-0.8); MONO % 7.9 % (2.0-8.0); NEUTROPHILS # 4.6 10^3/uL (1.5-8.5); PLATELET COUNT, AUTOMATED 295 10^3/uL (150-450); RED BLOOD COUNT 4.39 10^6/uL (4.00-5.40)
[2021-01-10 12:39] LABS: ALBUMIN 3.4 GM/DL (3.2-5.2); ALT/SGPT 35 U/L (12-78); BILIRUBIN,DIRECT < 0.1 MG/DL (0.0-0.2); BILIRUBIN,TOTAL 0.2 MG/DL (0.2-1.0); BLOOD UREA NITROGEN 6 MG/DL (7-18); CALCIUM LEVEL 9.3 MG/DL (8.5-10.1); CARBON DIOXIDE LEVEL 25 MEQ/L (21-32); CHLORIDE LEVEL 108 MEQ/L (98-107); CREATININE FOR GFR 0.58 MG/DL (0.55-1.30); GLOMERULAR FILTRATION RATE > 60.0 (>58); GLUCOSE, FASTING 97 MG/DL (70-100); LIPASE 51 U/L (73-393); POTASSIUM SERUM 4.6 MEQ/L (3.5-5.1); SODIUM LEVEL 139 MEQ/L (136-145)
[2021-01-10] MEDS ORDERED: ISOVUE-370 76% 100ML VIAL As Ordered ONE (12:52)
--- NOTE | 2021-01-10 13:18 | REP ---
INDICATION: LLQ abd pain, hx divertic. COMPARISON: 12/19/2020 TECHNIQUE: Axial contrast-enhanced images from the lung bases to the pubic symphysis using 100 cc Isovue 370 intravenous contrast material. Coronal and sagittal reformations obtained. This CT examination was performed using the following dose reduction techniques: Automated exposure control, adjustment of mA and/or kv according to the patient's size, and the use of iterative reconstruction technique. FINDINGS: Liver suggest mild fatty infiltration. Spleen, pancreas, gallbladder, bilateral adrenal glands and kidneys are normal. The enteric system is without obstruction. Mild fat stranding again involving the descending and proximal sigmoid colon is essentially unchanged from multiple prior examinations and may reflect chronic changes although subtle acute diverticulitis cannot be excluded. Pelvis demonstrates normal bladder and age-appropriate uterus/left adnexa. Right ovarian cyst has slightly decreased in size to approximately 3.6 cm (previously measuring 5.6 cm). No ascites. No free air. No intraperitoneal or retroperitoneal adenopathy. Abdominal aorta and vasculature appear normal. Musculoskeletal structures are intact and without acute osseous abnormality. IMPRESSION: 1. Subtle pericolonic fat stranding involving the distal descending and proximal sigmoid colon similar to prior examinations. This may represent chronic changes, but subtle acute diverticulitis cannot be excluded. Remainder of the small and large bowel is unremarkable. 2. 3.6 cm right ovarian cyst decreased in size from prior examination. 3. No further acute abdominopelvic pathology appreciated. <Electronically signed by Willem Deng > 01/10/21 [id number]
[2021-01-10] MEDS ORDERED: KETO10TAB PO (13:35)
[2021-01-10] MEDS ORDERED: HYDR-3713 PO (13:35)
[2021-01-10] MEDS ORDERED: AUGM875T28 PO (13:35)
[2021-01-10] MEDS ORDERED: AUGMENTIN 875 MG TAB PO ONE (13:40)
[2021-01-10 13:57] VITALS: BP 124/84
== END 2021-01-10 13:59 | disposition home or self-care (01) ==
LOC: M ED 11:15
DX: K57.32 Diverticulitis of large intestine without perforation or abscess without bleeding (principal); N83.201 Unspecified ovarian cyst, right side; I10 Essential (primary) hypertension; M79.7 Fibromyalgia; K58.9 Irritable bowel syndrome, unspecified; F17.200 Nicotine dependence, unspecified, uncomplicated; Z79.899 Other long term (current) drug therapy; Z88.1 Allergy status to other antibiotic agents; Z88.5 Allergy status to narcotic agent; Z88.8 Allergy status to other drugs, medicaments and biological substances; Z90.49 Acquired absence of other specified parts of digestive tract; Z98.890 Other specified postprocedural states
CPT/HCPCS: 74177; 80048; 80076; 83690; 85025; 96374; 96375; 99284; J1885; J2405; Q9967

== ENCOUNTER → 2021-05-09 | Outpatient (REF) | payer OTHER ==
[~2021-05-09] MED LIST changes: -CYMB60CA3 PO; +CYMB60CA4 PO; +HYDR-3713 PO
== END ==
LOC: M LAB REF 16:30
PROVIDERS: ATTEND Physician Assistant
DX: R50.9 Fever, unspecified (principal); R05.9 Cough, unspecified

== ENCOUNTER 2021-08-15 13:31 | Observation (INO) | payer OTHER ==
[~2021-08-15] VITALS: Ht 160 cm; Wt 70.6 kg
[~2021-08-15 13:31] MED LIST changes: -FLUC100T PO; +FLUC100T3 PO; +TIZA10TA PO; -TIZA4TAB4 PO
[2021-08-15] MEDS ORDERED: PARO20TA3 (14:13)
[2021-08-15] MEDS ORDERED: CYAN1000VL (14:13)
[2021-08-15] MEDS ORDERED: GABAPENTIN 300 MG CAP PO ONE (15:10)
[2021-08-15 15:14] LABS: BASO # 0.1 10^3/uL (0.0-0.2); BASO % 1.6 % (0.0-1.0); EOS # 0.3 10^3/uL (0.0-0.5); EOS % 4.7 % (0.0-3.0); HEMATOCRIT 41.6 % (36.0-47.0); HEMOGLOBIN 14.1 g/dl (12.0-15.5); LYMPH # 2.9 10^3/uL (1.5-5.0); LYMPH % 40.3 % (24.0-44.0); MEAN CORPUSCULAR HEMOGLOBIN 31.8 pg (27.0-33.0); MEAN CORPUSCULAR HGB CONC 33.9 g/dl (32.0-36.5); MEAN CORPUSCULAR VOLUME 93.7 fl (80.0-96.0); MONO # 0.6 10^3/uL (0.0-0.8); MONO % 8.3 % (2.0-8.0); NEUTROPHILS # 3.2 10^3/uL (1.5-8.5); PLATELET COUNT, AUTOMATED 261 10^3/uL (150-450); RED BLOOD COUNT 4.44 10^6/uL (4.00-5.40); WHITE BLOOD COUNT 7.1 10^3/uL (4.0-10.0)
[2021-08-15 15:25] LABS: INR 0.93; PARTIAL THROMBOPLASTIN TIME 29.7 SECONDS (25.9-37.0); PROTHROMBIN TIME 12.9 SECONDS (12.7-14.5)
[2021-08-15 15:43] LABS: CK-MB VALUE MASS < 1.0 NG/ML (<3.6); CPK CREATINE PHOSPHOKINASE 69 U/L (26-192); MB/CK RELATIVE INDEX 1.45 (< OR =4)
[2021-08-15 15:51] LABS: ALBUMIN 3.6 GM/DL (3.2-5.2); ALT/SGPT 27 U/L (12-78); BILIRUBIN,DIRECT < 0.1 MG/DL (0.0-0.2); BILIRUBIN,TOTAL 0.3 MG/DL (0.2-1.0); BLOOD UREA NITROGEN 5 MG/DL (7-18); CALCIUM LEVEL 8.9 MG/DL (8.5-10.1); CARBON DIOXIDE LEVEL 23 MEQ/L (21-32); CHLORIDE LEVEL 111 MEQ/L (98-107); FREE T4 1.14 NG/DL (0.76-1.46); GLOMERULAR FILTRATION RATE > 60.0 (>58); GLUCOSE, FASTING 86 MG/DL (70-100); POTASSIUM SERUM 4.1 MEQ/L (3.5-5.1); SODIUM LEVEL 140 MEQ/L (136-145); TOTAL PROTEIN 6.9 GM/DL (6.4-8.2)
[2021-08-15] MEDS ORDERED: ACETAMINOPHEN TAB 650MG DOSE (2X325MG) PO PRN (16:45)
[2021-08-15] MEDS ORDERED: MOM 30ML SUSPENSION UDC PO PRN (16:45)
[2021-08-15 18:22] VITALS: BP 126/80
[2021-08-16] MEDS ORDERED: ENOXAPARIN 40MG/0.4ML SYRINGE (J1650 PER 10MG) SC SCH (09:00)
== END 2021-08-15 18:32 | disposition left against medical advice (07) ==
LOC: M ED 13:31 → M ED INP 13:32
PROVIDERS: ADMIT Internal Medicine; ATTEND Internal Medicine
DX: G43.909 Migraine, unspecified, not intractable, without status migrainosus (principal); G50.0 Trigeminal neuralgia; R20.0 Anesthesia of skin; H53.8 Other visual disturbances; R53.1 Weakness; M50.20 Other cervical disc displacement, unspecified cervical region; K57.92 Diverticulitis of intestine, part unspecified, without perforation or abscess without bleeding; K21.9 Gastro-esophageal reflux disease without esophagitis; I10 Essential (primary) hypertension; F31.9 Bipolar disorder, unspecified; M19.90 Unspecified osteoarthritis, unspecified site; M79.7 Fibromyalgia; F17.200 Nicotine dependence, unspecified, uncomplicated; Z88.1 Allergy status to other antibiotic agents; Z88.5 Allergy status to narcotic agent; Z79.899 Other long term (current) drug therapy

== ENCOUNTER → 2021-08-20 | Outpatient (CLI) | payer OTHER ==
[~2021-08-20] MED LIST changes: +CYAN1000VL; +PARO20TA3
== END ==
LOC: M RAD 09:40
PROVIDERS: ATTEND Physician Assistant
DX: R53.1 Weakness (principal)

== ENCOUNTER 2021-09-02 23:07 | Emergency (ER) | payer OTHER ==
[~2021-09-02] VITALS: Ht 160 cm; Wt 71.6 kg
[2021-09-02] MEDS ORDERED: AMOX875T2 (23:22)
[2021-09-03] MEDS ORDERED: ONDANSETRON 4MG/2ML VIAL IV ONE (00:10)
[2021-09-03] MEDS ORDERED: NS 1,000 ML IV ONE (00:10)
[2021-09-03] MEDS ORDERED: fentaNYL 100 MCG/2 ML INJECTION IV ONE (00:10)
[2021-09-03 00:50] LABS: BASO # 0.2 10^3/uL (0.0-0.2); BASO % 1.2 % (0.0-1.0); EOS # 0.5 10^3/uL (0.0-0.5); EOS % 4.1 % (0.0-3.0); HEMATOCRIT 43.9 % (36.0-47.0); HEMOGLOBIN 15.2 g/dl (12.0-15.5); LYMPH # 4.2 10^3/uL (1.5-5.0); LYMPH % 32.6 % (24.0-44.0); MEAN CORPUSCULAR HEMOGLOBIN 32.3 pg (27.0-33.0); MEAN CORPUSCULAR HGB CONC 34.6 g/dl (32.0-36.5); MEAN CORPUSCULAR VOLUME 93.2 fl (80.0-96.0); MONO # 0.8 10^3/uL (0.0-0.8); MONO % 6.2 % (2.0-8.0); NEUTROPHILS # 7.2 10^3/uL (1.5-8.5); NEUTROPHILS % 55.7 % (36.0-66.0); PLATELET COUNT, AUTOMATED 293 10^3/uL (150-450); RED BLOOD COUNT 4.71 10^6/uL (4.00-5.40); WHITE BLOOD COUNT 12.9 10^3/uL (4.0-10.0)
[2021-09-03 01:03] LABS: ALBUMIN 3.6 GM/DL (3.2-5.2); ALT/SGPT 30 U/L (12-78); BILIRUBIN,DIRECT < 0.1 MG/DL (0.0-0.2); BILIRUBIN,TOTAL < 0.1 MG/DL (0.2-1.0); BLOOD UREA NITROGEN 5 MG/DL (7-18); CALCIUM LEVEL 9.4 MG/DL (8.5-10.1); CARBON DIOXIDE LEVEL 23 MEQ/L (21-32); CHLORIDE LEVEL 108 MEQ/L (98-107); GLOMERULAR FILTRATION RATE > 60.0 (>58); GLUCOSE, FASTING 78 MG/DL (70-100); LIPASE 61 U/L (73-393); POTASSIUM SERUM 3.8 MEQ/L (3.5-5.1); SODIUM LEVEL 137 MEQ/L (136-145); TOTAL PROTEIN 7.1 GM/DL (6.4-8.2)
[2021-09-03] MEDS ORDERED: ISOVUE-370 76% 100ML VIAL As Ordered ONE (01:09)
[2021-09-03 02:56] VITALS: BP 137/60
[2021-09-03] MEDS ORDERED: metroNIDAZOLE (FLAGYL) 500MG TABLET PO ONE (04:10)
[2021-09-03] MEDS ORDERED: METR-265 PO (04:13)
[2021-09-03] MEDS ORDERED: OXYCODONE/APAP 5MG/325MG(BULK FOR ED) 1 TABLET PO ONE (04:15)
[2021-09-03] MEDS ORDERED: PERC5TAB12 PO (04:17)
== END 2021-09-03 04:32 | disposition home or self-care (01) ==
LOC: M ED 23:07
DX: K57.32 Diverticulitis of large intestine without perforation or abscess without bleeding (principal); R19.09 Other intra-abdominal and pelvic swelling, mass and lump; I10 Essential (primary) hypertension; M79.7 Fibromyalgia; K58.8 Other irritable bowel syndrome; Z88.1 Allergy status to other antibiotic agents; Z88.6 Allergy status to analgesic agent; Z79.899 Other long term (current) drug therapy
CPT/HCPCS: 74177; 80048; 80076; 83690; 85025; 96374; 96375; 99284; J2405; J3010; Q9967

== ENCOUNTER 2021-09-14 04:37 | Inpatient (IN) | payer OTHER ==
[~2021-09-14] VITALS: Ht 160 cm; Wt 72.1 kg
[~2021-09-14 04:37] MED LIST changes: +AMOX875T2; -CYAN1000VL; +CYAN1000VL IM; +METR-265 PO
[2021-09-14] MEDS ORDERED: NS 1,000 ML IV ONE (05:00)
[2021-09-14 05:24] LABS: HCG, SERUM QUALITATIVE NEGATIVE (NEGATIVE)
[2021-09-14 05:27] LABS: BASO # 0.2 10^3/uL (0.0-0.2); BASO % 1.1 % (0.0-1.0); EOS # 0.5 10^3/uL (0.0-0.5); EOS % 3.7 % (0.0-3.0); HEMATOCRIT 42.1 % (36.0-47.0); HEMOGLOBIN 14.2 g/dl (12.0-15.5); LYMPH # 3.9 10^3/uL (1.5-5.0); MEAN CORPUSCULAR HEMOGLOBIN 32.1 pg (27.0-33.0); MEAN CORPUSCULAR HGB CONC 33.7 g/dl (32.0-36.5); MEAN CORPUSCULAR VOLUME 95.2 fl (80.0-96.0); MONO # 1.1 10^3/uL (0.0-0.8); MONO % 8.1 % (2.0-8.0); NEUTROPHILS # 7.8 10^3/uL (1.5-8.5); NEUTROPHILS % 57.8 % (36.0-66.0); PLATELET COUNT, AUTOMATED 290 10^3/uL (150-450); RED BLOOD COUNT 4.42 10^6/uL (4.00-5.40); WHITE BLOOD COUNT 13.5 10^3/uL (4.0-10.0)
[2021-09-14 05:31] LABS: ALBUMIN 3.4 GM/DL (3.2-5.2); ALT/SGPT 40 U/L (12-78); BILIRUBIN,DIRECT < 0.1 MG/DL (0.0-0.2); BILIRUBIN,TOTAL 0.2 MG/DL (0.2-1.0); BLOOD UREA NITROGEN 6 MG/DL (7-18); CALCIUM LEVEL 8.9 MG/DL (8.5-10.1); CARBON DIOXIDE LEVEL 29 MEQ/L (21-32); CHLORIDE LEVEL 109 MEQ/L (98-107); CREATININE FOR GFR 0.69 MG/DL (0.55-1.30); GLOMERULAR FILTRATION RATE > 60.0 (>58); GLUCOSE, FASTING 87 MG/DL (70-100); LIPASE 80 U/L (73-393); SODIUM LEVEL 139 MEQ/L (136-145); TOTAL PROTEIN 7.2 GM/DL (6.4-8.2)
[2021-09-14] MEDS ORDERED: ISOVUE-370 76% 100ML VIAL As Ordered ONE (06:39)
[2021-09-14] MEDS ORDERED: fentaNYL 100 MCG/2 ML INJECTION IV ONE (07:25)
[2021-09-14] MEDS ORDERED: ONDANSETRON 4MG/2ML VIAL IV ONE (07:25)
[2021-09-14] MEDS ORDERED: GABA800T4 PO (08:27)
[2021-09-14] MEDS ORDERED: HOME MED LIST COMPLETE! XX SCH (08:30)
[2021-09-14] MEDS ORDERED: SENNA 8.6 MG TAB (SENOKOT) PO PRN (09:20)
[2021-09-14] MEDS ORDERED: ONDANSETRON 4MG/2ML VIAL IV PRN (09:30)
[2021-09-14] MEDS: NS 1,000 ML IV SCH ×2 (10:42→20:27)
[2021-09-14] MEDS: PERCOCET 5MG/325MG TAB PO PRN ×3 (10:42→22:28)
[2021-09-14] MEDS: GABAPENTIN 400MG CAP PO SCH ×3 (10:43→20:27)
[2021-09-14] MEDS: DOCUSATE SODIUM 100MG CAPSULE PO SCH ×2 (10:43→20:27)
[2021-09-14] MEDS: METOPROLOL TART 25 MG TABLET PO SCH ×2 (10:43→20:28)
[2021-09-14] MEDS: PIPERACILLIN/TAZOBACTAM SOD 3.375 GM in D5W MINI-BAG PLUS 50 ML IV SCH ×3 (11:35→22:27)
[2021-09-14 12:00] VITALS: BP 118/81
[2021-09-14] MEDS: LACTOBACILLUS ACIDOPHILUS CAP (BACID) PO SCH ×2 (12:49→18:06)
[2021-09-14] MEDS: NICOTINE 14 MG/24 HR TRANSDERMAL TD SCH (12:49)
[2021-09-14 14:00] VITALS: BP 112/76
[2021-09-14] MEDS ORDERED: PERCOCET 5MG/325MG TAB PO ONE (18:00)
[2021-09-14] MEDS: HEPARIN SOD (PORCINE) 5000UNITS/ML 1ML VIAL/SYRINGE SC SCH (20:27)
[2021-09-14] MEDS: PANTOPRAZOLE 40MG TAB (PROTONIX) PO SCH (20:27)
[2021-09-14] MEDS: amLODIPine 5 MG TAB PO SCH (20:28)
[2021-09-14 22:00] VITALS: BP 116/73
[2021-09-15] MEDS: NS 1,000 ML IV SCH ×3 (04:48→20:21)
[2021-09-15] MEDS: PIPERACILLIN/TAZOBACTAM SOD 3.375 GM in D5W MINI-BAG PLUS 50 ML IV SCH ×4 (04:48→21:12)
[2021-09-15] MEDS: PERCOCET 5MG/325MG TAB PO PRN ×3 (04:57→20:31)
[2021-09-15 06:00] VITALS: BP 114/72
[2021-09-15 06:36] LABS: HEMATOCRIT 36.8 % (36.0-47.0); HEMOGLOBIN 12.4 g/dl (12.0-15.5); MEAN CORPUSCULAR HGB CONC 33.7 g/dl (32.0-36.5); MEAN CORPUSCULAR VOLUME 94.8 fl (80.0-96.0); PLATELET COUNT, AUTOMATED 248 10^3/uL (150-450); RED BLOOD COUNT 3.88 10^6/uL (4.00-5.40)
[2021-09-15 07:32] LABS: ALBUMIN 2.9 GM/DL (3.2-5.2); ALT/SGPT 28 U/L (12-78); BILIRUBIN,TOTAL 0.6 MG/DL (0.2-1.0); BLOOD UREA NITROGEN 3 MG/DL (7-18); CARBON DIOXIDE LEVEL 24 MEQ/L (21-32); CHLORIDE LEVEL 108 MEQ/L (98-107); CREATININE FOR GFR 0.55 MG/DL (0.55-1.30); GLOMERULAR FILTRATION RATE > 60.0 (>58); GLUCOSE, FASTING 82 MG/DL (70-100); SODIUM LEVEL 138 MEQ/L (136-145); TOTAL PROTEIN 5.6 GM/DL (6.4-8.2)
[2021-09-15] MEDS: HEPARIN SOD (PORCINE) 5000UNITS/ML 1ML VIAL/SYRINGE SC SCH ×2 (10:07→20:21)
[2021-09-15] MEDS: NICOTINE 14 MG/24 HR TRANSDERMAL TD SCH (10:07)
[2021-09-15] MEDS: DOCUSATE SODIUM 100MG CAPSULE PO SCH ×2 (10:07→20:22)
[2021-09-15] MEDS: GABAPENTIN 400MG CAP PO SCH ×3 (10:07→20:22)
[2021-09-15] MEDS: LACTOBACILLUS ACIDOPHILUS CAP (BACID) PO SCH ×3 (10:07→16:32)
[2021-09-15] MEDS: METOPROLOL TART 25 MG TABLET PO SCH ×2 (10:09→20:22)
[2021-09-15 14:00] VITALS: BP 112/72
[2021-09-15 20:00] VITALS: BP 118/55
[2021-09-15] MEDS: PANTOPRAZOLE 40MG TAB (PROTONIX) PO SCH (20:22)
[2021-09-15] MEDS: amLODIPine 5 MG TAB PO SCH (20:23)
[2021-09-16] MEDS: PERCOCET 5MG/325MG TAB PO PRN ×2 (02:08→06:02)
[2021-09-16] MEDS: PIPERACILLIN/TAZOBACTAM SOD 3.375 GM in D5W MINI-BAG PLUS 50 ML IV SCH (04:13)
[2021-09-16 05:44] VITALS: BP 126/79
[2021-09-16 06:25] LABS: BASO # 0.1 10^3/uL (0.0-0.2); BASO % 1.9 % (0.0-1.0); EOS # 0.4 10^3/uL (0.0-0.5); EOS % 5.9 % (0.0-3.0); HEMATOCRIT 37.9 % (36.0-47.0); HEMOGLOBIN 12.8 g/dl (12.0-15.5); LYMPH # 2.7 10^3/uL (1.5-5.0); LYMPH % 45.6 % (24.0-44.0); MEAN CORPUSCULAR HEMOGLOBIN 31.9 pg (27.0-33.0); MEAN CORPUSCULAR HGB CONC 33.8 g/dl (32.0-36.5); MEAN CORPUSCULAR VOLUME 94.5 fl (80.0-96.0); MONO # 0.5 10^3/uL (0.0-0.8); MONO % 8.1 % (2.0-8.0); NEUTROPHILS # 2.3 10^3/uL (1.5-8.5); NEUTROPHILS % 38.3 % (36.0-66.0); PLATELET COUNT, AUTOMATED 251 10^3/uL (150-450); RED BLOOD COUNT 4.01 10^6/uL (4.00-5.40); WHITE BLOOD COUNT 5.9 10^3/uL (4.0-10.0)
[2021-09-16 07:38] LABS: ALT/SGPT 32 U/L (12-78); BILIRUBIN,TOTAL 0.2 MG/DL (0.2-1.0); BLOOD UREA NITROGEN 6 MG/DL (7-18); CALCIUM LEVEL 8.5 MG/DL (8.5-10.1); CARBON DIOXIDE LEVEL 24 MEQ/L (21-32); CHLORIDE LEVEL 109 MEQ/L (98-107); CREATININE FOR GFR 0.61 MG/DL (0.55-1.30); GLOMERULAR FILTRATION RATE > 60.0 (>58); GLUCOSE, FASTING 79 MG/DL (70-100); SODIUM LEVEL 139 MEQ/L (136-145); TOTAL PROTEIN 6.2 GM/DL (6.4-8.2)
[2021-09-16] MEDS ORDERED: AMOX875T2 PO (07:53)
[2021-09-16] MEDS ORDERED: METR-265 PO (07:53)
[2021-09-16] MEDS ORDERED: COLA100C5 PO (07:53)
[2021-09-16] MEDS ORDERED: SENN18TA PO (07:53)
[2021-09-16] MEDS ORDERED: PERCOCET PO (07:53)
[2021-09-16 08:00] VITALS: BP 128/90
[2021-09-16] MEDS: NICOTINE 14 MG/24 HR TRANSDERMAL TD SCH (08:09)
[2021-09-16 08:10] VITALS: BP 128/90
[2021-09-16] MEDS: LACTOBACILLUS ACIDOPHILUS CAP (BACID) PO SCH (08:10)
[2021-09-16] MEDS: DOCUSATE SODIUM 100MG CAPSULE PO SCH (08:10)
[2021-09-16] MEDS: METOPROLOL TART 25 MG TABLET PO SCH (08:10)
[2021-09-16] MEDS: HEPARIN SOD (PORCINE) 5000UNITS/ML 1ML VIAL/SYRINGE SC SCH ×2 (08:10→08:11)
[2021-09-16] MEDS: GABAPENTIN 400MG CAP PO SCH (08:11)
== END 2021-09-16 10:38 | disposition home or self-care (01) | DRG 244 ==
LOC: M ED 04:37 → M ED INP 08:38 → ENRESERV 09:55 → M MSPAV 11:40
PROVIDERS: ADMIT Internal Medicine; ATTEND Internal Medicine
DX: K57.32 Diverticulitis of large intestine without perforation or abscess without bleeding (principal); I10 Essential (primary) hypertension; K21.9 Gastro-esophageal reflux disease without esophagitis; F31.9 Bipolar disorder, unspecified; M19.90 Unspecified osteoarthritis, unspecified site; M79.7 Fibromyalgia; G43.909 Migraine, unspecified, not intractable, without status migrainosus; F17.200 Nicotine dependence, unspecified, uncomplicated; Z79.899 Other long term (current) drug therapy; Z88.1 Allergy status to other antibiotic agents; Z88.5 Allergy status to narcotic agent; Z88.8 Allergy status to other drugs, medicaments and biological substances; Z86.16 Personal history of COVID-19

== ENCOUNTER 2021-09-19 21:20 | Emergency (ER) | payer OTHER ==
[~2021-09-19] VITALS: Ht 160 cm; Wt 69.5 kg
[~2021-09-19 21:20] MED LIST changes: +AMOX875T2 PO; +COLA100C5 PO; +GABA800T4 PO; +PERCOCET PO; +SENN18TA PO
[2021-09-19 21:22] VITALS: BP 121/83
[2021-09-21] MEDS ORDERED: METR-265 PO (19:14)
[2021-09-21] MEDS ORDERED: PERCOCET PO (19:14)
[2021-09-21] MEDS ORDERED: SENN-80 PO (19:14)
[2021-09-21] MEDS ORDERED: MM S100C PO (19:14)
[2021-09-21] MEDS ORDERED: AMOX875T2 PO (19:14)
== END 2021-09-20 01:20 | disposition left against medical advice (07) ==
LOC: M ED 21:20
DX: Z53.21 Procedure and treatment not carried out due to patient leaving prior to being seen by health care provider (principal)

== ENCOUNTER 2021-09-21 01:03 | Emergency (ER) | payer OTHER ==
[~2021-09-21] VITALS: Ht 160 cm; Wt 68.2 kg
[2021-09-21 04:29] VITALS: BP 121/82
[2021-09-21] MEDS ORDERED: AMOX875T2 PO (19:14)
[2021-09-21] MEDS ORDERED: PERCOCET PO (19:14)
[2021-09-21] MEDS ORDERED: SENN-80 PO (19:14)
[2021-09-21] MEDS ORDERED: MM S100C PO (19:14)
[2021-09-21] MEDS ORDERED: METR-265 PO (19:14)
== END 2021-09-21 04:34 | disposition left against medical advice (07) ==
LOC: M ED 01:03
DX: Z53.21 Procedure and treatment not carried out due to patient leaving prior to being seen by health care provider (principal)

== ENCOUNTER 2021-09-21 13:09 | Inpatient (IN) | payer OTHER ==
[~2021-09-21] VITALS: Ht 160 cm; Wt 70.0 kg
[2021-09-21] MEDS ORDERED: NS 1,000 ML IV ONE (14:15)
[2021-09-21] MEDS ORDERED: ONDANSETRON 4MG/2ML VIAL IV ONE ×2 (14:15→18:45)
[2021-09-21 14:18] LABS: BASO # 0.1 10^3/uL (0.0-0.2); EOS # 0.3 10^3/uL (0.0-0.5); EOS % 3.1 % (0.0-3.0); HEMATOCRIT 40.7 % (36.0-47.0); HEMOGLOBIN 14.1 g/dl (12.0-15.5); LYMPH # 2.7 10^3/uL (1.5-5.0); LYMPH % 25.2 % (24.0-44.0); MEAN CORPUSCULAR HEMOGLOBIN 31.8 pg (27.0-33.0); MEAN CORPUSCULAR HGB CONC 34.6 g/dl (32.0-36.5); MEAN CORPUSCULAR VOLUME 91.7 fl (80.0-96.0); MONO # 0.9 10^3/uL (0.0-0.8); MONO % 8.7 % (2.0-8.0); NEUTROPHILS # 6.5 10^3/uL (1.5-8.5); NEUTROPHILS % 61.8 % (36.0-66.0); PLATELET COUNT, AUTOMATED 280 10^3/uL (150-450); RED BLOOD COUNT 4.44 10^6/uL (4.00-5.40); WHITE BLOOD COUNT 10.6 10^3/uL (4.0-10.0)
[2021-09-21 14:38] LABS: BLOOD UREA NITROGEN 7 MG/DL (7-18); C REACTIVE PROTEIN QUANTITATIV 1.75 MG/DL (0.00-0.30); CALCIUM LEVEL 8.8 MG/DL (8.5-10.1); CARBON DIOXIDE LEVEL 24 MEQ/L (21-32); CHLORIDE LEVEL 108 MEQ/L (98-107); CREATININE FOR GFR 0.61 MG/DL (0.55-1.30); GLOMERULAR FILTRATION RATE > 60.0 (>58); GLUCOSE, FASTING 98 MG/DL (70-100); POTASSIUM SERUM 3.9 MEQ/L (3.5-5.1); SODIUM LEVEL 136 MEQ/L (136-145)
[2021-09-21 14:45] LABS: ERYTHROCYTE SEDIMENTATION RATE 19 mm/hr (0-20)
[2021-09-21] MEDS ORDERED: ISOVUE-370 76% 100ML VIAL As Ordered ONE (15:51)
[2021-09-21] MEDS ORDERED: metroNIDAZOLE 500 MG in IV 1 EA IV ONE (18:45)
[2021-09-21] MEDS ORDERED: PIPERACILLIN/TAZOBACTAM SOD 3.375 GM in D5W MINI-BAG PLUS 50 ML IV ONE (18:45)
[2021-09-21] MEDS ORDERED: PERCOCET 5MG/325MG TAB PO ONE (18:45)
[2021-09-21] MEDS ORDERED: METR-265 PO (19:14)
[2021-09-21] MEDS ORDERED: PERCOCET PO (19:14)
[2021-09-21] MEDS ORDERED: AMOX875T2 PO (19:14)
[2021-09-21] MEDS ORDERED: MM S100C PO (19:14)
[2021-09-21] MEDS ORDERED: SENN-80 PO (19:14)
[2021-09-21] MEDS ORDERED: HOME MED LIST COMPLETE! XX SCH (19:15)
[2021-09-21] MEDS ORDERED: HYDROMORPHONE HCL 0.5 MG/ 0.5 ML SYRINGE (J1170 PER 1) IV ONE (21:00)
[2021-09-21] MEDS ORDERED: NICOTINE 21MG/24HR 1 EA TRANSDERMAL TD ONE (21:00)
[2021-09-21] MEDS: PANTOPRAZOLE 40MG VIAL (C9113 PER 1) IV SCH (21:00)
[2021-09-21] MEDS: NS 1,000 ML IV SCH (21:00)
[2021-09-21 23:30] VITALS: BP 103/64
[2021-09-21] MEDS: PIPERACILLIN/TAZOBACTAM SOD 3.375 GM in D5W MINI-BAG PLUS 50 ML IV SCH (23:53)
[2021-09-22] MEDS ORDERED: HOME MED LIST COMPLETE! XX SCH (00:40)
[2021-09-22] MEDS ORDERED: DOCUSATE SODIUM 100MG CAPSULE PO ONE (01:00)
[2021-09-22] MEDS: ONDANSETRON 4MG/2ML VIAL IV PRN ×4 (01:13→23:33)
[2021-09-22] MEDS: PERCOCET 5MG/325MG TAB PO PRN ×4 (03:14→23:34)
[2021-09-22] MEDS: PIPERACILLIN/TAZOBACTAM SOD 3.375 GM in D5W MINI-BAG PLUS 50 ML IV SCH ×4 (05:53→23:33)
[2021-09-22 05:55] VITALS: BP 114/68
[2021-09-22 08:34] LABS: HEMATOCRIT 36.7 % (36.0-47.0); HEMOGLOBIN 12.7 g/dl (12.0-15.5); MEAN CORPUSCULAR HEMOGLOBIN 32.2 pg (27.0-33.0); MEAN CORPUSCULAR HGB CONC 34.6 g/dl (32.0-36.5); MEAN CORPUSCULAR VOLUME 92.9 fl (80.0-96.0); PLATELET COUNT, AUTOMATED 253 10^3/uL (150-450); RED BLOOD COUNT 3.95 10^6/uL (4.00-5.40); WHITE BLOOD COUNT 10.2 10^3/uL (4.0-10.0)
[2021-09-22 09:02] LABS: BLOOD UREA NITROGEN 5 MG/DL (7-18); CALCIUM LEVEL 8.1 MG/DL (8.5-10.1); CARBON DIOXIDE LEVEL 23 MEQ/L (21-32); CHLORIDE LEVEL 113 MEQ/L (98-107); CREATININE FOR GFR 0.55 MG/DL (0.55-1.30); GLOMERULAR FILTRATION RATE > 60.0 (>58); GLUCOSE, FASTING 81 MG/DL (70-100); POTASSIUM SERUM 3.9 MEQ/L (3.5-5.1); SODIUM LEVEL 140 MEQ/L (136-145)
[2021-09-22] MEDS: ENOXAPARIN 40MG/0.4ML SYRINGE (J1650 PER 10MG) SC SCH (09:30)
[2021-09-22] MEDS: NS 1,000 ML IV SCH (09:30)
[2021-09-22 14:00] VITALS: BP 121/67
[2021-09-22] MEDS: PANTOPRAZOLE 40MG VIAL (C9113 PER 1) IV SCH (20:08)
[2021-09-22 20:24] VITALS: BP 116/73
[2021-09-22] MEDS: METOPROLOL TART 25 MG TABLET PO SCH (20:49)
[2021-09-22] MEDS: amLODIPine 5 MG TAB PO SCH (20:49)
[2021-09-22] MEDS: GABAPENTIN 400MG CAP PO SCH (20:54)
[2021-09-22] MEDS: DOCUSATE SODIUM 100MG CAPSULE PO PRN (21:04)
[2021-09-23 02:49] VITALS: BP 133/78
[2021-09-23] MEDS: PIPERACILLIN/TAZOBACTAM SOD 3.375 GM in D5W MINI-BAG PLUS 50 ML IV SCH ×4 (05:15→23:22)
[2021-09-23 08:20] LABS: HEMATOCRIT 38.5 % (36.0-47.0); HEMOGLOBIN 13.3 g/dl (12.0-15.5); MEAN CORPUSCULAR HEMOGLOBIN 31.8 pg (27.0-33.0); MEAN CORPUSCULAR HGB CONC 34.5 g/dl (32.0-36.5); MEAN CORPUSCULAR VOLUME 92.1 fl (80.0-96.0); PLATELET COUNT, AUTOMATED 265 10^3/uL (150-450); RED BLOOD COUNT 4.18 10^6/uL (4.00-5.40); WHITE BLOOD COUNT 8.6 10^3/uL (4.0-10.0)
[2021-09-23] MEDS: GABAPENTIN 400MG CAP PO SCH ×3 (08:44→20:18)
[2021-09-23] MEDS ORDERED: MAGNESIUM CITRATE 300 ML BTL PO ONE (08:45)
[2021-09-23] MEDS: ENOXAPARIN 40MG/0.4ML SYRINGE (J1650 PER 10MG) SC SCH ×2 (08:45→09:00)
[2021-09-23] MEDS: PERCOCET 5MG/325MG TAB PO PRN ×3 (08:46→23:23)
[2021-09-23 08:48] LABS: ALBUMIN 3.2 GM/DL (3.2-5.2); ALT/SGPT 28 U/L (12-78); BILIRUBIN,TOTAL 0.4 MG/DL (0.2-1.0); BLOOD UREA NITROGEN 5 MG/DL (7-18); CALCIUM LEVEL 8.5 MG/DL (8.5-10.1); CARBON DIOXIDE LEVEL 21 MEQ/L (21-32); CHLORIDE LEVEL 110 MEQ/L (98-107); CREATININE FOR GFR 0.52 MG/DL (0.55-1.30); GLOMERULAR FILTRATION RATE > 60.0 (>58); GLUCOSE, FASTING 52 MG/DL (70-100); SODIUM LEVEL 141 MEQ/L (136-145); TOTAL PROTEIN 6.3 GM/DL (6.4-8.2)
[2021-09-23] MEDS: METOPROLOL TART 25 MG TABLET PO SCH ×2 (08:49→20:15)
[2021-09-23] MEDS: DOCUSATE SODIUM 100MG CAPSULE PO PRN (08:54)
[2021-09-23 14:00] VITALS: BP 121/60
[2021-09-23 20:15] VITALS: BP 104/68
[2021-09-23] MEDS: amLODIPine 5 MG TAB PO SCH (20:15)
[2021-09-23 20:18] VITALS: BP 104/68
[2021-09-23] MEDS: PANTOPRAZOLE 40MG VIAL (C9113 PER 1) IV SCH (20:18)
[2021-09-24 00:43] VITALS: BP 141/90
[2021-09-24] MEDS ORDERED: HYDROMORPHONE HCL 0.5 MG/ 0.5 ML SYRINGE (J1170 PER 1) IV ONE (00:50)
[2021-09-24] MEDS: ONDANSETRON 4MG/2ML VIAL IV PRN (01:09)
[2021-09-24] MEDS ORDERED: PREPARATION H OINTMENT (HEMORRHOID) PR PRN (03:05)
[2021-09-24] MEDS: PIPERACILLIN/TAZOBACTAM SOD 3.375 GM in D5W MINI-BAG PLUS 50 ML IV SCH (05:41)
[2021-09-24] MEDS: PERCOCET 5MG/325MG TAB PO PRN (05:42)
[2021-09-24 06:29] VITALS: BP 138/67
[2021-09-24 06:52] LABS: HEMATOCRIT 39.8 % (36.0-47.0); HEMOGLOBIN 13.7 g/dl (12.0-15.5); MEAN CORPUSCULAR HEMOGLOBIN 31.9 pg (27.0-33.0); MEAN CORPUSCULAR HGB CONC 34.4 g/dl (32.0-36.5); MEAN CORPUSCULAR VOLUME 92.6 fl (80.0-96.0); PLATELET COUNT, AUTOMATED 281 10^3/uL (150-450); WHITE BLOOD COUNT 8.9 10^3/uL (4.0-10.0)
[2021-09-24 07:17] LABS: BLOOD UREA NITROGEN 6 MG/DL (7-18); CALCIUM LEVEL 8.8 MG/DL (8.5-10.1); CARBON DIOXIDE LEVEL 26 MEQ/L (21-32); CHLORIDE LEVEL 106 MEQ/L (98-107); CREATININE FOR GFR 0.66 MG/DL (0.55-1.30); GLOMERULAR FILTRATION RATE > 60.0 (>58); GLUCOSE, FASTING 98 MG/DL (70-100); POTASSIUM SERUM 4.1 MEQ/L (3.5-5.1); SODIUM LEVEL 139 MEQ/L (136-145)
[2021-09-24] MEDS: GABAPENTIN 400MG CAP PO SCH (08:02)
[2021-09-24] MEDS: ENOXAPARIN 40MG/0.4ML SYRINGE (J1650 PER 10MG) SC SCH (08:02)
[2021-09-24] MEDS: METOPROLOL TART 25 MG TABLET PO SCH (08:02)
[2021-09-24] MEDS ORDERED: METR-265 PO (10:39)
[2021-09-24] MEDS ORDERED: BACT800T5 PO (10:39)
[2021-09-24] MEDS ORDERED: PERCOCET PO (10:39)
== END 2021-09-24 11:00 | disposition home or self-care (01) | DRG 244 ==
LOC: M ED 13:09 → M ED INP 20:07 → ENRESERV 09-23 01:41 → M MS5PR 09-23 02:48
PROVIDERS: ADMIT Family Medicine; ATTEND Internal Medicine
DX: K57.92 Diverticulitis of intestine, part unspecified, without perforation or abscess without bleeding (principal); I10 Essential (primary) hypertension; K21.9 Gastro-esophageal reflux disease without esophagitis; F31.9 Bipolar disorder, unspecified; M79.7 Fibromyalgia; G43.909 Migraine, unspecified, not intractable, without status migrainosus; Z79.899 Other long term (current) drug therapy; Z88.5 Allergy status to narcotic agent; Z88.8 Allergy status to other drugs, medicaments and biological substances; F17.210 Nicotine dependence, cigarettes, uncomplicated; M19.90 Unspecified osteoarthritis, unspecified site

== ENCOUNTER → 2021-11-15 | Outpatient (CLI) | payer OTHER ==
[~2021-11-15] MED LIST changes: +DICY10CA13 PO; +MM S100C PO; +NEUR300C PO; +PARO20TA3 PO; +SENN-80 PO
== END ==
LOC: M LABSMTC 11:27
PROVIDERS: ATTEND Anesthesiology
DX: Z01.812 Encounter for preprocedural laboratory examination (principal); Z20.822 Contact with and (suspected) exposure to COVID-19

== ENCOUNTER 2021-11-20 08:24 | Day surgery (SDC) | payer OTHER ==
[~2021-11-20] VITALS: Ht 160 cm; Wt 65.8 kg
[~2021-11-20 08:24] MED LIST changes: +NS 1,000 ML IV ONE
[2021-11-20] MEDS ORDERED: propofoL 200 MG/20 ML VIAL As Ordered ONE ×2 (09:33→09:57)
[2021-11-20 10:10] VITALS: BP 119/81
== END 2021-11-20 10:11 | disposition home or self-care (01) ==
LOC: M OPP 08:24
PROVIDERS: ATTEND Surgery
DX: K57.32 Diverticulitis of large intestine without perforation or abscess without bleeding (principal); K57.30 Diverticulosis of large intestine without perforation or abscess without bleeding; K64.1 Second degree hemorrhoids; Z79.899 Other long term (current) drug therapy; Z88.1 Allergy status to other antibiotic agents; Z88.5 Allergy status to narcotic agent

== ENCOUNTER → 2021-12-05 | Outpatient (REF) | payer OTHER ==
[~2021-12-05] MED LIST changes: -NS 1,000 ML IV ONE
[2021-12-05 18:29] LABS: APPEARANCE, URINE CLEAR (CLEAR); BACTERIA, URINE AUTO NEGATIVE (NEGATIVE); BILIRUBIN, URINE AUTO NEGATIVE (NEGATIVE); BLOOD, URINE BLOOD 1+ (NEGATIVE); COLOR, URINE STRAW (YELLOW); GLUCOSE, URINE (UA) AUTO NEGATIVE (NEGATIVE); KETONE, URINE AUTO NEGATIVE (NEGATIVE); LEUKOCYTE ESTERASE, URINE AUTO 1+ (NEGATIVE); MUCUS, URINE SMALL (NEGATIVE); NITRITE, URINE AUTO NEGATIVE (NEGATIVE); PROTEIN, URINE AUTO NEGATIVE (NEGATIVE); RBC, URINE AUTO 1 /HPF (0-3); SPECIFIC GRAVITY URINE AUTO 1.005 (1.002-1.035); SQUAMOUS EPITHELIAL CELL UR AU 3 /HPF (0-6); UROBILINOGEN, URINE AUTO 0.2 mg/dL (0.0-2.0); WBC, URINE AUTO 1 /HPF (0-3)
[2021-12-05 19:43] LABS: GC DNA AMPLIFICATION NEGATIVE (NEGATIVE)
== END ==
LOC: M LAB REF 16:20
PROVIDERS: ATTEND Physician Assistant
DX: N39.0 Urinary tract infection, site not specified (principal)

== ENCOUNTER → 2022-01-29 | Outpatient (CLI) | payer OTHER | LOC: M LABSMTC 09:17 | PROVIDERS: ATTEND Anesthesiology | DX: Z01.818 Encounter for other preprocedural examination (principal); Z11.52 Encounter for screening for COVID-19 ==

== ENCOUNTER 2022-02-03 10:01 | Inpatient (IN) | payer OTHER ==
[~2022-02-03] VITALS: Ht 160 cm; Wt 65.8 kg
[~2022-02-03 10:01] MED LIST changes: +ERTAPENEM SODIUM 1 GM in NS MINI-BAG PLUS 50 ML IV ONE
[2022-02-03] MEDS ORDERED: LR 1,000 ML IV SCH ×2 (10:30→13:30)
[2022-02-03] MEDS ORDERED: BUPIVACAINE/EPIN 0.25% 30 ML VIAL As Ordered ONE (10:40)
[2022-02-03] MEDS ORDERED: ONDANSETRON 4MG 2ML VIAL IV PRN ×2 (11:00→13:30)
[2022-02-03] MEDS ORDERED: DICYCLOMINE 10 MG CAP PO PRN (11:00)
[2022-02-03] MEDS ORDERED: KETOROLAC 60MG 2ML VIAL As Ordered ONE (11:43)
[2022-02-03] MEDS ORDERED: ALBUTEROL 6.7GM INHALER **FOR ANES. CART/OMNICELL ONLY As Ordered ONE (11:43)
[2022-02-03] MEDS ORDERED: ONDANSETRON 4MG 2ML VIAL As Ordered ONE (11:43)
[2022-02-03] MEDS ORDERED: MIDAZOLAM INJ 2MG/2ML VIAL (J2250 PER 1MG) As Ordered ONE (11:43)
[2022-02-03] MEDS ORDERED: fentaNYL 250 MCG/5 ML INJECTION As Ordered ONE (11:43)
[2022-02-03] MEDS ORDERED: dexameTHASONE 4 MG/ML 1ML VIAL (J1100 PER 1MG) As Ordered ONE (11:43)
[2022-02-03] MEDS ORDERED: SUGAMMADEX SODIUM 500 MG/5 ML VIAL (BRIDION) As Ordered ONE (11:43)
[2022-02-03] MEDS ORDERED: LIDOCAINE 2% 100MG/5ML SDV (FOR ANES.) As Ordered ONE (11:43)
[2022-02-03] MEDS ORDERED: ROCURONIUM BROMIDE 50 MG/5 ML VIAL As Ordered ONE ×2 (11:43→11:55)
[2022-02-03] MEDS ORDERED: propofoL 200 MG/20 ML VIAL As Ordered ONE (11:43)
[2022-02-03] MEDS ORDERED: GLYCOPYRROLATE INJ 0.2 MG/ML 2 ML VIAL As Ordered ONE (11:43)
[2022-02-03] MEDS ORDERED: HYDROmorphone HCL 2MG/ML 1ML VIAL As Ordered ONE (12:11)
[2022-02-03] MEDS: fentaNYL 100 MCG/2 ML INJECTION IV PRN ×4 (13:51→14:06)
[2022-02-03] MEDS: oxyCODONE 5MG TAB PO PRN ×2 (14:22→14:52)
[2022-02-03 15:15] VITALS: BP 104/69
[2022-02-03] MEDS: NS 1,000 ML IV SCH ×2 (15:21→23:42)
[2022-02-03 15:45] VITALS: BP 103/70
[2022-02-03] MEDS: KETOROLAC 30 MG/ML 1ML VIAL IV PRN ×2 (16:04→22:18)
[2022-02-03 16:45] VITALS: BP 111/74
[2022-02-03] MEDS: PIPERACILLIN/TAZOBACTAM SOD 3.375 GM in D5W MINI-BAG PLUS 50 ML IV SCH (17:19)
[2022-02-03 17:45] VITALS: BP 105/70
[2022-02-03] MEDS: NORCO, ANEXSIA 5/325MG TABLET (HYDROcodone/ACETAMINOPHEN) PO PRN (18:35)
[2022-02-03 22:07] VITALS: BP 129/75
[2022-02-03] MEDS: SENOKOT S TAB PO SCH (22:18)
[2022-02-03] MEDS: amLODIPine 5 MG TAB PO SCH (22:19)
[2022-02-03] MEDS: METOPROLOL TART 25 MG TABLET PO SCH (22:20)
[2022-02-03] MEDS: PARoxetine 20MG TABLET PO SCH (22:20)
[2022-02-03] MEDS: PANTOPRAZOLE 40MG TAB (PROTONIX) PO SCH (22:20)
[2022-02-03] MEDS: GABAPENTIN 300 MG CAP PO SCH (22:20)
[2022-02-04] MEDS: PIPERACILLIN/TAZOBACTAM SOD 3.375 GM in D5W MINI-BAG PLUS 50 ML IV SCH ×4 (00:09→18:21)
[2022-02-04] MEDS: NORCO, ANEXSIA 5/325MG TABLET (HYDROcodone/ACETAMINOPHEN) PO PRN ×3 (00:27→16:17)
[2022-02-04 02:02] VITALS: BP 95/56
[2022-02-04] MEDS: NS 1,000 ML IV SCH ×2 (05:19→11:44)
[2022-02-04] MEDS: KETOROLAC 30 MG/ML 1ML VIAL IV PRN (05:42)
[2022-02-04 06:00] VITALS: BP 100/58
[2022-02-04 07:18] LABS: HEMATOCRIT 36.6 % (36.0-47.0); HEMOGLOBIN 12.4 g/dl (12.0-15.5); MEAN CORPUSCULAR HEMOGLOBIN 32.9 pg (27.0-33.0); MEAN CORPUSCULAR HGB CONC 33.9 g/dl (32.0-36.5); MEAN CORPUSCULAR VOLUME 97.1 fl (80.0-96.0); PLATELET COUNT, AUTOMATED 223 10^3/uL (150-450); RED BLOOD COUNT 3.77 10^6/uL (4.00-5.40); WHITE BLOOD COUNT 12.7 10^3/uL (4.0-10.0)
[2022-02-04 07:54] LABS: BLOOD UREA NITROGEN 7 MG/DL (7-18); CREATININE FOR GFR 0.56 MG/DL (0.55-1.30); GLOMERULAR FILTRATION RATE > 60.0 (>58); GLUCOSE, FASTING 80 MG/DL (70-100)
[2022-02-04 07:55] LABS: ALT/SGPT 21 IU/L (0-32); BILIRUBIN,TOTAL 0.4 MG/DL (0.2-1.0); CALCIUM LEVEL 8.5 MG/DL (8.5-10.1); CARBON DIOXIDE LEVEL 21 mmol/L (20-29); CHLORIDE LEVEL 109 MEQ/L (98-107); SODIUM LEVEL 138 MEQ/L (136-145); TOTAL PROTEIN 6.1 GM/DL (6.4-8.2)
[2022-02-04 07:56] LABS: ALBUMIN 3.2 GM/DL (3.2-5.2)
[2022-02-04] MEDS: METOPROLOL TART 25 MG TABLET PO SCH ×2 (08:40→20:00)
[2022-02-04] MEDS: SENOKOT S TAB PO SCH ×2 (08:41→19:51)
[2022-02-04] MEDS: GABAPENTIN 300 MG CAP PO SCH ×3 (08:41→19:51)
[2022-02-04] MEDS: ENOXAPARIN 40MG/0.4ML SYRINGE (J1650 PER 10MG) SC SCH (08:41)
[2022-02-04 10:00] VITALS: BP 108/63
[2022-02-04 14:00] VITALS: BP 106/63
[2022-02-04] MEDS: PARoxetine 20MG TABLET PO SCH (19:51)
[2022-02-04] MEDS: PANTOPRAZOLE 40MG TAB (PROTONIX) PO SCH (19:51)
[2022-02-04] MEDS: amLODIPine 5 MG TAB PO SCH (19:59)
[2022-02-04 22:00] VITALS: BP 101/60
[2022-02-05] MEDS: PIPERACILLIN/TAZOBACTAM SOD 3.375 GM in D5W MINI-BAG PLUS 50 ML IV SCH ×2 (00:26→05:08)
[2022-02-05] MEDS: NORCO, ANEXSIA 5/325MG TABLET (HYDROcodone/ACETAMINOPHEN) PO PRN ×3 (04:32→20:06)
[2022-02-05 06:00] VITALS: BP 101/60
[2022-02-05 06:28] LABS: HEMATOCRIT 35.6 % (36.0-47.0); HEMOGLOBIN 12.1 g/dl (12.0-15.5); MEAN CORPUSCULAR HEMOGLOBIN 32.8 pg (27.0-33.0); MEAN CORPUSCULAR VOLUME 96.5 fl (80.0-96.0); PLATELET COUNT, AUTOMATED 209 10^3/uL (150-450); RED BLOOD COUNT 3.69 10^6/uL (4.00-5.40); WHITE BLOOD COUNT 8.6 10^3/uL (4.0-10.0)
[2022-02-05 06:46] LABS: ALT/SGPT 18 U/L (12-78); BILIRUBIN,TOTAL 0.3 MG/DL (0.2-1.0); BLOOD UREA NITROGEN 5 MG/DL (7-18); CALCIUM LEVEL 8.3 MG/DL (8.5-10.1); CARBON DIOXIDE LEVEL 23 MEQ/L (21-32); CHLORIDE LEVEL 111 MEQ/L (98-107); CREATININE FOR GFR 0.59 MG/DL (0.55-1.30); GLOMERULAR FILTRATION RATE > 60.0 (>58); GLUCOSE, FASTING 78 MG/DL (70-100); POTASSIUM SERUM 3.5 MEQ/L (3.5-5.1); SODIUM LEVEL 142 MEQ/L (136-145); TOTAL PROTEIN 5.7 GM/DL (6.4-8.2)
[2022-02-05] MEDS: METOPROLOL TART 25 MG TABLET PO SCH ×2 (09:00→20:08)
[2022-02-05] MEDS: SENOKOT S TAB PO SCH ×2 (09:17→20:07)
[2022-02-05] MEDS: GABAPENTIN 300 MG CAP PO SCH ×3 (09:17→20:06)
[2022-02-05] MEDS: ENOXAPARIN 40MG/0.4ML SYRINGE (J1650 PER 10MG) SC SCH (09:18)
[2022-02-05 14:00] VITALS: BP 117/70
[2022-02-05] MEDS: KETOROLAC 30 MG/ML 1ML VIAL IV PRN (16:16)
[2022-02-05 20:00] VITALS: BP 116/75
[2022-02-05] MEDS: PANTOPRAZOLE 40MG TAB (PROTONIX) PO SCH (20:06)
[2022-02-05] MEDS: PARoxetine 20MG TABLET PO SCH (20:07)
[2022-02-05] MEDS: amLODIPine 5 MG TAB PO SCH (20:07)
[2022-02-05 22:00] VITALS: BP 116/75
[2022-02-06] MEDS: NORCO, ANEXSIA 5/325MG TABLET (HYDROcodone/ACETAMINOPHEN) PO PRN ×2 (04:42→12:49)
[2022-02-06 06:00] VITALS: BP 129/80
[2022-02-06 06:43] LABS: HEMATOCRIT 37.3 % (36.0-47.0); HEMOGLOBIN 12.7 g/dl (12.0-15.5); PLATELET COUNT, AUTOMATED 217 10^3/uL (150-450); RED BLOOD COUNT 3.97 10^6/uL (4.00-5.40); WHITE BLOOD COUNT 6.9 10^3/uL (4.0-10.0)
[2022-02-06 07:11] LABS: ALT/SGPT 24 U/L (12-78); BILIRUBIN,TOTAL 0.4 MG/DL (0.2-1.0); BLOOD UREA NITROGEN 4 MG/DL (7-18); CALCIUM LEVEL 8.6 MG/DL (8.5-10.1); CARBON DIOXIDE LEVEL 25 MEQ/L (21-32); CHLORIDE LEVEL 106 MEQ/L (98-107); CREATININE FOR GFR 0.51 MG/DL (0.55-1.30); GLOMERULAR FILTRATION RATE > 60.0 (>58); GLUCOSE, FASTING 79 MG/DL (70-100); POTASSIUM SERUM 3.3 MEQ/L (3.5-5.1); SODIUM LEVEL 137 MEQ/L (136-145); TOTAL PROTEIN 6.3 GM/DL (6.4-8.2)
[2022-02-06] MEDS ORDERED: HYDR-3715 PO (08:40)
[2022-02-06 09:00] VITALS: BP 115/70
[2022-02-06] MEDS: SENOKOT S TAB PO SCH (09:00)
[2022-02-06] MEDS: METOPROLOL TART 25 MG TABLET PO SCH (09:00)
[2022-02-06] MEDS: GABAPENTIN 300 MG CAP PO SCH (09:37)
[2022-02-06] MEDS: ENOXAPARIN 40MG/0.4ML SYRINGE (J1650 PER 10MG) SC SCH (09:38)
== END 2022-02-06 13:30 | disposition home or self-care (01) | DRG 221 ==
LOC: M OR 10:01 → M MS5PR 15:15
PROVIDERS: ADMIT Surgery; ATTEND Surgery
PROC: 8E0W4CZ Robotic Assisted Procedure of Trunk Region, Percutaneous Endoscopic Approach (ICD-10-PCS; 2022-02-03)
PROC: 0DTN4ZZ Resection of Sigmoid Colon, Percutaneous Endoscopic Approach (ICD-10-PCS; principal; 2022-02-03 11:40)
DX: K57.32 Diverticulitis of large intestine without perforation or abscess without bleeding (principal); I10 Essential (primary) hypertension; F17.200 Nicotine dependence, unspecified, uncomplicated; K21.9 Gastro-esophageal reflux disease without esophagitis; F31.9 Bipolar disorder, unspecified; M19.90 Unspecified osteoarthritis, unspecified site; M79.7 Fibromyalgia; G43.709 Chronic migraine without aura, not intractable, without status migrainosus; Z88.1 Allergy status to other antibiotic agents; Z88.5 Allergy status to narcotic agent; Z90.49 Acquired absence of other specified parts of digestive tract; Z79.899 Other long term (current) drug therapy

== ENCOUNTER 2022-02-06 19:48 | Emergency (ER) | payer OTHER ==
[~2022-02-06] VITALS: Ht 160 cm; Wt 65.9 kg
[~2022-02-06 19:48] MED LIST changes: -ERTAPENEM SODIUM 1 GM in NS MINI-BAG PLUS 50 ML IV ONE
[2022-02-06 21:32] LABS: BASO # 0.1 10^3/uL (0.0-0.2); EOS # 0.3 10^3/uL (0.0-0.5); EOS % 3.7 % (0.0-3.0); HEMATOCRIT 37.5 % (36.0-47.0); HEMOGLOBIN 13.2 g/dl (12.0-15.5); LYMPH # 3.2 10^3/uL (1.5-5.0); MEAN CORPUSCULAR HEMOGLOBIN 32.8 pg (27.0-33.0); MEAN CORPUSCULAR HGB CONC 35.2 g/dl (32.0-36.5); MEAN CORPUSCULAR VOLUME 93.1 fl (80.0-96.0); MONO # 0.6 10^3/uL (0.0-0.8); MONO % 7.9 % (2.0-8.0); NEUTROPHILS # 3.6 10^3/uL (1.5-8.5); NEUTROPHILS % 46.1 % (36.0-66.0); PLATELET COUNT, AUTOMATED 237 10^3/uL (150-450); RED BLOOD COUNT 4.03 10^6/uL (4.00-5.40); WHITE BLOOD COUNT 7.8 10^3/uL (4.0-10.0)
[2022-02-06 21:46] LABS: INR 0.99; PROTHROMBIN TIME 13.5 SECONDS (12.7-14.5)
[2022-02-06 21:47] LABS: PARTIAL THROMBOPLASTIN TIME 32.7 SECONDS (25.9-37.0)
[2022-02-06 22:05] LABS: ALBUMIN 3.5 GM/DL (3.2-5.2); ALT/SGPT 20 U/L (12-78); BILIRUBIN,DIRECT 0.1 MG/DL (0.0-0.2); BILIRUBIN,TOTAL 0.2 MG/DL (0.2-1.0); BLOOD UREA NITROGEN 7 MG/DL (7-18); CALCIUM LEVEL 9.2 MG/DL (8.5-10.1); CARBON DIOXIDE LEVEL 25 MEQ/L (21-32); CHLORIDE LEVEL 110 MEQ/L (98-107); CREATININE FOR GFR 0.62 MG/DL (0.55-1.30); GLOMERULAR FILTRATION RATE > 60.0 (>58); GLUCOSE, FASTING 99 MG/DL (70-100); LIPASE 46 U/L (73-393); POTASSIUM SERUM 3.6 MEQ/L (3.5-5.1); SODIUM LEVEL 141 MEQ/L (136-145); TOTAL PROTEIN 6.6 GM/DL (6.4-8.2)
[2022-02-06 22:30] VITALS: BP 138/83
== END 2022-02-06 23:29 | disposition home or self-care (01) ==
LOC: M ED 19:48
DX: K92.2 Gastrointestinal hemorrhage, unspecified (principal); I10 Essential (primary) hypertension; M79.7 Fibromyalgia; K57.32 Diverticulitis of large intestine without perforation or abscess without bleeding; Z90.89 Acquired absence of other organs; Z88.1 Allergy status to other antibiotic agents; Z88.6 Allergy status to analgesic agent; Z79.899 Other long term (current) drug therapy

== ENCOUNTER → 2022-02-27 | Outpatient (REF) | payer OTHER ==
[2022-02-27 17:28] LABS: APPEARANCE, URINE MANUAL CLOUDY (CLEAR); COLOR, URINE MANUAL LT YELLOW (YELLOW)
[2022-02-27 17:29] LABS: BILIRUBIN, URINE MANUAL NEGATIVE (NEGATIVE); BLOOD URINE MANUAL NEGATIVE (NEGATIVE); GLUCOSE, URINE (UA) MANUAL NEGATIVE (NEGATIVE); KETONE, URINE MANUAL NEGATIVE (NEGATIVE); LEUKOCYTE ESTERASE, URINE MAN POSITIVE (NEGATIVE); NITRITE, URINE MANUAL NEGATIVE (NEGATIVE); PROTEIN, URINE MANUAL NEGATIVE (NEGATIVE); SPECIFIC GRAVITY,URINE MANUAL 1.005 (1.002-1.035); UROBILINOGEN, URINE MANUAL NORMAL (NORMAL)
[2022-02-27 17:30] LABS: URINE PREG TEST NEGATIVE (NEGATIVE)
[2022-02-27 17:41] LABS: BACTERIA, URINE LARGE AMOUNT; HYALINE CAST, URINE NONE SEEN /lpf (0-1); RBC, URINE 0-1 /hpf (0-3); SQUAMOUS EPITHELIAL CELL URINE LARGE AMOUNT /hpf (SMALL AMT)
== END ==
LOC: M LAB REF 16:20
PROVIDERS: ATTEND Physician Assistant
DX: N91.2 Amenorrhea, unspecified (principal); N39.0 Urinary tract infection, site not specified

== ENCOUNTER → 2022-03-11 | Outpatient (REF) | payer OTHER ==
[2022-03-11 16:38] LABS: APPEARANCE, URINE MANUAL CLEAR (CLEAR); COLOR, URINE MANUAL COLORLESS (YELLOW)
[2022-03-11 16:39] LABS: BILIRUBIN, URINE MANUAL NEGATIVE (NEGATIVE); GLUCOSE, URINE (UA) MANUAL NEGATIVE (NEGATIVE); KETONE, URINE MANUAL NEGATIVE (NEGATIVE); LEUKOCYTE ESTERASE, URINE MAN NEGATIVE (NEGATIVE); NITRITE, URINE MANUAL NEGATIVE (NEGATIVE); PROTEIN, URINE MANUAL NEGATIVE (NEGATIVE); SPECIFIC GRAVITY,URINE MANUAL 1.005 (1.002-1.035); UROBILINOGEN, URINE MANUAL NORMAL (NORMAL)
[2022-03-11 16:40] LABS: BLOOD URINE MANUAL NEGATIVE (NEGATIVE)
== END ==
LOC: M LAB REF 16:17
PROVIDERS: ATTEND Physician Assistant Medical
DX: N39.0 Urinary tract infection, site not specified (principal)